=== PATIENT | female | born 1950 | race Caucasian/White ===

== ENCOUNTER 2018-10-26 20:30 | Outpatient (CLI) | payer MEDICARE, BC | END 2018-10-26 20:31 | LOC: SLEEPLAB 20:30 | PROVIDERS: ATTEND Family Medicine | DX: G47.33 Obstructive sleep apnea (adult) (pediatric) (principal); I50.9 Heart failure, unspecified; E11.9 Type 2 diabetes mellitus without complications; E66.9 Obesity, unspecified; I10 Essential (primary) hypertension | CPT/HCPCS: 95810 ==

== ENCOUNTER 2018-12-05 12:03 | Outpatient (CLI) | payer MEDICARE, BC ==
--- NOTE | 2018-12-05 12:49 | RAD ---
PA AND LATERAL CHEST: HISTORY: Dyspnea. COMPARISON: 08/28/2018 FINDINGS: Cardiomegaly with mild bilateral vascular congestion. No confluent pneumonia, overt edema, or pleura l effusion. Stable appearance from prior study. IMPRESSION: Stable cardiomegaly with mild bilateral vascular congestion. POS: TPC
== END 2018-12-05 12:04 | disposition home or self-care (01) ==
LOC: RAD 12:03
PROVIDERS: ATTEND Internal Medicine Pulmonary Disease
DX: R06.00 Dyspnea, unspecified (principal); I51.7 Cardiomegaly; R09.89 Other specified symptoms and signs involving the circulatory and respiratory systems
CPT/HCPCS: 71046

== ENCOUNTER 2019-01-20 08:05 | Inpatient (IN) | payer MEDICARE, BC ==
[2019-01-20 08:30] LABS: #Monocytes 0.9 thou/uL (0.11-0.59); #Neutrophils 5.4 thou/uL (1.40-6.50); %Basophils 0.4 % (0.0-1.0); %Eosinophils 0.4 % (0.0-10.0); %Lymphocytes 14.2 % (21.0-51.0); Hemoglobin 11.5 g/dL (12.0-16.0); Mean Corpuscular HGB CONC 32.1 g/dL (32.0-36.0); Mean Corpuscular Hemoglobin 29.6 pg (27.0-31.0); Mean Corpuscular Volume 92.2 fL (78.0-98.0); Mean Platelet Volume 8.3 fL (7.4-10.4); Platelet Count 164 thou/uL (130-400); RBC Distribution Width 14.2 % (11.5-14.5); White Blood Cell (WBC) Count 7.3 thou/uL (4.8-10.8)
--- NOTE | 2019-01-20 08:40 | RAD ---
EXAM: XR Chest 1 View Portable PROVIDED CLINICAL HISTORY: Pain COMPARISON: 12/05/2018 FINDINGS: Cardiac silhouette remains enlarged. Prominence of the pulmonary vasculature and pulmonary interstiti um. No focal consolidation, pleural fluid or pneumothorax apparent. IMPRESSION: Cardiomegaly and findings suggesting congestive failure.
[2019-01-20] MEDS ORDERED: Morphine 4 MG/ML VIAL ONE ×2 (08:42→09:07)
--- NOTE | 2019-01-20 08:42 | RAD ---
EXAM: XR Ankle Lt 3 View STANDARD PROVIDED CLINICAL HISTORY: Pain COMPARISON: None FINDINGS: There is no evidence for fracture or other acute osseous abnormality. Vascular calcifications are see n. Somewhat unusual ossification/calcification in a sheetlike manner involves the soft tissues anterior to the visualized mid tibial diaphyseal region. Posterior and plantar calcaneal enthesophyte formation is noted. IMPRESSION: 1. No evidence for an acute osseous abnormality. 2. Atherosclerosis. 3. Soft tissue findings at the anterior aspect of the tibia may reflect changes related to dermatomyo sitis. Chronic venous stasis could also be considered.
[2019-01-20 08:54] LABS: ALT (SGPT) 21 U/L (8-55); AST (SGOT) 21 U/L (5-34); Alkaline Phosphatase 91 U/L (40-150); Anion Gap 15 mmol/L (10-20); BUN (Urea Nitrogen) 51 mg/dL (9.8-20.1); Bilirubin, Total 1.1 mg/dL (0.2-1.2); CK (CPK) 146 U/L (29-168); Calc. Creatinine Clearance 0 mL/min (70-130); Calcium 9.3 mg/dL (7.8-10.44); Carbon Dioxide 20 mmol/L (23-31); Chloride 105 mmol/L (98-107); Estimated GFR-MDRD 30; Globulin 3.7 g/dL (2.4-3.5); Glucose 138 mg/dL (80-115); Potassium 4.4 mmol/L (3.5-5.1); Protein, Total 7.7 g/dL (6.0-8.3); Sodium 136 mmol/L (136-145)
[2019-01-20 08:55] LABS: Lipase 17 U/L (8-78)
--- NOTE | 2019-01-20 09:10 | ULT ---
EXAM: Bilateral lower extremity venous Doppler PROVIDED CLINICAL HISTORY: Lower extremity edema FINDINGS: Grayscale and color Doppler sonography with spectral analysis was performed of the common femoral, fe moral, popliteal, posterior tibial, greater saphenous and profunda femoral veins bilaterally. Evaluation is limited by patient body habitus. There is apparent noncompressibility involving the dis sindi femoral veins bilaterally. The evaluated venous structures demonstrate an otherwise normal sonographic appearance. Right-sided Hensley's cyst is noted. IMPRESSION: Findings suspicious for bilateral nonocclusive DVT. Evaluation is limited by body habitus.
[2019-01-20] MEDS ORDERED: Ondansetron PF 4 MG/2 ML Vial IVP PRN (09:55)
[2019-01-20] MEDS ORDERED: Acetaminophen 325 MG TAB PO PRN (09:55)
[2019-01-20] MEDS ORDERED: Ondansetron ODT 4 MG TAB SL PRN (09:55)
[2019-01-20] MEDS ORDERED: Sodium Chloride 0.9% 1,000 ML IV SCH (09:55)
[2019-01-20] MEDS ORDERED: Enoxaparin Sodium 30 MG/0.3 ML SYRINGE ONE (10:17)
[2019-01-20] MEDS ORDERED: Enoxaparin Sodium 80 MG/0.8 ML SYRINGE ONE (10:17)
[2019-01-20 11:54] VITALS: BMI 46.3
--- NOTE | 2019-01-20 13:09 | PDOC.FPRHP ---
- History of Present Illness Chief Complaint: bilateral ankle pain and swelling History of Present Illness: 68 yr old female with PMH of well controlled DM, chronic A-fib not on anticoagulation, HTN, and HLD who presents with 6 day history of bilateral ankle pain and swelling. States she stepped off into a small hole with left foot about 7 days ago and then next day her left ankle began to hurt. Thought it ay be a sprain 2/2 to stepping wrong the day prior. However then her right ankle (not involved in incident) began to have pain and swelling. Both ankles continued to throb at which point the pain became unbearable today and she came to ER. No chest pain or shortness of breath. Patient has been less active over the last 5 months but no recent long car rides or prolonged sitting/laying. She has minimal family hx of cancer, only reporting a maternal grandmother with "stomach cancer." She has not had a colonoscopy in several years but nothing found on last colonoscopy per patient. She denies hematochezia. No recent weight loss. She is supposed to go back for a sleep study titration for DRAKE however when questioned about this she reports that it was a very unproductive night and she didn't sleep at all and does not want to go through it again. She got oxygen at home following a one time drop in O2 sats during a nose bleed but has not needed to use it. Reports her O2 sat > 90%, usually 95-98%, which she checks daily. No smoking history. She has no recent surgery. ED Course: In the ER, she received 1 mg/kg dose of lovenox and 8 mg of morphine. - Allergies/Adverse Reactions Allergies Allergy/AdvReac Type Severity Reaction Status Date / Time No Known Allergies Allergy Verified 01/20/19 12:54 - Home Medications Medication Instructions Recorded Confirmed Type Carvedilol 25 mg PO BID 03/09/16 01/20/19 History Diltiazem HCl 60 mg PO TID 03/09/16 01/20/19 History Simvastatin [Zocor] 20 mg PO HS 03/09/16 01/20/19 History Furosemide [Lasix] 40 mg PO DAILY #0 tab 03/10/16 01/20/19 Rx Aspirin [Ecotrin] 81 mg PO DAILY 01/20/19 01/20/19 History Cholecalciferol (Vitamin D3) 2,000 unit PO DAILY 01/20/19 01/20/19 History [Vitamin D] Ferrous Gluconate 240 mg PO DAILY 01/20/19 01/20/19 History Glimepiride 1 mg PO DAILY 01/20/19 01/20/19 History Multivit-Min/FA/Lycopen/Lutein 1 each PO DAILY 01/20/19 01/20/19 History [Centrum Silver Tablet] - History PMHx: CKD stage 3 b, OA, pulmonary HTN, HLD, chronic a fib(not on anticoagulation), HTN, DM II, DRAKE (not treated) PSHx: tracheostomy in 2011(no longer in place) FHx: Mother: CHF, DM Father: DM, CVA MGM- stomach cancer Social: denies alcohol, drugs, or smoking - Review of Systems General: denies: fever/chills, weight/appetite/sleep changes, fatigue Eyes: denies: eye pain, vision changes ENT: denies: nasal congestion, rhinorrhea Respiratory: reports: cough, congestion. denies: shortness of breath Cardiovascular: reports: edema. denies: chest pain, palpitation Gastrointestinal: denies: nausea, vomiting, diarrhea, abdominal pain, GI bleeding Genitourinary: denies: dysuria, polyuria, discharge Skin: denies: rashes, lesions Musculoskeletal: reports: pain, tenderness, swelling, arthritis/arthralgias Neurological: denies: numbness, syncope, seizure, weakness Psychological: denies: anxiety, depression - Vital signs BP: [127/58] HR: [90] RR: [18] Tmax: [98.1] Pox: [93]% on [RA] Wt: [118 kg] - Physical Exam Constitutional: NAD, awake, alert and oriented, well developed, other (obese) HEENT: normocephalic and atraumatic, EOMI, conjunctiva clear, no scleral icterus , grossly normal hearing, normal nasal mucosa, MMM Neck: supple, FROM, trachea midline, no JVD Heart: RRR, normal S1/S2, no murmurs/rubs/gallops -Heart: bilateral foot/ankle 1+ edema Lungs: good air movement, no rales/rhonchi -Lungs: end expiratory wheezing worse in BLL, crackles in BLL, good air movement Abdomen: soft, non-tender, bowel sounds present Musculoskeletal: normal structure, normal tone -Musculoskeletal: right bottom steep tender to palpation Neurological: CN II-XII intact, normal sensation Skin: capillary refill <2 seconds FMR H&P: Results - Labs Result Diagrams: 01/20/19 08:24 01/20/19 08:24 Lab results: WBC 7.3 thou/uL (4.8-10.8) 01/20/19 08:24 Hgb 11.5 g/dL (12.0-16.0) L 01/20/19 08:24 Hct 35.9 % (36.0-47.0) L 01/20/19 08:24 MCV 92.2 fL (78.0-98.0) 01/20/19 08:24 Plt Count 164 thou/uL (130-400) 01/20/19 08:24 Neutrophils % 73.0 % (42.0-75.0) 01/20/19 08:24 Sodium 136 mmol/L (136-145) 01/20/19 08:24 Potassium 4.4 mmol/L (3.5-5.1) 01/20/19 08:24 Chloride 105 mmol/L (98-107) 01/20/19 08:24 Carbon Dioxide 20 mmol/L (23-31) L 01/20/19 08:24 BUN 51 mg/dL (9.8-20.1) H 01/20/19 08:24 Creatinine 1.70 mg/dL (0.6-1.1) H 01/20/19 08:24 Glucose 138 mg/dL (80-115) H 01/20/19 08:24 Calcium 9.3 mg/dL (7.8-10.44) 01/20/19 08:24 Total Bilirubin 1.1 mg/dL (0.2-1.2) 01/20/19 08:24 AST 21 U/L (5-34) 01/20/19 08:24 ALT 21 U/L (8-55) 01/20/19 08:24 Alkaline Phosphatase 91 U/L (40-150) 01/20/19 08:24 Creatine Kinase 146 U/L (29-168) 01/20/19 08:24 B-Natriuretic Peptide 845.8 pg/mL (0-100) H 01/20/19 08:24 Serum Total Protein 7.7 g/dL (6.0-8.3) 01/20/19 08:24 Albumin 4.0 g/dL (3.4-4.8) 01/20/19 08:24 Lipase 17 U/L (8-78) 01/20/19 08:24 - EKG Interpretation EKG: atrial fibrillation, rate 93, QRS 457, no ST elevation or changes. - Radiology Interpretation Chest x-ray Status: report reviewed by me (cardiomegaly and pulmonary vasculature prominence c/w CHF. no focal consolidation.) US - venous Status: report reviewed by me (bilateral nonocclusive distal femoral vein DVT, right bakers cyst.) Other Status: report reviewed by me (right ankle x-ray: no fracture. findings suggestive of dermatomyositis vs chornic venous stasis in pretibial area bilaterally.) FMR H&P: A/P - Problem List (1) Deep vein thrombosis (DVT) of femoral vein of both lower extremities Current Visit: Yes Status: Acute Code(s): I82.413 - ACUTE EMBOLISM AND THROMBOSIS OF FEMORAL VEIN, BILATERAL (2) Chronic atrial fibrillation Current Visit: Yes Status: Acute Code(s): I48.2 - CHRONIC ATRIAL FIBRILLATION (3) Chronic kidney disease Current Visit: No Status: Chronic Code(s): N18.9 - CHRONIC KIDNEY DISEASE, UNSPECIFIED (4) Congestive heart failure (CHF) Current Visit: No Status: Chronic Code(s): I50.9 - HEART FAILURE, UNSPECIFIED (5) Diabetes Current Visit: No Status: Chronic Code(s): E11.9 - TYPE 2 DIABETES MELLITUS WITHOUT COMPLICATIONS (6) Hyperlipemia Current Visit: No Status: Chronic Code(s): E78.5 - HYPERLIPIDEMIA, UNSPECIFIED (7) Hypertension Current Visit: No Status: Chronic Code(s): I10 - ESSENTIAL (PRIMARY) HYPERTENSION - Plan 68 yr old female with bilateral ankle pain and swelling unprovoked DVT -bilateral venous US with nonocclusive distal femoral DVT -patient not completely immobile, no known cancer and no recent surgery. -started on lovenox in ER, will continue tonight and consider eliquis vs coumadin vs xarelto tomorrow. -Discussed benefit and need for anticoagulation with patient -consider outpatient thrombosis panel Chronic atrial fibrillation -previously not on anticoagulation -rate controlled on diltiazem and coreg -documentation reviewed that patient did not want anticoagulation when diagnosis originally made -unclear if she has considered ablation or cardioversion in the past -particleboard factory worker: Dr. Taylor wheezing -likely 2/2 mild volume overload -cont home dose of lasix with a now dose -PRN duonebs available, unknown underlying pulmonary disease HFpEF -ECHO in 08/2018 with EF 60-65%, mod to severe pulm HTN -pulmonary vasculature prominence, BNP = 845 -not in exacerbation -cont lasix, coreg CKD stage 3 B -appears to be at her baseline BUN/Creatinine -daily BMP -Performance Solutions Specialist: Dr. Marin HTN -cont home medications DRAKE -patient refuses further treatment of this -has not followed up for titration of CPAP mod to severe pulm HTN -likely 2/2 untreated DRAKE -O2 sats wnl HLD -currently on simvastatin 20 mg however will be switching to atorvastatin 20 mg when her pills run out. PCP: Dr. Mena Code Status: Full on therapeutic anticoagulation GI ppx: none Dispo: likely 1-2 midnights pending long term care social worker choice of anticoagulation * of note, patient reports taking coreg 25 mg PO BID however in review of PCP and particleboard factory worker charts, she was to be on 12.5 mg BID due to bradycardia that improved on reduced dose. Will start the reduced dose and monitor this hospitalization. Addendum - Attending - Attending Attestation Date/Time: 01/20/19 3774 I personally evaluated the patient and discussed the management with Dr. Mccollum I agree with the History, Examination, Assessment and Plan documented above with any addition or exceptions noted below. Relatively unprovoked DVT patient recently less mobile not sure if DVT acute verse more chronic process. Would be prudent for occult malignancy w/u tumor markers routine CA screening colon and mammogram due no worrisome symptoms unexplained weight los, adenopathy, night sweats or undetermined pain. Ankle swollen with history last several days sensitive to bed sheet touching feet, right ankle slightly swollen and warm to touch tender with minimal movement suggestive of gout. Recommend uric acid level. Given CKD lovenox daily and consider conversion to DOAC i.e. eliquis given atrial fibrillation with CHADS VAS score greater than 2. Patient with significant disconnect between understanding of sleep study results and recommendation for titration study and DX of DRAKE
[2019-01-20] MEDS ORDERED: Calcium Carbonate 500 MG ChewTAB PO PRN (14:35)
[2019-01-20] MEDS ORDERED: Dextrose 50% Abboject 50 ML SYRINGE SLOW IVP PRN (14:35)
[2019-01-20] MEDS ORDERED: Senokot S 8.6-50 MG TAB PO PRN (14:35)
[2019-01-20] MEDS ORDERED: Dextrose 5% in Water 1,000 ML IV PRN (14:35)
[2019-01-20] MEDS ORDERED: predniSONE 20 MG TAB PO SCH (16:30)
[2019-01-20 17:40] LABS: CEA, Serum 2.79 ng/mL (< or = 5.0); Thyroid Stimulating Hormone 1.3835 uIU/mL (0.35-4.94)
[2019-01-20] MEDS: HumaLOG 300 UNITS/3 ML VIAL SC PRN (17:52)
--- NOTE | 2019-01-20 20:11 | ULT ---
US Pelvic History: Cancer screening for unprovoked deep venous thrombosis Comparison: None. Findings: Real-time grayscale and color evaluation of the pelvis performed transabdominal and transva ginal. Due to body habitus there is nonvisualization of the uterus nor ovaries. Impression: Nonvisualization of the pelvic organs.
[2019-01-20] MEDS: Atorvastatin Calcium 20 MG TAB PO SCH (20:49)
--- NOTE | 2019-01-21 06:25 | PDOC.FM ---
Addendum entered and electronically signed by Ele Rhoades MD 01/21/19 10:46 : GOUT: - possible cause of patient's leg pain - uric acid elevated - Patient being treated w/ prednisone, will complete a 10 day course Original Note: - Subjective Subjective: NAEO. Patient resting in bed. Patient states she feels better overall. Patient reports decreased pain in b/l LE. Patient states she walks with a walker or a cane at home. She states she takes precautions in order not to fall, such as no rugs or uses an electric scooter in stores. Discussed starting anticoagulation due to DVT and she states this is something she is willing to start despite the risks associated with it. She states she follows up with Dr. Mena, her PCP and Dr. Marin, her advertising sales consultant. - Objective MAR Reviewed: Yes Vital Signs & Weight: Vital Signs (12 hours) Temp Pulse Resp BP Pulse Ox 01/21/19 04:00 98.0 F 64 16 112/63 96 01/21/19 00:00 98.3 F 77 18 102/62 93 L 01/20/19 20:00 99.4 F 92 20 125/63 91 L Weight Weight 118.529 kg I&O: 01/19/19 01/20/19 01/21/19 06:59 06:59 06:59 Intake Total 330 Balance 330 Result Diagrams: 01/20/19 08:24 01/21/19 06:23 Phys Exam - Physical Examination Constitutional: NAD HEENT: PERRLA, moist MMs Neck: supple, full ROM Respiratory: clear to auscultation bilateral Cardiovascular: RRR Gastrointestinal: soft, non-tender, no distention Musculoskeletal: pulses present nonpitting edema to ankles b/l, non TTP, negative Homans sign Neurological: non-focal, moves all 4 limbs Psychiatric: normal affect, A&O x 3 Skin: no rash, normal turgor, cap refill <2 seconds Dx/Plan (1) Chronic atrial fibrillation Code(s): I48.2 - CHRONIC ATRIAL FIBRILLATION Status: Acute (2) Deep vein thrombosis (DVT) of femoral vein of both lower extremities Code(s): I82.413 - ACUTE EMBOLISM AND THROMBOSIS OF FEMORAL VEIN, BILATERAL Status: Acute (3) Chronic kidney disease Code(s): N18.9 - CHRONIC KIDNEY DISEASE, UNSPECIFIED Status: Chronic (4) Congestive heart failure (CHF) Code(s): I50.9 - HEART FAILURE, UNSPECIFIED Status: Chronic (5) Diabetes Code(s): E11.9 - TYPE 2 DIABETES MELLITUS WITHOUT COMPLICATIONS Status: Chronic (6) Hyperlipemia Code(s): E78.5 - HYPERLIPIDEMIA, UNSPECIFIED Status: Chronic (7) Hypertension Code(s): I10 - ESSENTIAL (PRIMARY) HYPERTENSION Status: Chronic - Plan Plan: 68 yr old female with bilateral ankle pain and swelling Unprovoked DVT Bilateral venous US with non-occlusive distal femoral DVT. Patient not completely immobile, no known cancer and no recent surgery. - Started on lovenox in ER. Discussed benefit and need for anticoagulation with patient who is willing to start. Will need to evaluate which anticoagulation medication is best in the setting of CKD stage 3b. Can consider eliquis vs xarleto vs coumadin. - US of pelvic for cancer screening neg - Consider outpatient thrombosis panel Chronic atrial fibrillation Previously not on anticoagulation. Documentation reviewed that patient did not want anticoagulation when diagnosis originally made - Rate controlled on diltiazem and coreg - Unclear if she has considered ablation or cardioversion in the past - Business Trainer: Dr. Taylor Wheezing likely 2/2 mild volume overload - Cont home dose of lasix with a now dose - PRN duonebs available, unknown underlying pulmonary disease HFpEF, not in exacerbation - ECHO in 08/2018 with EF 60-65%, mod to severe pulm HTN - Pulmonary vasculature prominence, BNP = 845 - Cont lasix, coreg CKD stage 3 B - Appears to be at her baseline BUN/Creatinine - Daily BMP - Search Advertising Strategist: Dr. Marin HTN - Cont home medications DRAKE - Patient refuses further treatment of this - Has not followed up for titration of CPAP Mod to severe pulm HTN likely 2/2 untreated DRAKE - O2 sats wnl HLD -currently on simvastatin 20 mg however will be switching to atorvastatin 20 mg when her pills run out. PCP: Dr. Mena Code Status: Full on therapeutic anticoagulation GI ppx: none Dispo: dc pending long term care administrator choice of anticoagulation * of note, patient reports taking coreg 25 mg PO BID however in review of PCP and plaster pattern caster charts, she was to be on 12.5 mg BID due to bradycardia that improved on reduced dose. Will start the reduced dose and monitor this hospitalization. Addendum - Attending - Attending Attestation Date/Time: 01/21/19 8849 I personally evaluated the patient and discussed the management with Dr. Rhoades. I agree with the History, Examination, Assessment and Plan documented above with any addition or exceptions noted below. PT worked with pt today but found ambulation difficult due to ankle pain. This is likely 2/2 gout. Will continue steroids. Will discuss anticoagulation with Dr. Marin to see what he is comfortable with in the setting of her CKD.
[2019-01-21 06:57] LABS: INR-International Normal Ratio 1.3; Prothrombin Time 16.3 SEC (12.0-14.7)
[2019-01-21 07:02] LABS: Anion Gap 15 mmol/L (10-20); BUN (Urea Nitrogen) 51 mg/dL (9.8-20.1); Calc. Creatinine Clearance 65 mL/min (70-130); Calcium 9.6 mg/dL (7.8-10.44); Carbon Dioxide 21 mmol/L (23-31); Chloride 106 mmol/L (98-107); Estimated GFR-MDRD 34; Glucose 167 mg/dL (80-115); Potassium 4.6 mmol/L (3.5-5.1); Sodium 137 mmol/L (136-145)
[2019-01-21] MEDS ORDERED: predniSONE 20 MG TAB PO SCH ×2 (08:00→09:45)
[2019-01-21] MEDS: Ferrous Sulfate 325 MG TAB PO SCH (08:55)
[2019-01-21] MEDS: Multivitamin W/ Minerals 1 TAB PO SCH (08:56)
[2019-01-21] MEDS: Glimepiride 1 MG TAB PO SCH (08:56)
[2019-01-21] MEDS: Aspirin 81 mg Enteric Coated Tablet PO SCH (08:56)
[2019-01-21] MEDS: Furosemide 40 MG TAB PO SCH (08:56)
[2019-01-21] MEDS ORDERED: Enoxaparin Sodium 120 MG/0.8 ML SYRINGE SC SCH (09:00)
[2019-01-21] MEDS: HumaLOG 300 UNITS/3 ML VIAL SC PRN ×2 (12:52→17:27)
[2019-01-21] MEDS: Apixaban 5 MG TAB PO SCH (19:57)
[2019-01-21] MEDS: Atorvastatin Calcium 20 MG TAB PO SCH (19:57)
[2019-01-22 06:11] LABS: Anion Gap 13 mmol/L (10-20); BUN (Urea Nitrogen) 62 mg/dL (9.8-20.1); Calc. Creatinine Clearance 67 mL/min (70-130); Calcium 9.6 mg/dL (7.8-10.44); Carbon Dioxide 23 mmol/L (23-31); Chloride 107 mmol/L (98-107); Estimated GFR-MDRD 35; Glucose 168 mg/dL (80-115); Potassium 4.6 mmol/L (3.5-5.1); Sodium 138 mmol/L (136-145)
--- NOTE | 2019-01-22 06:42 | PDOC.FM ---
Addendum entered and electronically signed by Ele Rhoades MD 01/22/19 11:10 : Patient being evaluated by PT today due to difficulty ambulating. Patient essentially unable to bear weight on presentation and difficulty ambulating. Patient was able to get to her bedside chair and bathroom yesterday afternoon/ this morning. She states she is ambulating at her baseline today. PT to evaluate. We can see what is recommended and if patient will need HH PT. Original Note: - Subjective Subjective: NAEO. Patient resting comfortably in bed. Patient states that the walking program came by her room yesterday, she was able to get up to the chair and the bathroom by herself. She state she feels much better. She thinks she will be fine when she goes home and feels safe/stable on her feet. - Objective MAR Reviewed: Yes Vital Signs & Weight: Vital Signs (12 hours) Temp Pulse Resp BP Pulse Ox 01/22/19 04:00 97.5 F L 67 18 151/75 H 94 L 01/22/19 00:00 98.0 F 58 L 16 147/69 H 92 L 01/21/19 20:00 92 L 01/21/19 19:37 97.6 F 56 L 16 127/54 L 93 L Weight Weight 118.529 kg I&O: 01/20/19 01/21/19 01/22/19 06:59 06:59 06:59 Intake Total 330 770 Balance 330 770 Result Diagrams: 01/20/19 08:24 01/22/19 04:45 Phys Exam - Physical Examination Constitutional: NAD HEENT: PERRLA, moist MMs Neck: full ROM Respiratory: clear to auscultation bilateral Cardiovascular: RRR Gastrointestinal: soft, non-tender, no distention Musculoskeletal: pulses present nonpitting edema b/l to level Neurological: non-focal, moves all 4 limbs Psychiatric: normal affect, A&O x 3 Skin: no rash, normal turgor, cap refill <2 seconds Dx/Plan (1) Chronic atrial fibrillation Code(s): I48.2 - CHRONIC ATRIAL FIBRILLATION Status: Acute (2) Deep vein thrombosis (DVT) of femoral vein of both lower extremities Code(s): I82.413 - ACUTE EMBOLISM AND THROMBOSIS OF FEMORAL VEIN, BILATERAL Status: Acute (3) Chronic kidney disease Code(s): N18.9 - CHRONIC KIDNEY DISEASE, UNSPECIFIED Status: Chronic (4) Congestive heart failure (CHF) Code(s): I50.9 - HEART FAILURE, UNSPECIFIED Status: Chronic (5) Diabetes Code(s): E11.9 - TYPE 2 DIABETES MELLITUS WITHOUT COMPLICATIONS Status: Chronic (6) Hyperlipemia Code(s): E78.5 - HYPERLIPIDEMIA, UNSPECIFIED Status: Chronic (7) Hypertension Code(s): I10 - ESSENTIAL (PRIMARY) HYPERTENSION Status: Chronic - Plan Plan: 68 yr old female with bilateral ankle pain and swelling Unprovoked DVT Bilateral venous US with non-occlusive distal femoral DVT. Patient not completely immobile, no known cancer and no recent surgery. - Started on lovenox in ER. Discussed benefit and need for anticoagulation with patient who is willing to start. Patient started on eliquis on 01/21/19. - US of pelvic for cancer screening neg, cancer markers negative - Consider outpatient thrombosis panel GOUT Possible cause of patient's leg pain. Pain has now resolved. - Uric acid elevated - Patient being treated w/ prednisone, will complete a 10 day course. Chronic atrial fibrillation Previously not on anticoagulation. Documentation reviewed that patient did not want anticoagulation when diagnosis originally made - Rate controlled on diltiazem and coreg - Cement Finisher: Dr. Taylor Wheezing likely 2/2 mild volume overload - Cont home dose of lasix with a now dose - PRN duonebs available, unknown underlying pulmonary disease HFpEF, not in exacerbation - ECHO in 08/2018 with EF 60-65%, mod to severe pulm HTN - Pulmonary vasculature prominence, BNP = 845 - Cont lasix, coreg CKD stage 3 B - Appears to be at her baseline BUN/Creatinine - Foam Tank Laminator: Dr. Marin. HTN - Cont home medications DRAKE Patient refuses further treatment of this - Has not followed up for titration of CPAP Mod to severe pulm HTN likely 2/2 untreated DRAKE - O2 sats wnl HLD -currently on simvastatin 20 mg however will be switching to atorvastatin 20 mg when her pills run out. PCP: Dr. Mena Code Status: Full on therapeutic anticoagulation GI ppx: none Dispo: dc pending PT to evaluate and treat, continued therapy for DVT Addendum - Attending - Attending Attestation Date/Time: 01/22/19 1219 I personally evaluated the patient and discussed the management with Dr. Rhoades. I agree with the History, Examination, Assessment and Plan documented above with any addition or exceptions noted below.
[2019-01-22 07:46] VITALS: BP 157/74; TEMP 97.8
[2019-01-22] MEDS ORDERED: predniSONE 20 MG TAB PO SCH (08:00)
[2019-01-22] MEDS: Apixaban 5 MG TAB PO SCH (08:01)
[2019-01-22] MEDS: Glimepiride 1 MG TAB PO SCH (08:01)
[2019-01-22] MEDS: Ferrous Sulfate 325 MG TAB PO SCH (08:01)
[2019-01-22] MEDS: Aspirin 81 mg Enteric Coated Tablet PO SCH (08:01)
[2019-01-22] MEDS: Furosemide 40 MG TAB PO SCH (08:02)
[2019-01-22] MEDS: Multivitamin W/ Minerals 1 TAB PO SCH (08:02)
[2019-01-22] MEDS: HumaLOG 300 UNITS/3 ML VIAL SC PRN (12:21)
--- NOTE | 2019-01-22 14:34 | PQF ---
CLINICAL DOCUMENTATION IMPROVEMENT CLARIFICATION FORM: ICD-10 Updated PLEASE DO AN ADDENDUM TO THE PROGRESS NOTE WITH ANY DOCUMENTATION UPDATES OR ADDITIONS AND CARRY THROUGH TO DC SUMMARY. THANK YOU. DATE: 01/22/19 ATTN: DR. KEN Please exercise your independent, professional judgment in responding to the clarification form. Clinical indicators are provided on the bottom of this form for your review Please check appropriate box(s): HEART FAILURE: A. TYPE: [ ] Systolic / HFrEF [x ] Diastolic / HFpEF [ ] Combined Systolic / Diastolic B. ACUITY [ ] Acute [ ] Acute on Chronic [ x] Chronic [ ] Other diagnosis [ ] Unable to determine In addition, please specify: Present on Admission (POA): [ x ] Yes [ ] No [ ] Unable to determine For continuity of documentation, please document condition throughout progress notes and discharge summary. Thank You. 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 All Rights Reserved [email or web address] Office: [phone] [facility]ENTERArthur
--- NOTE | 2019-01-23 05:11 | DIS ---
DATE OF ADMISSION: 01/20/2019 DATE OF DISCHARGE: 01/22/2019 RESIDENT: Ele Rhoades MD ADMITTING ATTENDING: DR PERCY ROSALES DISCHARGE ATTENDING: DR ELI CLEMENTE CONSULTS: Physical Therapy. PROCEDURES: 1. Chest x-ray showing cardiomegaly and findings suggesting congestive heart failure. 2. Ankle x-ray showing no acute osseous abnormality, soft tissue findings at the anterior aspect of the tibia that may reflect changes related to dermatomyositis or chronic venous stasis. 3. Venogram showing bilateral nonocclusive deep venous thrombosis. 4. A pelvic ultrasound showing no abnormalities. PRIMARY DIAGNOSIS: Unprovoked deep venous thrombosis, gout. SECONDARY DIAGNOSES: Chronic atrial fibrillation, wheezing, heart failure with preserved ejection fraction, chronic kidney disease stage IIIB, hypertension, obstructive sleep apnea, pulmonary hypertension, hyperlipidemia. DISCHARGE MEDICATIONS: 1. Eliquis 10 mg oral twice daily 2. Lipitor 20 mg oral bedtime 3. Coreg 12.5mg oral twice daily 4. Prednisone 40 mg oral every morning for 10 day course 5. Diltiazem 60mg oral three times daily 6. Lasix 40 mg oral daily 7. Centrum silver 1 each oral daily 8. Vit D3 2000 u oral daily 9. Glimepiride 1mg oral daily 10. Ferrous gluconate 240mg oral daily DISCONTINUED MEDICATIONS: 1. Zocor 20mg oral bedtime 2. Carvedilol 25mg oral twice daily 3. ASA 81 mg daily HISTORY OF PRESENT ILLNESS/HOSPITAL COURSE: This is a 68-year-old female with past medical history of well-controlled diabetes, chronic atrial fibrillation, not on any anticoagulation, hypertension, hyperlipidemia and heart failure with preserved ejection fraction, who presented to the ED with history of 6 days of bilateral ankle pain and swelling. The patient reported stumbling after stepping into a small hole with her left foot about 1 week ago and stated that her left ankle began to hurt after this. She states after a couple of days of favoring the left than her right, ankle began to have pain and swelling as well. The patient endorses being less active over the last 5 months or so. Denied any long car rides or prolonged sitting or lying. The patient reports minimal family history of cancer. She has not had a colonoscopy in several years, but said her last one was normal. In the ER, the patient was given therapeutic Lovenox and 8 mg of morphine. The patient was admitted to medical for further workup. The patient had an EKG, that showed atrial fibrillation with a rate of 93. The patient was started on Eliquis for her DVTs. Dr. Marin was called to verify that Eliquis could be started in the setting of her chronic kidney disease. The patient had a pelvic ultrasound to evaluate for cancer and this was normal. The patient also had cardiac markers such as CA-19-9, CEA and AFP that were all within normal limits. The patient's chronic medical condition remained stable throughout her stay. The patient did have difficulty ambulating on arrival and felt unsteady and pain on her feet. The patient did state that she was back to her baseline on the day of discharge and she was able to bear weight. She was able to transition from the bed to the bedside chair as well as go to the bathroom on her own using a walker. If needed, the patient can be set up with home health and physical therapy on that outpatient setting. The patient was counseled on starting anticoagulation such as going over the side effects not including GI bleeding, brain bleeds. DISPOSITION: Stable. DISCHARGE INSTRUCTIONS: 1. Location: Home. 2. Diet: Heart healthy. 3. Activity: Ad uday with fall precautions and using walker. 4. Followup: a. Follow up with PCP, Dr. Mena within one week. b. Follow up with Dr. Marin as scheduled. c. Follow up with Dr. Taylor as scheduled. Job ID: [id number] MTDD
== END 2019-01-22 15:23 | disposition home or self-care (01) | DRG 300 ==
LOC: ERS 08:05 → T4-B 09:55
PROVIDERS: ADMIT Family Medicine; ATTEND Family Medicine
DX: I82.413 Acute embolism and thrombosis of femoral vein, bilateral (principal); I13.0 Hypertensive heart and chronic kidney disease with heart failure and stage 1 through stage 4 chronic kidney disease, or unspecified chronic kidney disease; I50.32 Chronic diastolic (congestive) heart failure; Z68.42 Body mass index [BMI] 45.0-49.9, adult; E66.9 Obesity, unspecified; I27.20 Pulmonary hypertension, unspecified; I48.2 Chronic atrial fibrillation; E78.5 Hyperlipidemia, unspecified; E11.22 Type 2 diabetes mellitus with diabetic chronic kidney disease; N18.3 Chronic kidney disease, stage 3 (moderate); M19.90 Unspecified osteoarthritis, unspecified site; M10.9 Gout, unspecified; G47.33 Obstructive sleep apnea (adult) (pediatric); Z99.81 Dependence on supplemental oxygen; Z79.01 Long term (current) use of anticoagulants; Z79.84 Long term (current) use of oral hypoglycemic drugs; Z79.82 Long term (current) use of aspirin; Z79.899 Other long term (current) drug therapy
CPT/HCPCS: 36415; 36416; 71045; 76856; 80048; 80053; 82105; 82378; 82550; 83690; 83880; 84443; 84484; 84550; 85025; 85610; 86301; 93005; 93970; 94760; 96372; 96374; J1650; J2270; J7512

== ENCOUNTER 2019-03-29 20:30 | Outpatient (CLI) | payer MEDICARE, BC | END 2019-03-29 20:31 | disposition home or self-care (01) | LOC: SLEEPLAB 20:30 | PROVIDERS: ATTEND Family Medicine | DX: G47.33 Obstructive sleep apnea (adult) (pediatric) (principal); E66.9 Obesity, unspecified; E11.9 Type 2 diabetes mellitus without complications; I50.9 Heart failure, unspecified; I11.0 Hypertensive heart disease with heart failure; I48.91 Unspecified atrial fibrillation | CPT/HCPCS: 95811 ==

== ENCOUNTER 2020-09-10 11:48 | Inpatient (IN) | payer MEDICARE, BC ==
--- NOTE | 2020-09-10 12:26 | PDOC.FPRHP ---
- History of Present Illness Chief Complaint: weakness, lightheadedness History of Present Illness: 2 days ago, pt was feeling burning inside her chest and b/l UE while sitting watching tv. Used to work out on a bike ~1hr 5d/wk and never had CP. She was also feeling weak on her legs and would get lightheaded on standing. The pt had been checking her BP at home and it was "all over the place" and she "has not been able to get my pulse rate above 40 for 4 days". Normally, her BP is ~130s/mid-60s and HR usually 50s-60s. She is unsure if she is always in AFib, despite Diltiazem. Taking the Dilt and Coreg together made her feel dizzy so she takes Coreg at breakfast, Dilt "mid-morning", 8hrs later the next Dilt, Coreg at dinner ~6pm, then Dilt at about midnight. Has been cutting Dilt in half for ~1 wk because the full tabs were causing her to feel weak. Last saw Dr. Taylor in 2019. Pulse ox and BP always higher on L. SpO2 92 vs 97% PCP Dr. Mena Code: Full - Allergies/Adverse Reactions Allergies Allergy/AdvReac Type Severity Reaction Status Date / Time No Known Allergies Allergy Verified 10/18/19 12:13 - Home Medications Medication Instructions Recorded Confirmed Type Diltiazem HCl 60 mg PO TID 03/09/16 09/10/20 History Furosemide [Lasix] 40 mg PO DAILY #0 tab 03/10/16 09/10/20 Rx Cholecalciferol (Vitamin D3) 2,000 unit PO DAILY 01/20/19 09/10/20 History [Vitamin D] Ferrous Gluconate 240 mg PO DAILY 01/20/19 09/10/20 History Glimepiride 1 mg PO DAILY 01/20/19 09/10/20 History Atorvastatin Calcium [Lipitor] 20 mg PO HS #30 tab 01/22/19 09/10/20 Rx Carvedilol [Coreg] 12.5 mg PO BID #30 tablet 01/22/19 09/10/20 Rx Apixaban [Eliquis] 5 mg PO BID 09/10/20 09/10/20 History Aspirin [Ecotrin] 81 mg PO DAILY 02/11/21 02/11/21 History - History PMHx: AFib, CHF (EF 55-60% in 2019), CKD w renal insuff, T2DM, HTN, OA, DVT PSHx: trach in 2011 FHx: Dad - stroke, T2DM. Mom - CHF, T2DM. Social: lives at home by self. No t/a/d. - Review of Systems General: reports: fatigue. denies: fever/chills Eyes: denies: vision changes Respiratory: denies: cough, shortness of breath, exercise intolerance Cardiovascular: reports: chest pain. denies: palpitation, edema, orthopnea Gastrointestinal: denies: vomiting, diarrhea Genitourinary: denies: dysuria, polyuria Skin: denies: rashes, itching Musculoskeletal: reports: pain, arthritis/arthralgias. denies: swelling Neurological: reports: weakness. denies: syncope, seizure - Vital signs BP: 166/84 (Manual BP), Temp: 98.4 (Oral), HR ~30bpm on average - Physical Exam Constitutional: NAD, awake, alert and oriented, well developed HEENT: normocephalic and atraumatic, EOMI, grossly normal vision, grossly normal hearing -HEENT: Mucosa dry, no tenting of skin, cap refill good Neck: supple, FROM Heart: normal S1/S2, no murmurs/rubs/gallops, pulses present (2+ b/l radial and dp) Lungs: CTAB, no respiratory distress, good air movement Abdomen: soft Musculoskeletal: normal structure, normal tone, ROM grossly normal Neurological: no focal deficit, CN II-XII intact Skin: no rash/lesions, good turgor, capillary refill <2 seconds Heme/Lymphatic: no unusual bruising or bleeding Psychiatric: normal mood and affect, good judgment and insight, intact recent and remote memory FMR H&P: Results - Labs Result Diagrams: 09/11/20 06:10 Lab results: WBC 4.7 BUN 70 Cr 1.83 Trop 0.038 BNP 680 - Radiology Interpretation Chest x-ray Status: report reviewed by me (cardiomegaly and pulmonary vascular congestion) FMR H&P: A/P - Plan This is a 70F with a hx of AFib who presented to the ED for symptomatic bradycardia. Symptomatic bradycardia - Weakness, lightheadedness on standing. No sxs while sitting - Pt in AFib on EKG and on ED monitor, ranging from 15-40bpm - If pt symptomatic at rest, will admin atropine and/or externally pace. Currently, she has pads on. - Admit to CCU instead of IMCU d/t increased availability of crash cart - Cards, Dr. Simmons, consulted. Appreciate recs - Hold home Coreg and Dilt - Strict bedrest for now. AFib - Hx of AFib. Present in ED on admission - Hold home Coreg and Dilt - Dr. Taylor is her dental hygiene professor - Cardiology consulted, as above Indeterminate troponin - Trop 0.038. Will trend - Likely demand 2/2 bradycardia - Cardiology consulted, as above CKD - BUN 70, Cr 1.83 same as visit in 04/2020 - CrCl 50 - Renally dose medications - Dr. Marin is evaporative cooler installer T2DM - NPO for possible procedure, then CC diet - Restart home glimperide once off NPO - hypoglycemia protocol; diabetes education - am BMP for BG check - A1c pending HTN - BP 160s/80s in ED. Accuracy questionable given bradycardia - Hold home Coreg - Monitor vitals CHF - Echo 2019 report shows EF 55-60% with concentric hypertrophy but no mention of diastolic dysf - Currently dry on exam but will avoid IVF for now given precariousness of pt's status - Caution with fluid resuscitation throughout hospitalization - Hold home lasix for now Hx DVT - DVT in R femoral vein, per pt. Was on Eliquis but became cost-prohibitive - SCDs for now given likelihood of procedure. Can change to Lovenox 40 afterward OA - Can consult PT for eval and change activity after improvement of bradycardia Dispo: admit to CCU given increased availability of crash cart. Management of bradycardia per cardiology recs. Diet: NPO pending cards recs DVT Ppx: SCDs pending cards recs GI Ppx: not indicated PCP: Rajesh Code: Full FMR H&P: Upper Level - Plan Date/Time: 09/10/20 1225 I, [Evangelist Javier [email or web address]], have evaluated this patient and agree with findings/plan as outlined by international flight attendant resident. Pertinent changes/additions are listed here. 70-year-old female with past medical history of A. fib presents as a transfer from [facility] for bradycardia. She has had 4 days of heart rate in the 30s and 40s at home and has had associated weakness shortness of breath and burning chest pain. Symptoms have been exacerbated by exertion. Of note she takes carvedilol and diltiazem at home, her dental hygiene professor is Dr. Taylor. She is not on anticoagulation because of costs. On exam she is bradycardic to 29 bpm otherwise vital signs are normal. Her heart has irregular rhythm but no murmurs. Lungs clear to auscultation bilaterally mental status is alert and oriented x3 and patient is conversational in no distress. Assessment and plan Symptomatic bradycardia Patient is hemodynamically stable for the time being. Currently not requiring atropine or external pacing. Pads are in place with crash cart in the room. Will admit to CCU as IMCU overflow does not allow crash cart to stay in patient rooms. Will consult cardiology and await recommendations. We will plan for atropine or external pacing if patient should become unstable. Elevated troponin, likely NSTEMI type 2 Likely secondary to bradycardia, will trend A. fib, congestive heart failure, CKD, type 2 diabetes, hyperlipidemia, DRAKE, hypertension Continue home medications except as listed above CODE: FULL dispo: inpt, CCU. Expect at least 2 midnights. Addendum - Attending - Attending Attestation Date/Time: 09/11/20 0708 I personally evaluated the patient and discussed the management with Dr. Mohan Wilson yesterday in the ER at time of admission. I agree with the History, Examination, Assessment and Plan documented above with any addition or exceptions noted below.
[2020-09-10 13:08] LABS: Troponin I 0.067 ng/mL (< 0.028)
[2020-09-10] MEDS ORDERED: Dextrose 5% in Water 1,000 ML IV PRN (13:50)
[2020-09-10] MEDS ORDERED: Dextrose 50% Abboject 50 ML SYRINGE SLOW IVP PRN (13:50)
[2020-09-10 15:31] LABS: SARS-CoV-2 NAA Rapid Test DETECTED (NotDetected)
[2020-09-10 16:14] LABS: Troponin I 0.044 ng/mL (< 0.028)
[2020-09-10 16:15] LABS: Hemoglobin A1c 6.2 % (4.0-6.0)
[2020-09-10 17:36] VITALS: BMI 47.2
--- NOTE | 2020-09-10 18:35 | CON ---
DATE OF CONSULTATION: 09/10/2020 REASON FOR CONSULTATION: Bradycardia, symptomatic. PRIMARY ADMINISTRATIVE DIETITIAN: Dr. Tejas Taylor. HISTORY OF PRESENT ILLNESS: Ms. Pritchett is a very pleasant 70-year-old white female, who comes to the hospital for lightheadedness and tiredness. She was seen in the ER in [place], and was found to be bradycardic in the 20s to 30s, so she was transferred over for further evaluation and care. In the ER, she remained in the 30s, 20s, blood pressure in the 160s and she is just sitting on her bed, feeling just fine. She has been on diltiazem and carvedilol for her atrial fibrillation, which is chronic in her, and she has been pretty much rate controlled, however, she states for the last week she has been feeling very tired. She noted that she could not get her heart rate above 40, so she only took about half of the Coreg that she was supposed to and 1/4 of the diltiazem that she was supposed to, but she was still taking them. She had no shortness of breath on my evaluation, and denied any angina or lightheadedness, just feeling very tired. She was admitted later on. No swab was shown to be positive for COVID-19. PAST MEDICAL HISTORY: 1. Chronic atrial fibrillation. 2. Hypertension. 3. Hyperlipidemia. 4. Type 2 diabetes. 5. Chronic kidney disease, stage 3. She underwent dialysis for 2 months in 2011. 6. History of DVT. 7. Chronic diastolic heart failure. OUTPATIENT MEDICATIONS: 1. Prednisone. 2. Multivitamin. 3. Glimepiride. 4. Lasix. 5. Ferrous gluconate. 6. Diltiazem 60 mg t.i.d. 7. Vitamin D. 8. Carvedilol 12.5 b.i.d. 9. Atorvastatin. 10. Eliquis 10 mg b.i.d., however, she has been on 5 mg b.i.d. and when I talked to her, she tells me that she could not afford it and has not been taking that medication. ALLERGIES: NO KNOWN DRUG ALLERGIES. SOCIAL HISTORY: No alcohol, tobacco, or drugs. FAMILY HISTORY: Mother with history of heart failure. REVIEW OF SYSTEMS: A 12-point review of systems was done and was found to be negative other than stated in the history of present illness. PHYSICAL EXAMINATION: VITAL SIGNS: Temperature 96.4, pulse 39, respiratory rate 16, saturating 100% on 2 L nasal cannula, blood pressure 164/81. GENERAL: Awake, alert, oriented x3, no distress. HEENT: Normocephalic and atraumatic. NECK: Supple. LUNGS: Clear. CARDIOVASCULAR: S1 and S2. No S3 or S4. No murmurs. No rubs. ABDOMEN: Soft. Positive bowel sounds. EXTREMITIES: No edema. SKIN: Warm and dry. LABORATORY DATA: Laboratory work was reviewed. Troponin point 0.06, 0.04. Hemoglobin A1c is 6.2. White count of 4, hemoglobin of 12, hematocrit 40, and platelet count of 159. Chemistries; creatinine 1.83 which is close to her baseline. BNP was 680. COVID-19 PCR was detected positive. Chest x-ray showed moderate cardiomegaly, pulmonary vascular congestion. ASSESSMENT: 1. Symptomatic bradycardia. 2. Coronavirus disease 2019 infection. 3. History of chronic atrial fibrillation, currently in slow ventricular response. 4. History of diastolic heart failure. 5. History of deep venous thrombosis. PLAN: 1. Would cover with full dose anticoagulation with Lovenox subcu. 2. She will definitely need a pacemaker, however, with her positive COVID status at this time, this would be prohibitive unless emergent. 3. We will start her on dobutamine drip. She will probably need a central line as well for this. 4. If she becomes unstable, hypotensive, more short of breath, alter mentation, starts having chest pain, we will do an emergency temporary pacemaker for her. Otherwise, at this time, we will continue to monitor. 5. Obviously, she will be off her beta-nelsy and calcium-channel nelsy from now on. Thank you for letting us to participate in the care of your patient. 45 minutes of critical care time. Job ID: [id number]
[2020-09-10] MEDS: DOPamine 400 MG/D5W 250 ML 250 ML IVPB SCH (19:39)
--- NOTE | 2020-09-10 19:47 | RAD ---
PORTABLE CHEST: 09/10/20 PROVIDED CLINICAL HISTORY: Central line placement. FINDINGS: Comparison examination earlier same date. Interval placement of a right IJ central line, tip of which terminates in the expected location of SV C. There is no evidence for pneumothorax. Additional significant interval change with respect to the prior examination not apparent. IMPRESSION: As above. POS: SANTIAGO
--- NOTE | 2020-09-10 20:16 | PDOC.CNTRL ---
Central Line Procedure Note - Procedure Date: 09/10/20 Time: 19:00 - PreProcedure Diagnosis: bradycardia requiring dopamine - PostProcedure Diagnosis: same - Description Focused site: internal jugular: Right Ultrasound guidance: Yes Patient tolerated procedure: no complications Procedure in Details: time out performed. consent obtained. prepped and drapped in usual sterile fashion. Local injected. R. IJ canulated under US guidance. Seldinger technique used to place 7 yi triple lumen CVC. Flush and aspirate x3. sutured in placed with antimicrobal patch over insertion site. CVC placement confirmed with CXR with tip above right atrium. EBL 5mL. no immediate complications.
[2020-09-11 00:29] LABS: Actual Bicarbonate (HCO3a) 19.1 mEq/L (22-28); Base Excess (BEa) -6.1 mEq/L (-2.0 to +3.0); CO2 Tension 37.1 mmHg (35.0-45.0); Calcium, Ionized (arterial) 1.22 mmol/L (1.12-1.30); Hemoglobin (Hb) 13.3 g/dL (12.0-16.0); O2 Tension (PaO2), arterial 69.7 mmHg (> 70.0); pH, Arterial 7.33 (7.35-7.45)
[2020-09-11 00:31] LABS: ALV-art Gradient 197.645 mmHg (0-20); Puncture Site RRA
[2020-09-11] MEDS ORDERED: Melatonin 3 MG TAB PO PRN (00:40)
--- NOTE | 2020-09-11 00:49 | PDOC.BPN ---
- Brief Progress Note Encounter Date: 09/11/20 Encounter Time: 12:10 Was paged that patient had new oxygen requirement. Patient satting low-90s on 6L NC. Went to evaluate patient and she was resting comfortably without any signs of respiratory distress. Lungs demonstrated scant wheeze but otherwise no crackles or rhonchi identified, breath sounds heard in all lung castro. In combination with patient's bradycardia, suspect possible worsening of COVID pna. CXR done after central line demonstrated no focal changes and no pneumothorax, repeat CXR ordered. Blood gas demonstrated slightly low pH and pO2 but normal pCO2. BNP from outside ED slightly above baseline. Suspect anxiety may be playing a component, will offer melatonin to help patient try to get some sleep. Will start steroids for COVID and can consider adding convalescent plasma. Can also consider dose of lasix for diuresis. Discussed possible need of HFNC if oxygenation worsens, patient agreeable. Patient continues to state that she is a full code.
[2020-09-11] MEDS ORDERED: Dexamethasone 4 mg/ml Vial SLOW IVP SCH (01:00)
[2020-09-11] MEDS: DOPamine 400 MG/D5W 250 ML 250 ML IVPB SCH ×2 (04:28→15:25)
[2020-09-11] MEDS ORDERED: hydrOXYzine 25 MG TAB PO PRN (05:46)
--- NOTE | 2020-09-11 05:56 | PDOC.FM ---
- Subjective Subjective: Ms. Pritchett is doing well this morning. She was sitting up comfortably in bed, watching tv, and continues to deny SOB, CP, MUNOZ, nasal congestion, sore throat, N/V/D. Despite this, she is still requiring O2 supplementation. She denies any sick contacts. - Objective Vital Signs & Weight: Vital Signs (12 hours) Temp Pulse Ox 09/11/20 04:00 93 L 09/11/20 00:00 98.7 F 92 L 09/10/20 20:00 97.5 F L 93 L 09/10/20 17:51 95 Weight Weight 121 kg Most Recent Monitor Data Heart Rate from ECG 58 NIBP 132/60 NIBP BP-Mean 84 Respiration from ECG 29 SpO2 91 I&O: 09/09/20 09/10/20 09/11/20 06:59 06:59 06:59 Intake Total 870 Output Total 150 Balance 720 Result Diagrams: 09/11/20 06:10 Phys Exam - Physical Examination Constitutional: NAD Neck: supple, full ROM Respiratory: no rales, clear to auscultation bilateral Poor air movement despite deep breaths Cardiovascular: no significant murmur AFib in the mid-40s per monitor but 34 when taken manually Musculoskeletal: no edema, pulses present (2+ radial and dp b/l) Neurological: non-focal, moves all 4 limbs Psychiatric: normal affect, A&O x 3 Skin: no rash Dx/Plan - Plan Plan: This is a 70F with a hx of AFib who presented to the ED for symptomatic bradycardia. Symptomatic bradycardia - Weakness, lightheadedness on standing. No sxs while sitting - Admit to CCU instead of IMCU d/t increased availability of crash cart - Cards, Dr. Simmons, consulted. Appreciate recs * Th Lovenox * Dopamine drip * Pacemaker placement needed but covid + therefore will be postponed unless it becomes emergent. D/c NPO > clear fluid diet - Central line placed 09/10 for dopamine gtt - Hold home Coreg and Dilt - Ambulate with assist AFib - Hx of AFib. Present on admission with slow ventricular response - Hold home Coreg and Dilt - Cardiology consulted, as above - Dr. Taylor is her library associate. Echo ordered Covid PNA - Covid + in ED on 09/10 - New O2 requirement, on NC. Baseline is RA. * Suspect anxiety is contributing as she was satting well on RA in the ED prior to dx and precautions. Hydroxyzine prn. Can consider low-dose benzo if air hunger becomes an issue * IS-WA q2h for likely atelectasis component - ABG obtained on 09/10 with change in O2 requirement but pt was on 6L NC at the time. * Shows mild metabolic acidosis with appropriate resp compensation, per Winter's formula * A-a gradient shows V/Q mismatch likely 2/2 PNA - CXR shows mild increase in infiltrates + cardiomegaly + vascular congestion more c/w CHF than covid at this time - Started on Decadron (09/10), Remdesivir (09/11), and convalescent plasma (09/11) - Droplet precautions Indeterminate troponin - Trop 0.038 > 0.067 > 0.044 - Suspect demand 2/2 bradycardia - Cardiology consulted, as above CKD - BUN 70, Cr 1.83 same as visit in 04/2020 - CrCl 50 - Monitor with am BMPs - Renally dose medications - Dr. Marin is link trainer maintenance worker T2DM - Clear liquid, then CC diet - hypoglycemia protocol; diabetes education - ACHS checks - A1c 6.2 - Mild and bedtime SSI given admin of steroids - Consider restarting home glimepiride HTN - BP 160s/80s in ED > 132/60. Accuracy questionable given bradycardia - Consider placing art line for better measurements - Hold home Coreg - Monitor vitals CHF - Echo 2018 report shows EF 55-60% with concentric hypertrophy but no mention of diastolic dysf - CXR results, as above, with findings c/w CHF - BNP 680 on admission but >1100 this am but BUN 70 and dry on exam, therefore will start LR at mIVF - Caution with fluid resuscitation throughout hospitalization - Hold home lasix for now Hx DVT - DVT in R femoral vein, per pt. Was on Eliquis but became cost-prohibitive - Th Lovenox per [place] recs OA - Can consult PT for eval and change activity after improvement of bradycardia Dispo: admit to CCU given increased availability of crash cart. Management of bradycardia per cardiology recs. Pacemaker pending d/c of covid precautions, unless need becomes emergent. IVF: LR 140mL/h Diet: Clear liquid DVT Ppx: Lovenox GI Ppx: not indicated PCP: Rajesh Code: Full Addendum - Attending - Attending Attestation Date/Time: 09/11/20 0874 I personally evaluated the patient and discussed the management with Dr. Yves Wilson. I agree with the History, Examination, Assessment and Plan documented above with any addition or exceptions noted below.
[2020-09-11 06:48] LABS: Anion Gap 16 mmol/L (10-20); BUN (Urea Nitrogen) 62 mg/dL (9.8-20.1); Calc. Creatinine Clearance 58 mL/min (70-130); Calcium 9.3 mg/dL (7.8-10.44); Carbon Dioxide 20 mmol/L (23-31); Chloride 108 mmol/L (98-107); Glucose 235 mg/dL (83-110); Potassium 4.7 mmol/L (3.5-5.1); Sodium 139 mmol/L (136-145)
[2020-09-11] MEDS: HumaLOG 300 UNITS/3 ML VIAL SC PRN ×3 (06:52→18:07)
--- NOTE | 2020-09-11 08:07 | RAD ---
AP CHEST: Date: 09/11/2020 INDICATION: Shortness of breath. COMPARISON: 09/10/2020. FINDINGS: Cardiomegaly. Mild vascular congestion. Coarse interstitial markings are increased bilaterally, more prominent than on the prior study. No confluent consolidation and no significant effusion. There are scattered patchy hazy alveolar opacities in both lungs, which are also more prominent. IMPRESSION: Mild worsening of the chest when compared to prior exam. POS: AGW
[2020-09-11] MEDS: Ferrous Gluconate 324 MG TAB PO SCH (09:00)
[2020-09-11] MEDS ORDERED: Glimepiride 1 MG TAB PO SCH (09:00)
[2020-09-11] MEDS: Aspirin 81 mg Enteric Coated Tablet PO SCH (09:00)
[2020-09-11] MEDS ORDERED: Ferrous Gluconate 324 MG TAB PO SCH (09:00)
[2020-09-11] MEDS: Enoxaparin Sodium 120 MG/0.8 ML SYRINGE SC SCH ×2 (09:01→21:31)
[2020-09-11] MEDS ORDERED: REMDESIVIR IVPB PRN (09:21)
[2020-09-11 09:56] LABS: ALT (SGPT) 18 U/L (8-55); AST (SGOT) 20 U/L (5-34); Albumin 4.1 g/dL (3.4-4.8); Alkaline Phosphatase 122 U/L (40-110); Bilirubin, Direct 0.6 mg/dL (0.1-0.3); Bilirubin, Total 1.4 mg/dL (0.2-1.2); Protein, Total 8.1 g/dL (5.8-8.1)
[2020-09-11] MEDS: Lactated Ringer's 1,000 ML IV SCH ×2 (10:47→18:06)
[2020-09-11] MEDS ORDERED: REMDESIVIR (EUA) 200 MG in Sodium Chloride 0.9% 250 ML 210 ML IV SCH (11:00)
[2020-09-11] MEDS ORDERED: Amlodipine 5 MG TAB PO SCH (13:30)
--- NOTE | 2020-09-11 13:37 | PQF ---
CLINICAL DOCUMENTATION CLARIFICATION FORM: Dear Dr. Mcdermott Date: 09/11/20 Please exercise your independent, professional judgment in responding to the clarification form. Clinical indicators are provided on the bottom of this form for your review. Please check appropriate box(es): HEART FAILURE: A. ACUITY [ ] Acute [ ] Acute on Chronic [ X ] Chronic B. TYPE: [ ] Systolic / HFrEF [ ] Diastolic / HFpEF [ ] Combined Systolic / Diastolic [ ] Hypertensive Heart and Kidney disease [ ] Hypertensive Heart Disease [ ] Hypertensive Kidney Disease [ ] Other diagnosis [ X ] Unable to determine In addition, please specify: Present on Admission (POA): [ X ] Yes [ ] No [ ] Unable to determine For continuity of documentation, please document condition throughout progress notes and discharge summary. Thank You. To be completed by CDI/Coding staff for physician review: CLINICAL INDICATORS - SIGNS / SYMPTOMS / LABS / RESULTS AND LOCATION IN EMR PN 09/11 ([facility]): CHF- ECHO REPORT SHOWS EF 55-60% WITH CONCENTRIC HYPERTROPHY BUT NO MENTION OF DIASTOLIC DYSFUNCTION." "CXR RESULTS WITH FINDINGS C/W CHF." BNP 09/11: 1192.1 RISKS FACTORS / RESULTS AND LOCATION IN EMR H/O CHRONIC DIASTOLIC HEART FAILURE (CONSULT REPORT-[facility]) H/O HTN (CONSULT REPORT-[facility]) CKD 3 (CONSULT REPORT- [facility]) TREATMENTS / RESULTS AND LOCATION IN EMR [facility] (START 09/11) HOME CARVEDILOL HOLD BETA KENY AND CALCIUM CHANNEL KENY (CONSULT NOTE-[facility]) CARDIAC MONITORING CDS Signature: Ratna Obregon RN Phone #: [phone] Date: 09/11/20 This is a permanent part of the Medical Record [facility]
[2020-09-11] MEDS: Atorvastatin Calcium 20 MG TAB PO SCH (21:31)
[2020-09-12] MEDS: Lactated Ringer's 1,000 ML IV SCH ×2 (00:42→10:00)
[2020-09-12 05:51] LABS: Anion Gap 13 mmol/L (10-20); BUN (Urea Nitrogen) 55 mg/dL (9.8-20.1); Calc. Creatinine Clearance 65 mL/min (70-130); Calcium 8.7 mg/dL (7.8-10.44); Carbon Dioxide 23 mmol/L (23-31); Chloride 108 mmol/L (98-107); Glucose 122 mg/dL (83-110); Potassium 4.7 mmol/L (3.5-5.1); Sodium 139 mmol/L (136-145)
--- NOTE | 2020-09-12 06:23 | PDOC.FM ---
- Subjective Subjective: Ms. Pritchett says she is feeling well this morning. She denies CP, SOB. She reports her nurse turned her oxygen up a bit but she never felt any more short of breath. - Objective Vital Signs & Weight: Vital Signs (12 hours) Temp Pulse Ox 09/12/20 04:00 97.8 F 09/12/20 00:00 97.8 F 09/11/20 20:00 97 09/11/20 19:00 98.0 F 09/11/20 18:24 100 Weight Weight 121 kg Most Recent Monitor Data Heart Rate from ECG 32 NIBP 145/66 NIBP BP-Mean 92 Respiration from ECG 17 SpO2 98 I&O: 09/10/20 09/11/20 09/12/20 06:59 06:59 06:59 Intake Total 1189 4437 Output Total 750 1050 Balance 439 9507 Result Diagrams: 09/12/20 04:40 Phys Exam - Physical Examination Constitutional: NAD HEENT: moist MMs, sclera anicteric Neck: full ROM Respiratory: no wheezing, no rales, no rhonchi, clear to auscultation bilateral Cardiovascular: no significant murmur irregular rhythm, bradycardic Gastrointestinal: soft, non-tender Musculoskeletal: no edema Neurological: non-focal Psychiatric: normal affect, A&O x 3 Skin: no rash Dx/Plan - Plan Plan: This is a 70F with a hx of AFib who presented to the ED for symptomatic bradycardia. Symptomatic bradycardia - Weakness, lightheadedness on standing. No sxs while sitting - Cards, Dr. Simmons and Brandon, consulted. Appreciate recs * Th Lovenox * Dopamine drip * Started amlodipine 5mg daily * Pacemaker placement needed but covid + therefore will be postponed unless it becomes emergent. - Central line placed 09/10 for dopamine gtt - Hold home Coreg and Dilt - Ambulate with assist AFib - Hx of AFib. Present on admission with slow ventricular response - Hold home Coreg and Dilt - Cardiology consulted, as above - Dr. Taylor is her corrosion control fitter. Echo pending Covid PNA - Covid + in ED on 09/10 - New O2 requirement, on NC. Baseline is RA. * Suspect anxiety is contributing as she was satting well on RA in the ED prior to dx and precautions. Hydroxyzine prn. Can consider low-dose benzo if air hunger becomes an issue * IS-WA q2h for likely atelectasis component - ABG obtained on 09/10 with change in O2 requirement but pt was on 6L NC at the time. * Shows mild metabolic acidosis with appropriate resp compensation, per Winter's formula * A-a gradient shows V/Q mismatch likely 2/2 PNA - CXR shows mild increase in infiltrates + cardiomegaly + vascular congestion more c/w CHF than covid at this time - Started on Decadron (09/10), Remdesivir (09/11), and convalescent plasma (09/11) - Droplet precautions Indeterminate troponin - Trop 0.038 > 0.067 > 0.044 - Suspect demand 2/2 bradycardia - Cardiology consulted, as above CKD - BUN 55, Cr 1.5 - CrCl 50 - Monitor with am BMPs - Renally dose medications - Dr. aMrin is landfill gas collection operator - Started on LR 140mL/hr yesterday. Will D/C today as patient's kidney function is at baseline. T2DM - HH-LS/CC diet - hypoglycemia protocol; diabetes education - ACHS checks - A1c 6.2 - Mild and bedtime SSI given admin of steroids - Holding home glimepiride HTN - BP 160s/80s in ED > 132/60. Accuracy questionable given bradycardia - Consider placing art line for better measurements - Hold home Coreg - Monitor vitals CHF - Echo 2019 report shows EF 55-60% with concentric hypertrophy but no mention of diastolic dysf - CXR results, as above, with findings c/w CHF - BNP 680 on admission but >1100 this am but BUN 70 and dry on exam, therefore started LR at mIVF yesterday. D/C today as BUN is 55 which is patient's baseline. - Caution with fluid resuscitation throughout hospitalization - Hold home lasix for now Hx DVT - DVT in R femoral vein, per pt. Was on Eliquis but became cost-prohibitive - Lovenox per [place] recs OA - Can consult PT for eval and change activity after improvement of bradycardia Dispo: Management of bradycardia per cardiology recs. Pacemaker pending d/c of covid precautions, unless need becomes emergent. IVF: SL Diet: Clear liquid DVT Ppx: Lovenox 120mg BID GI Ppx: not indicated PCP: Rajesh Code: Full
[2020-09-12] MEDS: DOPamine 400 MG/D5W 250 ML 250 ML IVPB SCH ×2 (08:40→19:28)
[2020-09-12] MEDS: Dexamethasone 4 mg/ml Vial SLOW IVP SCH (08:40)
[2020-09-12] MEDS: Enoxaparin Sodium 120 MG/0.8 ML SYRINGE SC SCH ×2 (08:40→21:03)
[2020-09-12] MEDS: Ferrous Gluconate 324 MG TAB PO SCH (08:41)
[2020-09-12] MEDS: Amlodipine 5 MG TAB PO SCH (08:43)
[2020-09-12] MEDS: Aspirin 81 mg Enteric Coated Tablet PO SCH (08:43)
[2020-09-12] MEDS: REMDESIVIR (EUA) 100 MG in Sodium Chloride 0.9% 250 ML 230 ML IV SCH (11:26)
--- NOTE | 2020-09-12 11:41 | PRG ---
DATE OF SERVICE: 09/12/2020 Please see the note from Dr. Palomo, for which I agree. The patient was seen, evaluated, discussed and examined with the residents by bedside. Here for bradycardia and her pulse rate with the dopamine has been in the 40s and relatively asymptomatic. Has longstanding atrial fibrillation. Was incidentally found to have COVID, although she has absolutely no symptoms basically and I guess the question with Cardiology is could the COVID actually be causing the bradycardia somehow with the heart muscle, etc. So, we are monitoring her plasma infusion and is on Decadron and remdesivir and eventually may need a pacemaker placed if her pulse rate will not increase on her own. Exam is completely benign other than the bradycardia. Job ID: [id number]
--- NOTE | 2020-09-12 12:57 | CON ---
DATE OF CONSULTATION: 09/12/2020 REQUESTING PHYSICIAN: Dr. Torres. HISTORY OF PRESENT ILLNESS: This is a 70-year-old woman with previous history of chronic atrial fibrillation, essential hypertension, type 2 diabetes mellitus, and previous lower extremity DVT. The patient was seen in emergency department on 09/10/2020, complaining of lightheadedness and generalized fatigue. She was found with profound bradycardia with heart rate in the upper 20s to low 30s. By the patient's account, she has remained with bradycardia approximately 4 to 5 days prior to this admission. She denies any chest pain or dyspnea. She is currently on dopamine at 5 mcg/kg/minute to achieve a heart rate in the mid 40s. Blood pressure is acceptable at 155/64. She occasionally had been treated with amlodipine 5 mg for hypertension when her blood pressure was elevated. She is currently awake and alert. She is on FiO2 of 5 L by nasal cannula oxygen and reports no dyspnea. She tolerates oral intake. Urinary output has remained adequate for her age and weight. PAST MEDICAL HISTORY: Pertinent for type 2 diabetes mellitus, essential hypertension, chronic atrial fibrillation, hyperlipidemia, previous DVT, chronic diastolic heart failure. Her ejection fraction on echocardiography was 55% to 60% in 2019. PAST SURGICAL HISTORY: Pertinent for tracheostomy in 2011. SOCIAL HISTORY: She lives independently. She denies any cigarette smoking, ethanol, or illicit drug abuse. FAMILY HISTORY: Noncontributory for this patient's age. ALLERGIES: SHE HAS NO KNOWN DRUG ALLERGIES. REVIEW OF SYSTEMS: Essentially unremarkable except as stated in past medical history and chief complaint. PHYSICAL EXAMINATION: GENERAL: This reveals a 70-year-old, pleasant, normally developed woman, who is otherwise coherent and interactive and appears stated age. The patient is alert and oriented x3. She appears to be in no acute distress at time of my evaluation. VITAL SIGNS: This morning include blood pressure 175/61, pulse is 44, respiratory rate is 20, maximum temperature in last 24 hours is 98.3 degrees Fahrenheit, oxygen saturation currently is 97% on 5 L by nasal cannula oxygen. HEENT: Pupils are equal, round, reactive to light and accommodation. She has no jugular venous distention noted. HEART: Reveals irregular rate and rhythm with a rate of 44 to 50 beats per minute. LUNGS: Reveals bibasilar rhonchi with a few expiratory wheezes. Breathing is otherwise regular and nonlabored. ABDOMEN: Soft, nontender, nondistended. NEUROLOGIC: Reveals no focal deficits present. LABORATORY FINDINGS: Today include metabolic profile; sodium 139; potassium 4.7; chloride is 108; bicarb is 23; BUN 55; creatinine is 1.50, it was 1.67 yesterday; glucose is 122. Note that, COVID-19 test which was obtained on admission was positive. MEDICATIONS: I have reviewed home medications, which include; 1. Eliquis 5 mg p.o. b.i.d., which is currently on hold. 2. Carvedilol 12.5 mg p.o. b.i.d. 3. Diltiazem 60 mg p.o. t.i.d., both are on hold. Additionally, she takes; 1. Furosemide 40 mg p.o. daily. 2. Aspirin 81 mg p.o. daily. 3. Atorvastatin 20 mg p.o. at bedtime. 4. Ferrous sulfate 240 mg p.o. daily. 5. Glimepiride 1 mg p.o. daily. Currently, she is on; 1. Remdesivir. 2. Dexamethasone 6 mg IV daily. 3. Ferrous sulfate 324 mg p.o. daily. 4. Enoxaparin 120 mg subcutaneously twice daily. 5. Dopamine tapering dose of 5 mcg/kg/minute. IMPRESSION: 1. Acute pulmonary insufficiency secondary to COVID-19 pneumonitis. 2. Acute bradycardia with a history of chronic atrial fibrillation. 3. Current cardiac arrhythmias likely related to the COVID-19. 4. History of venous thromboembolism. RECOMMENDATIONS AND PLAN: 1. Continue with chronotropic and inotropic support with dopamine while the patient is being treated for the COVID-19. 2. She ultimately will need a pacemaker insertion per Cardiology. 3. Continue with full anticoagulation with enoxaparin due to this patient's history of venous thromboembolism, which is now complicated by additional risk of COVID- 19. 4. Increase activity per Physical and Occupational Therapy. 5. Above findings and plan discussed with the patient, who indicates understanding information provided and I have answered her questions. Thank you again, Dr. Torres, for allowing me the opportunity to participate in the care of this patient. Job ID: [id number] MTDD
[2020-09-12] MEDS: HumaLOG 300 UNITS/3 ML VIAL SC PRN ×2 (16:29→21:09)
[2020-09-12] MEDS: Atorvastatin Calcium 20 MG TAB PO SCH (21:03)
[2020-09-13 03:33] LABS: Anion Gap 14 mmol/L (10-20); BUN (Urea Nitrogen) 72 mg/dL (9.8-20.1); Calc. Creatinine Clearance 61 mL/min (70-130); Calcium 9.1 mg/dL (7.8-10.44); Carbon Dioxide 21 mmol/L (23-31); Chloride 106 mmol/L (98-107); Glucose 182 mg/dL (83-110); Sodium 136 mmol/L (136-145)
[2020-09-13] MEDS: DOPamine 400 MG/D5W 250 ML 250 ML IVPB SCH (05:21)
[2020-09-13] MEDS: HumaLOG 300 UNITS/3 ML VIAL SC PRN ×4 (06:11→23:50)
--- NOTE | 2020-09-13 06:39 | PDOC.FM ---
- Subjective Subjective: Ms. Pritchett is doing well this morning. She denies lightheadedness, CP, SOB or palpitations. She wishes she was allowed to get up and walk around. - Objective Vital Signs & Weight: Vital Signs (12 hours) Temp Pulse Ox 09/13/20 04:00 97.8 F 09/13/20 00:00 98.0 F 09/12/20 20:00 98.3 F 98 Weight Weight 121 kg Most Recent Monitor Data Heart Rate from ECG 34 NIBP 168/71 NIBP BP-Mean 103 Respiration from ECG 20 SpO2 99 I&O: 09/11/20 09/12/20 09/13/20 06:59 06:59 06:59 Intake Total 1189 4437 1966 Output Total 750 1050 1300 Balance 439 3387 666 Result Diagrams: 09/13/20 03:00 Phys Exam - Physical Examination Constitutional: NAD HEENT: moist MMs, sclera anicteric Neck: full ROM Respiratory: no wheezing, no rales, no rhonchi, clear to auscultation bilateral Cardiovascular: no significant murmur irregular rhythm Gastrointestinal: soft, non-tender Musculoskeletal: no edema, pulses present Neurological: moves all 4 limbs Psychiatric: normal affect, A&O x 3 Skin: no rash Dx/Plan - Plan Plan: This is a 70F with a hx of AFib who presented to the ED for symptomatic bradycardia. Symptomatic bradycardia - Weakness, lightheadedness on standing. No sxs while sitting - Cards, Dr. Simmons and Brandon, consulted. Appreciate recs * Th Lovenox * Dopamine drip * Started amlodipine 5mg daily, consider adding nitrates if BP continues to be elevated while on dopamine drip * Pacemaker placement needed but covid + therefore will be postponed unless it becomes emergent. - Central line placed 09/10 for dopamine gtt - Hold home Coreg and Dilt - Ambulate with assist AFib - Hx of AFib. Present on admission with slow ventricular response - Hold home Coreg and Dilt - Cardiology consulted, as above - Dr. Taylor is her shift superintendent. Echo pending Covid PNA - Covid + in ED on 09/10 - O2 requirement: 99% @ 3L. Baseline is RA. * Suspect anxiety is contributing as she was satting well on RA in the ED prior to dx and precautions. Hydroxyzine prn. Can consider low-dose benzo if air hunger becomes an issue * IS-WA q2h for likely atelectasis component - ABG obtained on 09/10 with change in O2 requirement but pt was on 6L NC at the time. * Shows mild metabolic acidosis with appropriate resp compensation, per Winter's formula * A-a gradient shows V/Q mismatch likely 2/2 PNA - CXR shows mild increase in infiltrates + cardiomegaly + vascular congestion more c/w CHF than covid at this time - Started on Decadron (09/10), Remdesivir (09/11), and convalescent plasma (09/11) - Droplet precautions Indeterminate troponin - Trop 0.038 > 0.067 > 0.044 - Suspect demand 2/2 bradycardia - Cardiology consulted, as above CKD - BUN 55, Cr 1.5 - CrCl 50 - Monitor with am BMPs - Renally dose medications - Dr. Marin is heating and cooling systems engineer T2DM - HH-LS/CC diet - hypoglycemia protocol; diabetes education - ACHS checks - A1c 6.2 - Mild and bedtime SSI given admin of steroids - Holding home glimepiride HTN - BPs 160s/70s, started on amlodipine 5mg yesterday. Consider nitrates if BP continues to be elevated. - Hold home Coreg - Monitor vitals CHF - Echo 2019 report shows EF 55-60% with concentric hypertrophy but no mention of diastolic dysf - CXR results, as above, with findings c/w CHF - BNP 680 on admission but >1100 this am but BUN 70 and dry on exam, therefore started LR at mIVF yesterday. D/C today as BUN is 55 which is patient's baseline. - Caution with fluid resuscitation throughout hospitalization - Hold home lasix for now Hx DVT - DVT in R femoral vein, per pt. Was on Eliquis but became cost-prohibitive - Th Lovenox per [place] recs OA - Can consult PT for eval and change activity after improvement of bradycardia Dispo: Management of bradycardia per cardiology recs. Pacemaker pending d/c of covid precautions, unless need becomes emergent. IVF: SL Diet: Clear liquid DVT Ppx: Lovenox 120mg BID GI Ppx: not indicated PCP: Rajesh Code: Full
[2020-09-13] MEDS: Amlodipine 5 MG TAB PO SCH (08:12)
[2020-09-13] MEDS: Enoxaparin Sodium 120 MG/0.8 ML SYRINGE SC SCH ×2 (08:13→20:54)
[2020-09-13] MEDS: Dexamethasone 4 mg/ml Vial SLOW IVP SCH (08:13)
[2020-09-13] MEDS: Aspirin 81 mg Enteric Coated Tablet PO SCH (08:13)
[2020-09-13] MEDS: Ferrous Gluconate 324 MG TAB PO SCH (08:30)
[2020-09-13] MEDS: REMDESIVIR (EUA) 100 MG in Sodium Chloride 0.9% 250 ML 230 ML IV SCH (10:58)
--- NOTE | 2020-09-13 12:10 | PRG ---
DATE OF SERVICE: 09/13/2020 Please see the note from Dr. Pino Palomo, for which I agree. The patient was seen, evaluated, discussed, and examined with the residents by bedside. Still bradycardic. So, atrial fibrillation slow with adenike. Relatively asymptomatic from her COVID standpoint, doing fine on 3 L, 99%. Blood pressure has been a little bit up and sounds like Cardiology was debating adding nitrates, but was better this morning. Otherwise, everything else seems to be pretty stable. Her lungs sound good. Breathing comfortably. So, waiting on Cardiology to determine if and when a pacemaker will be placed. Job ID: [id number]
--- NOTE | 2020-09-13 12:27 | PRG ---
DATE OF SERVICE: 09/13/2020 SUBJECTIVE: Ms. Pritchett is a 70-year-old woman with previous history of chronic atrial fibrillation, type 2 diabetes mellitus, essential hypertension, and lower extremity DVT. She was admitted on 09/10/2020 and found with a low heart rate in upper 20s to low 30s. Apparently, the patient had a sustained bradycardia up to 5 days prior to her admission. Additional workup here revealed the patient with COVID-19 pneumonia. Appropriate therapeutic intervention has been directed to COVID-19 pneumonia with associated hypoxemia. Currently, the patient is on dopamine at 5 mcg/kg/minute. The patient is tolerating diet and is having adequate urinary output for her age and weight. OBJECTIVE: VITAL SIGNS: This morning include blood pressure 150/66, pulse is 42, respiratory rate is 17, maximum temperature in the last 24 hours is 98.3 degrees Fahrenheit, oxygen saturation remained stable at 97% on 3 Khloe by nasal cannula oxygen. The patient denies any chest pain or syncope. HEENT: Pupils are equal, round, reactive to light and accommodation. She has no jugular venous distention noted. HEART: Reveals irregular rate and irregular rhythm with a heart rate, which hovers between 34 and 47 beats per minute. LUNGS: Reveal scattered rhonchi with few expiratory wheezes present. Breathing is otherwise regular and nonlabored. ABDOMEN: Soft, nontender, and nondistended. NEUROLOGIC: Reveals no focal deficits present. EXTREMITIES: Reveal 2+ radial and pedal pulses bilaterally. Without any ankle edema present. LABORATORY FINDINGS: Today include metabolic profile; sodium 136, potassium 5.0, chloride is 106, bicarb 21, BUN is 72, creatinine is 1.58, which is her baseline. Glucose is 182. IMPRESSION: 1. Acute COVID-19 pneumonia. 2. Acute hypoxemic respiratory failure secondary to #1. 3. Chronic atrial fibrillation, now with bradycardia, likely a complication of her COVID-19. 4. Stage 3 kidney disease at baseline. PLAN: 1. Continue with noninvasive ventilator support. Currently, the patient requires only the 3 Khloe nasal cannula oxygen. We will give consideration to additional support if indicated. 2. Discussed with Cardiology. We will start the patient on isoproterenol and titrate this to heart rate of 50 or better as the dopamine appears to make the patient hypertensive. 3. Once the patient's heart rate stabilizes at 50, we will initiate activity per Physical and Occupational Therapy. 4. Above findings and plan has been discussed with the patient, who indicates understanding information provided. 5. Ultimately, the patient will need a pacemaker when the Cardiology deems is appropriate. Job ID: [id number] MTDD
[2020-09-13] MEDS: Isoproterenol 2 MG in Dextrose 5% in Water 500 ML IVPB SCH ×3 (12:33→23:59)
[2020-09-13] MEDS: Atorvastatin Calcium 20 MG TAB PO SCH (20:54)
[2020-09-14] MEDS ORDERED: REMDESIVIR 100 MG ONE (10:47)
[2020-09-14] MEDS ORDERED: Amlodipine 10 MG TAB ONE (10:47)
[2020-09-14] MEDS ORDERED: Aspirin 81 mg Enteric Coated Tablet ONE (10:47)
[2020-09-14] MEDS ORDERED: Dexamethasone 4 mg/ml Vial ONE (10:47)
[2020-09-14] MEDS ORDERED: Enoxaparin Sodium 120 MG/0.8 ML SYRINGE SC ONE (10:47)
[2020-09-14] MEDS ORDERED: Ferrous Gluconate 324 MG TAB ONE (10:47)
[2020-09-14] MEDS: Amlodipine 5 MG TAB PO SCH (15:34)
[2020-09-14] MEDS: Enoxaparin Sodium 120 MG/0.8 ML SYRINGE SC SCH ×2 (15:35→20:00)
[2020-09-14] MEDS: Ferrous Gluconate 324 MG TAB PO SCH (15:35)
[2020-09-14] MEDS: Aspirin 81 mg Enteric Coated Tablet PO SCH (15:35)
[2020-09-14] MEDS: Dexamethasone 4 mg/ml Vial SLOW IVP SCH (15:35)
[2020-09-14] MEDS: REMDESIVIR (EUA) 100 MG in Sodium Chloride 0.9% 250 ML 230 ML IV SCH (15:35)
[2020-09-14 15:40] LABS: Anion Gap 14 mmol/L (10-20); BUN (Urea Nitrogen) 82 mg/dL (9.8-20.1); Calc. Creatinine Clearance 54 mL/min (70-130); Calcium 8.2 mg/dL (7.8-10.44); Carbon Dioxide 19 mmol/L (23-31); Chloride 103 mmol/L (98-107); Potassium 4.4 mmol/L (3.5-5.1); Sodium 132 mmol/L (136-145)
[2020-09-14 15:41] LABS: Glucose 225 mg/dL (83-110)
[2020-09-14] MEDS: HumaLOG 300 UNITS/3 ML VIAL SC PRN ×2 (17:57→23:20)
--- NOTE | 2020-09-14 18:03 | PDOC.BPN ---
- Brief Progress Note Encounter Date: 09/14/20 Encounter Time: 18:00 This is a brief progress note for 09/14/20. Ms. Pritchett is stable on 2L NC, with SpO2 in the mid-90s. Dopamine gtt d/c overnight. Only on Isoproterenol 5mcg/min, currently. Will continue to follow with cards, Dr. Taylor's, recs. An order was placed for PT to evaluate her strength. Goal is to get her out of bed more. Plan is to schedule OOB orders. BUN now 28, down from 70 on admission. Still on IVF and tolerating PO diet. Mucosa dry on exam. Continue with fluids. See paper note in chart for more details.
[2020-09-14] MEDS: Atorvastatin Calcium 20 MG TAB PO SCH (20:00)
[2020-09-14] MEDS: Isoproterenol 2 MG in Dextrose 5% in Water 500 ML IVPB SCH (23:21)
--- NOTE | 2020-09-15 05:53 | PDOC.FM ---
- Subjective Subjective: Ms. Pritchett is doing well this am and has no complaints. She continues to deny SOB, CP. PT was not able to work with her yesterday, so she has not gotten OOB yet. She continues to be on the Isoproterenol drip at 2mcg/min, 30mL/h. She continues to be in AFib with a HR in the 60s. - Objective Vital Signs & Weight: Vital Signs (12 hours) Temp 09/15/20 05:00 97.5 F L 09/15/20 04:00 97.6 F 09/15/20 03:00 97.8 F 09/15/20 02:00 97.8 F 09/15/20 01:00 97.5 F L 09/14/20 23:00 97.5 F L 09/14/20 19:00 97.8 F Weight Weight 121 kg Most Recent Monitor Data Heart Rate from ECG 59 NIBP 145/64 NIBP BP-Mean 91 Respiration from ECG 17 SpO2 98 I&O: 09/13/20 09/14/20 09/15/20 06:59 06:59 06:59 Intake Total 1966 1182 1396 Output Total 4515 417 3614 Balance 666 632 196 Result Diagrams: 09/14/20 03:00 Phys Exam - Physical Examination Constitutional: NAD Neck: supple, full ROM Respiratory: no wheezing, no rales, clear to auscultation bilateral Cardiovascular: no significant murmur Irregular rhythm. 61bpm Musculoskeletal: no edema, pulses present (2+ radial) Neurological: non-focal, moves all 4 limbs Psychiatric: normal affect, A&O x 3 Dx/Plan - Plan Plan: This is a 70F with a hx of AFib who presented to the ED for symptomatic bradycardia. Symptomatic bradycardia - Cards, Dr. Simmons and Brandon, consulted. Appreciate recs * Th Lovenox * Dopamine drip d/c on 09/14. * Isoproterenol gtt on at 2mcg/min. Attempting to wean per Dr. Taylor's recs. There is also an issue of the hospital being out of Isoproterenol so there's a possibility she will need to be switched back to a DA gtt. * Amlodipine increased from 5mg to 10mg. Expect better BP control now that she is off the DA gtt * Pacemaker placement needed but covid + therefore will be postponed unless it becomes emergent. - Central line placed 2/11 for dopamine gtt - Hold home Coreg and Dilt - PT eval placed. Will place order for ambulation once cleared to do so. AFib - Hx of AFib. Present on admission with slow ventricular response - Hold home Coreg and Dilt - Cardiology consulted, as above. Dr. Taylor is her laborer hide house. - Echo pending Covid PNA - Covid + in ED on 09/10 - O2 requirement: 90-97% @ 0.5L NC. SpO2 dependent on time between beats. Baseline is RA. * Hydroxyzine prn for anxiety * IS-WA q2h for likely atelectasis component - CXR shows mild increase in infiltrates + cardiomegaly + vascular congestion more c/w CHF than covid at this time - Started on Decadron (09/10), Remdesivir (09/11. Today will be dose /), and convalescent plasma (09/11) - Droplet precautions Indeterminate troponin - Trop 0.038 > 0.067 > 0.044 - Suspect demand 09/01 bradycardia - Cardiology consulted, as above CKD - BUN 55, Cr 1.5 - CrCl 50 - Monitor with am BMPs - Renally dose medications - Dr. Marin is manager of production T2DM - HH-LS/CC diet - hypoglycemia protocol; diabetes education - [facility] checks - A1c 6.2 - Mild and bedtime SSI given admin of steroids - Holding home glimepiride HTN - BPs 160s/70s, started on amlodipine 5mg yesterday. Consider nitrates if BP continues to be elevated. - Hold home Coreg - Monitor vitals CHF - Echo 2018 report shows EF 55-60% with concentric hypertrophy but no mention of diastolic dysf - CXR results, as above, with findings c/w CHF - BUN improving, mucosa less dry on exam, and pt eating/drinking well - Caution with fluid resuscitation throughout hospitalization - Hold home lasix for now Hx DVT - DVT in R femoral vein, per pt. Was on Eliquis but became cost-prohibitive - Lovenox per [place] recs OA - Can consult PT for eval and change activity after improvement of bradycardia Dispo: Management of bradycardia per cardiology recs. Pacemaker pending response of HR s/p d/c of Isoproterenol gtt. Drips: Isoproterenol 2mcg/min, 30mL/h. Being titrated down. IVF: SL Diet: HH-LS DVT Ppx: Lovenox 120mg BID GI Ppx: not indicated PCP: Rajesh Code: Full Addendum - Attending - Attending Attestation Date/Time: 09/15/20 7020 I personally evaluated the patient and discussed the management with the team. I agree with the History, Examination, Assessment and Plan documented above with any addition or exceptions noted below. Transition to dobutamine vs DA in light of limited supply of isoprot. Her O2 requirements continue to improve.
[2020-09-15] MEDS: HumaLOG 300 UNITS/3 ML VIAL SC PRN ×3 (06:37→23:08)
--- NOTE | 2020-09-15 09:09 | PRG ---
DATE OF SERVICE: 09/15/2020 SUBJECTIVE: The patient remains in the CCU for symptomatic bradycardia related to COVID-19 infection. She is currently on isoproterenol drip at 1 mg/minute. She has no complaints today. PHYSICAL EXAMINATION: VITAL SIGNS: Heart rates running from 60s to 72, blood pressure 169/76, O2 saturation 99%, respiratory rate 22. HEENT: Unremarkable. NECK: No adenopathy or JVD. LUNGS: Clear. CARDIAC: S1 and S2. Regular. ABDOMEN: Soft. Extremities: No edema. LABORATORY DATA: No new labs were done today, but yesterday, her sodium was 132, potassium 4.4, chloride 103, CO2 19, BUN 82, creatinine 1.7, glucose 225. ASSESSMENT: 1. Symptomatic bradycardia from COVID-19 infection. 2. Renal insufficiency. PLAN: 1. Wean off isoproterenol drip as tolerated. 2. Check labs tomorrow. Job ID: [id number]
[2020-09-15] MEDS: Dexamethasone 4 mg/ml Vial SLOW IVP SCH (09:40)
[2020-09-15] MEDS: Amlodipine 5 MG TAB PO SCH (09:40)
[2020-09-15] MEDS: Enoxaparin Sodium 120 MG/0.8 ML SYRINGE SC SCH ×2 (09:41→20:38)
[2020-09-15] MEDS: Aspirin 81 mg Enteric Coated Tablet PO SCH (09:41)
[2020-09-15] MEDS: Ferrous Gluconate 324 MG TAB PO SCH (09:41)
[2020-09-15] MEDS: REMDESIVIR (EUA) 100 MG in Sodium Chloride 0.9% 250 ML 230 ML IV SCH (11:22)
[2020-09-15] MEDS: DOBUTamine 500 mg/250 ml 500 MG in Premix Bag 1 BAG IVPB SCH ×2 (12:10→21:31)
[2020-09-15] MEDS: Atorvastatin Calcium 20 MG TAB PO SCH (20:39)
[2020-09-16 03:57] LABS: #Lymphocytes 0.8 thou/uL (1.20-3.40); #Monocytes 0.7 thou/uL (0.11-0.59); #Neutrophils 4.7 thou/uL (1.40-6.50); %Basophils 0.5 % (0.0-1.0); %Eosinophils 0.4 % (0.0-10.0); %Lymphocytes 12.8 % (21.0-51.0); %Monocytes 11.1 % (0.0-10.0); %Neutrophils 75.1 % (42.0-75.0); Hemoglobin 10.4 g/dL (12.0-16.0); Mean Corpuscular HGB CONC 34.4 g/dL (32.0-36.0); Mean Corpuscular Hemoglobin 32.2 pg (27.0-31.0); Mean Corpuscular Volume 93.5 fL (78.0-98.0); Mean Platelet Volume 8.7 fL (7.4-10.4); Platelet Count 146 thou/uL (130-400); Red Blood Cell (RBC) Count 3.25 mill/uL (4.20-5.40); White Blood Cell (WBC) Count 6.2 thou/uL (4.8-10.8)
[2020-09-16 04:19] LABS: Anion Gap 12 mmol/L (10-20); BUN (Urea Nitrogen) 77 mg/dL (9.8-20.1); Calc. Creatinine Clearance 68 mL/min (70-130); Calcium 8.5 mg/dL (7.8-10.44); Carbon Dioxide 23 mmol/L (23-31); Chloride 108 mmol/L (98-107); Glucose 150 mg/dL (83-110); Potassium 5.3 mmol/L (3.5-5.1); Sodium 138 mmol/L (136-145)
--- NOTE | 2020-09-16 06:00 | PDOC.FM ---
- Subjective Subjective: Ms. Pritchett is doing well this morning and has no complaints other than that she wants to get out of bed. She is currently on a dobutamine gtt at 1.5mcg/kg/min with a HR in 50s-60s. She continues to deny covid sxs. She is eager to get out of bed so she can use the restroom because the Naartjie has not worked for her and her bladder control isn't great so she keeps wetting herself before the nurse is able to come in and help her. She has recently had some blood pooling at the entrance of the central line and her nurse says she has been bleeding really easily with the lovenox she has been receiving. - Objective Vital Signs & Weight: Weight Weight 121 kg Most Recent Monitor Data Heart Rate from ECG 67 NIBP 144/57 NIBP BP-Mean 62 Respiration from ECG 17 SpO2 96 I&O: 09/14/20 09/15/20 09/16/20 06:59 06:59 06:59 Intake Total 1182 1396 435 Output Total 550 1200 850 Balance 632 196 -415 Result Diagrams: 09/16/20 03:40 09/16/20 13:15 Phys Exam - Physical Examination Constitutional: NAD Neck: supple, full ROM Respiratory: no rales, clear to auscultation bilateral Cardiovascular: no significant murmur Irregular rhythm. HR 54 on palpation. Musculoskeletal: no edema Neurological: non-focal, moves all 4 limbs Psychiatric: normal affect, A&O x 3 -: Has blood pooling around the entrance of the central line Dx/Plan - Plan Plan: This is a 70F with a hx of AFib who presented to the ED for symptomatic bradycardia. Symptomatic bradycardia - Cards, Dr. Simmons and Brandon, consulted. Appreciate recs * Th Lovenox * Dopamine drip d/c on 09/14. Isoproterenol gtt d/c on 09/15. * Dobutamine gtt started at 2.5mcg/kg/min on 09/15, down to 1.5mcg/kg/min on 09/16 * Pacemaker placement needed but covid + therefore will be postponed unless it becomes emergent. - Central line placed 09/10 - Hold home Coreg and Dilt - PT eval and OOB-WA orders placed to encourage safe ambulation AFib - Hx of AFib. Present on admission with slow ventricular response - Hold home Coreg and Dilt - Cardiology consulted, as above. Dr. Taylor is her zipper ironer. Covid PNA - Covid + in ED on 09/10 - SpO2 in the low 90s on RA, without resp distress. Baseline is RA. - Hydroxyzine prn for anxiety - IS-WA q2h for likely atelectasis component - CXR shows mild increase in infiltrates + cardiomegaly + vascular congestion more c/w CHF than covid at this time - Started on Decadron 6mg (09/10), Remdesivir (09/11-09/15), and convalescent plasma (09/11) - Droplet precautions Hyperkalemia - K today is 5.3. Suspect this may be inaccurate as there is no reason for her to be hyperkalemic - Repeat BMP at noon today - If elevated, can consider restarting home lasix and/or increasing insulin admin since her BGs have room for more correction as she is receiving decadron Indeterminate troponin - Trop 0.038 > 0.067 > 0.044 - Suspect demand 09/01 bradycardia - Cardiology consulted, as above CKD - BUN 55, Cr 1.5 > BUN 77, Cr 1.42 - CrCl 50 > CrCl 68. Adjusted body weight CrCl 52 - Monitor with am BMPs - Renally dose medications - Dr. Marin is otr flatbed driver T2DM - HH-LS/CC diet - hypoglycemia protocol; diabetes education - [facility] checks - A1c 6.2 - Mild and bedtime SSI given admin of steroids - Holding home glimepiride HTN - SBP as high as 190s in past 24hrs but the nurse states when she went to check on the pt at that time her cuff was not on properly - Cards consulted, as above. Will manage BP per cards recs * Amlodipine 10mg - Consider nitrates if BP continues to be elevated. - Hold home Coreg - Monitor vitals CHF - Echo 2019 report shows EF 55-60% with concentric hypertrophy but no mention of diastolic dysf - CXR results, as above, with findings c/w CHF - pt eating/drinking well, BUN increasing - Caution with fluid resuscitation throughout hospitalization Hx DVT - DVT in R femoral vein, per pt. Was on Eliquis but became cost-prohibitive - Lovenox per [place] recs OA - Can consult PT for eval and change activity after improvement of bradycardia Dispo: Management of bradycardia per cardiology recs - attempting to wean off dobutamine and see if her HR maintains. Otherwise, will need pacemaker. Drips: Dobutamine 1.5mcg/kg/min IVF: SL Diet: HH-LS DVT Ppx: Lovenox 120mg BID GI Ppx: not indicated PCP: Rajesh Code: Full Addendum - Attending - Attending Attestation Date/Time: 09/16/20 8567 I personally evaluated the patient and discussed the management with the team. I agree with the History, Examination, Assessment and Plan documented above with any addition or exceptions noted below.
--- NOTE | 2020-09-16 09:16 | PRG ---
DATE OF SERVICE: 09/16/2020 SUBJECTIVE: The patient is doing fairly well. She is now on a dobutamine drip for heart rate at 1.5 mcg/kg/minute. OBJECTIVE: VITAL SIGNS: Her heart rates in the 60s, blood pressure 176/81, O2 saturation 94% on room air. HEENT: Unremarkable. NECK: No JVD. CHEST: Clear. CARDIAC: S1 and S2. Regular. ABDOMEN: Soft. EXTREMITIES: No edema. LABORATORY DATA: Sodium 138, potassium 5.3, chloride 108, CO2 of 23, BUN 77, creatinine 1.4, and glucose 115. White blood cell count 6.2, hematocrit 30, and platelet count 146. ASSESSMENT: 1. COVID-19 infection. 2. Symptomatic bradycardia. 3. Renal insufficiency with mild hyperkalemia. PLAN: The patient may need to be switched from enoxaparin to Arixtra if her potassium continues to be an issue. Need to check her chemistry daily. We will follow. Job ID: [id number]
[2020-09-16] MEDS: Enoxaparin Sodium 100 MG/ML SYRINGE SC SCH ×2 (10:16→19:54)
[2020-09-16] MEDS: Ferrous Gluconate 324 MG TAB PO SCH (10:16)
[2020-09-16] MEDS: Furosemide 40 MG TAB PO SCH (10:17)
[2020-09-16] MEDS: hydrALAZINE 25 MG TAB PO SCH ×3 (10:17→19:55)
[2020-09-16] MEDS: Amlodipine 5 MG TAB PO SCH (10:17)
[2020-09-16] MEDS: Dexamethasone 4 mg/ml Vial SLOW IVP SCH (10:17)
[2020-09-16] MEDS: Aspirin 81 mg Enteric Coated Tablet PO SCH (10:17)
[2020-09-16] MEDS: HumaLOG 300 UNITS/3 ML VIAL SC PRN ×3 (13:16→23:46)
[2020-09-16 13:55] LABS: Anion Gap 13 mmol/L (10-20); BUN (Urea Nitrogen) 70 mg/dL (9.8-20.1); Calc. Creatinine Clearance 67 mL/min (70-130); Calcium 8.7 mg/dL (7.8-10.44); Carbon Dioxide 23 mmol/L (23-31); Chloride 105 mmol/L (98-107); Glucose 170 mg/dL (83-110); Potassium 5.1 mmol/L (3.5-5.1); Sodium 136 mmol/L (136-145)
[2020-09-16] MEDS: Atorvastatin Calcium 20 MG TAB PO SCH (19:55)
[2020-09-17 04:28] LABS: Anion Gap 13 mmol/L (10-20); BUN (Urea Nitrogen) 78 mg/dL (9.8-20.1); Calc. Creatinine Clearance 67 mL/min (70-130); Calcium 8.7 mg/dL (7.8-10.44); Carbon Dioxide 24 mmol/L (23-31); Chloride 107 mmol/L (98-107); Glucose 217 mg/dL (83-110); Potassium 5.6 mmol/L (3.5-5.1); Sodium 138 mmol/L (136-145)
--- NOTE | 2020-09-17 05:45 | PDOC.FM ---
- Objective Vital Signs & Weight: Vital Signs (12 hours) Pulse BP 09/16/20 19:55 62 164/71 H Weight Weight 121 kg Most Recent Monitor Data Heart Rate from ECG 55 NIBP 122/74 NIBP BP-Mean 93 Respiration from ECG 17 SpO2 94 I&O: 09/15/20 09/16/20 09/17/20 06:59 06:59 06:59 Intake Total 1396 485 Output Total 1200 2050 900 Balance 196 -4245 -900 Result Diagrams: 09/16/20 03:40 09/17/20 04:00 Dx/Plan - Plan Plan: This is a 70F with a hx of AFib who presented to the ED for symptomatic bradycardia. Symptomatic bradycardia - Cards, Dr. Simmons and Brandon, consulted. Appreciate recs * Th Lovenox down to 100mg BID d/t easy bleeding. Pulm, Dr. Garcia, recommends considering switch from Lovenox to Fundaparinux, d/t hyperkalemia * Dobutamine gtt d/c on 09/16. HR maintaining in the 60s-70s * If HR holds, may not need pacemaker at this time - Central line placed 09/10 for drips. Removal will be per cards recs. - Hold home Coreg and Dilt - PT eval and OOB-WA orders placed to encourage safe ambulation. Pt requires use of walker at home and has required assistance in the hospital. - D/t d/c of drips and stability of pt, will be transferred to tele today AFib - Hx of AFib - Hold home Coreg and Dilt - Cardiology consulted, as above. Dr. Taylor is her chip frier. Covid PNA - Covid + in ED on 09/10 - SpO2 in the low 90s on RA, without resp distress. Baseline is RA. - Hydroxyzine prn for anxiety - IS-WA q2h for likely atelectasis component - Started on Decadron 6mg (09/10) - s/p Remdesivir and C. plasma - Droplet precautions Hyperkalemia - K 5.3 > 5.6 this am - Restarted home Lasix - Dr. Garcia suggested possible switch from Lovenox to Fondaparinux if this issue continues - am BMPs to monitor Indeterminate troponin - Trop 0.038 > 0.067 > 0.044 - Suspect demand 2/2 bradycardia - Cardiology consulted, as above CKD - BUN 55, Cr 1.5 > BUN 78, Cr 1.44 - CrCl 68. Adjusted body weight CrCl 52 - Monitor with am BMPs - Renally dose medications - Dr. Marin is rn delivery T2DM - A1c 6.2 but BGs remain elevated, likely 2/2 decadron - HH-LS/CC diet - hypoglycemia protocol; diabetes education - ACHS checks; mild and bedtime SSI - Holding home glimepiride HTN - SBP as high as upper 140s in past 24hrs - Cards consulted, as above. Will manage BP per cards recs * Amlodipine 10mg * Hydralazine 20mg TID started 09/16 - Hold home Coreg - Monitor vitals CHF - Echo 2019 report shows EF 55-60% with concentric hypertrophy but no mention of diastolic dysf - CXR results, as above, with findings c/w CHF - euvolemic on exam - Caution with fluid resuscitation throughout hospitalization Hx DVT - DVT in R femoral vein, per pt. Was on Eliquis but became cost-prohibitive - Th Lovenox per [place] recs OA - Can consult PT for eval and change activity after improvement of bradycardia Dispo: Transfer out of [facility] to tele today. Off all drips and HR currently maintaining in the upper 60s and 70s; management per cards recs. Pulm recs regarding anticoag and K. Drips: None IVF: SL Diet: HH-LS DVT Ppx: Lovenox 100mg BID GI Ppx: not indicated PCP: Rajesh Code: Full Addendum - Attending - Attending Attestation Date/Time: 09/17/20 6529 I personally evaluated the patient and discussed the management with Dr. Yves Wilson. I agree with the History, Examination, Assessment and Plan documented above with any addition or exceptions noted below.
[2020-09-17] MEDS: hydrALAZINE 25 MG TAB PO SCH ×3 (08:56→20:39)
[2020-09-17] MEDS: Aspirin 81 mg Enteric Coated Tablet PO SCH (08:56)
[2020-09-17] MEDS: Ferrous Gluconate 324 MG TAB PO SCH (08:57)
[2020-09-17] MEDS: Furosemide 40 MG TAB PO SCH (08:57)
[2020-09-17] MEDS: Amlodipine 5 MG TAB PO SCH (08:57)
[2020-09-17] MEDS: Dexamethasone 4 mg/ml Vial SLOW IVP SCH (08:57)
--- NOTE | 2020-09-17 09:09 | PRG ---
DATE OF SERVICE: 09/17/2020 SUBJECTIVE: Ms. Pritchett is doing better. She has been weaned off the dobutamine. She is scheduled to go to the floor later when a bed is found. OBJECTIVE: VITAL SIGNS: On exam, her pulse is 65, blood pressure 125/74, O2 saturation 93%. HEENT: Unremarkable. NECK: No JVD. CARDIAC: Rhythm is regular without murmur. LUNGS: Clear. ABDOMEN: Soft. EXTREMITIES: No edema. LABORATORY DATA: Notable for potassium level of 5.6, BUN 78, creatinine 1.4, and glucose 217. ASSESSMENT: 1. COVID-19 infection. 2. Status post symptomatic bradycardia. 3. History of complete kidney failure in the past, requiring dialysis. She says she has had issues with hyperkalemia in the past. PLAN: I will give her a dose of Kayexalate. Her potassium needs to be monitored very closely as she has had issues with this in the past. I would highly suggest Nephrology consultation given her history and the current findings that we see. Job ID: [id number]
[2020-09-17] MEDS: Fondaparinux Sodium 2.5 MG/0.5 ML SYRINGE SC SCH (10:17)
[2020-09-17 16:50] LABS: Anion Gap 15 mmol/L (10-20); BUN (Urea Nitrogen) 83 mg/dL (9.8-20.1); Calc. Creatinine Clearance 54 mL/min (70-130); Calcium 8.5 mg/dL (7.8-10.44); Carbon Dioxide 21 mmol/L (23-31); Chloride 106 mmol/L (98-107); Glucose 378 mg/dL (83-110); Potassium 5.3 mmol/L (3.5-5.1); Sodium 137 mmol/L (136-145)
[2020-09-17] MEDS: HumaLOG 300 UNITS/3 ML VIAL SC PRN ×2 (17:54→21:46)
[2020-09-17] MEDS: Atorvastatin Calcium 20 MG TAB PO SCH (20:39)
[2020-09-18 05:18] LABS: Anion Gap 12 mmol/L (10-20); BUN (Urea Nitrogen) 83 mg/dL (9.8-20.1); Calc. Creatinine Clearance 56 mL/min (70-130); Calcium 8.4 mg/dL (7.8-10.44); Carbon Dioxide 24 mmol/L (23-31); Chloride 106 mmol/L (98-107); Glucose 228 mg/dL (83-110); Potassium 4.8 mmol/L (3.5-5.1); Sodium 137 mmol/L (136-145)
[2020-09-18] MEDS ORDERED: HumaLOG 300 UNITS/3 ML VIAL SC PRN (06:01)
[2020-09-18] MEDS: Fondaparinux Sodium 2.5 MG/0.5 ML SYRINGE SC SCH (06:07)
--- NOTE | 2020-09-18 06:13 | PDOC.FM ---
- Subjective Subjective: Ms. Pritchett is doing well this morning. She continues to deny covid sxs. She is having pain from the hematoma on her posterior ULE that she has d/t anticoag injections. She is also endorsing polyuria and some dysuria. She has also only had 1 BM throughout her stay when she typically has one qod. PT came yesterday with a walker so she is able to be more independently mobile today. She has not read the pamphlets I provided about anticoag education for when she is out of the hospital. - Objective Vital Signs & Weight: Vital Signs (12 hours) Temp Pulse Resp BP BP Pulse Ox 09/18/20 05:25 98.5 F 75 18 145/67 H 93 L 09/17/20 20:39 62 164/71 H 09/17/20 20:34 98.7 F 88 20 154/73 H 96 Weight Weight 121 kg Most Recent Monitor Data Heart Rate from ECG 90 NIBP 141/89 NIBP BP-Mean 106 Respiration from ECG 24 SpO2 92 I&O: 09/16/20 09/17/20 09/18/20 06:59 06:59 06:59 Intake Total 485 800 932 Output Total 2050 2400 0 Balance -1565 -1600 932 Result Diagrams: 09/16/20 03:40 09/18/20 04:37 Phys Exam - Physical Examination Constitutional: NAD Neck: supple, full ROM Respiratory: no wheezing, clear to auscultation bilateral Cardiovascular: no significant murmur Irregular HR palpated at 70bpm Gastrointestinal: soft, no distention Tender and bruised at insulin/anticoag injection sites Mild non-pitting edema of BLE Neurological: non-focal, moves all 4 limbs Psychiatric: normal affect, A&O x 3 Skin: no rash Dx/Plan - Plan Plan: This is a 70F with a hx of AFib who presented to the ED for symptomatic bradycardia. Symptomatic bradycardia - Aretha, Dr. Simmons and Brandon, consulted. Appreciate recs * Switched from Lovenox to Fondaparinux, d/t hyperkalemia, see below - All drips d/c 09/16. If HR holds, may not require pacemaker, per cards - Central line placed 09/10 for drips. Removal will be per cards recs. - Hold home Coreg and Dilt - PT eval and OOB-WA orders placed to encourage safe ambulation. Pt requires use of walker at home and has required assistance in the hospital. She was a provided a walker so she feels comfortable ambulating now. AFib - Hx of AFib. Admitted to tele - Hold home Coreg and Dilt - Cardiology consulted, as above. Dr. Taylor is her bale breaker operator. - Per PCP, has been resistant to anticoag in the past. - Pt provided with education packets regarding different forms of anticoagulation and encouraged to speak with her insurance since Eliquis was previously cost-prohibitive. Will place CM order to help her enroll in Medicare Covid PNA - Covid + in ED on 09/10 - No O2 requirement or covid sxs - Hydroxyzine prn for anxiety - IS-WA q2h for likely atelectasis component - Started on Decadron 6mg (09/12-09/22) - Droplet precautions Hyperkalemia - K 5.3 > 5.6 > 4.8 this am s/p 2 doses of Kayexalate on 09/17 - Home Lasix - Switched from Lovenox to Fondaparinux but hospital stock low, therefore will switch to Eliquis today pending pt's decision regarding outpt anticoag - am BMPs to monitor Indeterminate troponin - Cardiology consulted, as above CKD - BUN 55, Cr 1.5 > BUN 83, Cr 1.75 - CrCl 68 > 56. Adjusted body weight CrCl 52 > 37 - Monitor with am BMPs - Renally dose medications - Renal function appears to be declining. Dr. Marin is physiology teacher. Will recommend OP f/u. Hx of T2DM A1c on arrival was 6.2 therefore technically pre-diabetic now - BGs remain elevated, likely 2/2 decadron - HH-LS/CC diet, although d/t food shortage in the hospital she will not be receiving tailored diets. Will cover with insulin as needed - hypoglycemia protocol; diabetes education - ACHS checks; mild SSI and bedtime SSI. Can escalate SSI to moderate if BGs continue to be elevated 2/2 steroids and diet - Restart home glimepiride for increased BG control while in the hospital. HTN - SBP in 140s-150s in past 24hrs - Cards consulted, as above. Will manage BP per cards recs * Amlodipine 10mg * Hydralazine 20mg TID started 09/16 - Hold home Coreg - Monitor vitals CHF - mild BLE edema on exam. Pt denies SOB/dyspnea. - Caution with fluid resuscitation throughout hospitalization - continue to monitor fluid status Hx DVT - DVT in R femoral vein, per pt. Completed Eliquis tx for this, per PCP - Lovenox > Fondaprinux > Eliquis, see above OA - Can consult PT for eval and change activity after improvement of bradycardia Dispo: In tele today. Off all drips and HR currently maintaining in the upper 60s and 70s; management per cards recs. Shared decision-making for anticoag for after d/c. Drips: None IVF: SL Diet: HH-LS DVT Ppx: Fondaparinux GI Ppx: not indicated PCP: Rajesh Code: Full
[2020-09-18] MEDS: HumaLOG 300 UNITS/3 ML VIAL SC PRN ×4 (06:20→20:34)
[2020-09-18] MEDS: Amlodipine 5 MG TAB PO SCH (08:20)
[2020-09-18] MEDS: hydrALAZINE 25 MG TAB PO SCH ×3 (08:20→20:31)
[2020-09-18] MEDS: Aspirin 81 mg Enteric Coated Tablet PO SCH (08:20)
[2020-09-18] MEDS: Dexamethasone 4 mg/ml Vial SLOW IVP SCH (08:21)
[2020-09-18] MEDS: Glimepiride 1 MG TAB PO SCH (08:21)
[2020-09-18] MEDS: Furosemide 40 MG TAB PO SCH (08:21)
[2020-09-18] MEDS: Ferrous Gluconate 324 MG TAB PO SCH (08:21)
[2020-09-18] MEDS ORDERED: Carvedilol 3.125 MG TAB PO SCH ×2 (10:00→17:00)
[2020-09-18] MEDS ORDERED: Carvedilol 6.25 MG TAB PO SCH (10:00)
[2020-09-18] MEDS: Polyethylene Glycol 3350 17 GM Packet PO SCH (11:35)
--- NOTE | 2020-09-18 12:32 | PRG ---
DATE OF SERVICE: 09/18/2020 Ms. Pritchett was admitted with asymptomatic bradycardia, which has since resolved. She was also treated for COVID illness and is making a good recovery. She is also having intermittent problems with hyperkalemia requiring doses of Kayexalate. We will continue to follow with Cardiology and intensive care team. Job ID: [id number]
[2020-09-18 13:53] LABS: Bacteria/HPF 3+ HPF (None Seen); Bilirubin Negative (Negative); Blood, Urine Negative (Negative); Clarity Clear (Clear); Glucose, Urine (Dipstick) 70 mg/dL (Negative); Ketone, Urine Negative (Negative); Leukocyte 75 Leu/uL (Negative); Nitrite Negative (Negative); Protein, Urine (Dipstick) 20 mg/dL (Neg-Trace); RBC/HPF 0-3 HPF (0-3); Specific Gravity, Urine 1.013 (1.002-1.036); Squamous Epithelial 0-3 HPF (0-3); Urobilinogen Normal mg/dL (Less than 2); WBC/HPF 21-50 HPF (0-3)
[2020-09-18 13:59] LABS: Urine Culture Reflex Yes Yes
[2020-09-18] MEDS: Carvedilol 3.125 MG TAB PO SCH (17:55)
[2020-09-18] MEDS: Atorvastatin Calcium 20 MG TAB PO SCH (20:31)
[2020-09-18] MEDS: Apixaban 2.5 MG TAB PO SCH (20:31)
--- NOTE | 2020-09-19 05:16 | PDOC.FM ---
- Objective Vital Signs & Weight: Vital Signs (12 hours) Temp Pulse Resp BP BP Pulse Ox 09/19/20 04:51 95 09/19/20 04:22 98.0 F 67 18 132/62 94 L 09/19/20 00:00 84 20 09/18/20 20:31 91 09/18/20 19:55 97.9 F 95 16 146/69 H 98 09/18/20 17:55 91 Weight Weight 121 kg Most Recent Monitor Data Heart Rate from ECG 90 NIBP 141/89 NIBP BP-Mean 106 Respiration from ECG 24 SpO2 92 I&O: 09/17/20 09/18/20 09/19/20 06:59 06:59 06:59 Intake Total 800 932 Output Total 2400 0 Balance -1600 932 Result Diagrams: 09/16/20 03:40 09/18/20 04:37 Dx/Plan - Plan Plan: This is a 70F with a hx of AFib who presented to the ED for symptomatic bradycardia. Symptomatic bradycardia - Cards, Dr. Simmons and Brandon, consulted. Appreciate recs * Switched from Lovenox to Fondaparinux, d/t hyperkalemia, see below - All drips d/c 09/16. If HR holds, may not require pacemaker, per cards - Central line placed 09/10 for drips. Removal will be per cards recs. - Hold home Coreg and Dilt - PT eval and OOB-WA orders placed to encourage safe ambulation. Pt requires use of walker at home and has required assistance in the hospital. She was a provided a walker so she feels comfortable ambulating now. AFib - Hx of AFib. Admitted to tele - Hold home Coreg and Dilt - Cardiology consulted, as above. Dr. Taylor is her quenching machine operator. - Per PCP, has been resistant to anticoag in the past. - Pt provided with education packets regarding different forms of anticoagulation and encouraged to speak with her insurance since Eliquis was previously cost-prohibitive. Will place CM order to help her enroll in Medicare Covid PNA - Covid + in ED on 09/10 - No O2 requirement or covid sxs - Hydroxyzine prn for anxiety - IS-WA q2h for likely atelectasis component - Started on Decadron 6mg (09/12-09/22) - Droplet precautions Hyperkalemia - K 5.3 > 5.6 > 4.8 this am s/p 2 doses of Kayexalate on 09/17 - Home Lasix - Switched from Lovenox to Fondaparinux but hospital stock low, therefore will switch to Eliquis today pending pt's decision regarding outpt anticoag - am BMPs to monitor Indeterminate troponin - Cardiology consulted, as above CKD - BUN 55, Cr 1.5 > BUN 83, Cr 1.75 - CrCl 68 > 56. Adjusted body weight CrCl 52 > 37 - Monitor with am BMPs - Renally dose medications - Renal function appears to be declining. Dr. Marin is wildlife conservation professor. Will recommend OP f/u. Hx of T2DM A1c on arrival was 6.2 therefore technically pre-diabetic now - BGs remain elevated, likely 2/2 decadron - HH-LS/CC diet, although d/t food shortage in the hospital she will not be receiving tailored diets. Will cover with insulin as needed - hypoglycemia protocol; diabetes education - ACHS checks; mild SSI and bedtime SSI. Can escalate SSI to moderate if BGs continue to be elevated 2/2 steroids and diet - Restart home glimepiride for increased BG control while in the hospital. HTN - SBP in 140s-150s in past 24hrs - Cards consulted, as above. Will manage BP per cards recs * Amlodipine 10mg * Hydralazine 20mg TID started 09/16 - Hold home Coreg - Monitor vitals CHF - mild BLE edema on exam. Pt denies SOB/dyspnea. - Caution with fluid resuscitation throughout hospitalization - continue to monitor fluid status Hx DVT - DVT in R femoral vein, per pt. Completed Eliquis tx for this, per PCP - Th Lovenox > Fondaprinux > Eliquis, see above OA - Can consult PT for eval and change activity after improvement of bradycardia Dispo: In tele today. Off all drips and HR currently maintaining in the upper 60s and 70s; management per cards recs. Shared decision-making for anticoag for after d/c. Drips: None IVF: SL Diet: HH-LS DVT Ppx: Fondaparinux GI Ppx: not indicated PCP: Rajesh Code: Full
--- NOTE | 2020-09-19 05:21 | PDOC.FM ---
- Subjective Subjective: Patient is resting comfortably in bed. She reports dysuria and urinary frequency. Denies chest pain, shortness of breath, cough, fever/chills. - Objective MAR Reviewed: Yes Vital Signs & Weight: Vital Signs (12 hours) Temp Pulse Resp BP BP Pulse Ox 09/19/20 04:51 95 09/19/20 04:22 98.0 F 67 18 132/62 94 L 09/19/20 00:00 84 20 09/18/20 20:31 91 09/18/20 19:55 97.9 F 95 16 146/69 H 98 09/18/20 17:55 91 Weight Weight 121 kg Most Recent Monitor Data Heart Rate from ECG 90 NIBP 141/89 NIBP BP-Mean 106 Respiration from ECG 24 SpO2 92 I&O: 09/17/20 09/18/20 09/19/20 06:59 06:59 06:59 Intake Total 800 932 Output Total 2400 0 Balance -1600 932 Result Diagrams: 09/19/20 12:00 09/19/20 04:56 Phys Exam - Physical Examination Constitutional: NAD HEENT: PERRLA, moist MMs Respiratory: no wheezing, clear to auscultation bilateral Cardiovascular: RRR, no significant murmur Gastrointestinal: soft, non-tender mild b/l nonpitting edema Neurological: non-focal, moves all 4 limbs Psychiatric: A&O x 3 Deviation from normal: tender and bruised at insulin/anticoagulation sites Dx/Plan - Plan Plan: This is a 70F with a hx of AFib who presented to the ED for symptomatic bradycardia. Symptomatic bradycardia - Cards, Dr. Simmons and Brandon, consulted. Appreciate recs * Switched to Eliquis 2.5mg BID,, will check platelets and consider increase to 5mg BID - All drips d/c 09/16. If HR holds, may not require pacemaker, per cards - Central line placed 09/10 for drips. Removal will be per cards recs. - Home Coreg resumed at lower dose (3.125 BID) on 09/18 - PT eval and OOB-WA orders placed to encourage safe ambulation. Pt requires use of walker at home and has required assistance in the hospital. She was a provided a walker so she feels comfortable ambulating now. AFib - Hx of AFib. Admitted to tele - Cardiology consulted, as above. Dr. Taylor is her catalyst operator chief. - taking coreg 3.125mg - home dilt held - Per PCP, has been resistant to anticoag in the past, considering warfarin - Pt provided with education packets regarding different forms of anticoagulation and encouraged to speak with her insurance since Eliquis was previously cost-prohibitive. Will place CM order to help her enroll in Medicare UTI Dysuria and frequency UA +, UCX >100 ecoli - started keflex (09/19) Covid PNA - Covid + in ED on 09/10 - No O2 requirement or covid sxs - Hydroxyzine prn for anxiety - IS-WA q2h for likely atelectasis component - Started on Decadron 6mg (09/12-09/22) - Droplet precautions Hyperkalemia - K 5.3 > 5.6 > 4.8, 4.8 this am s/p 2 doses of Kayexalate on 09/17 - Home Lasix - On Eliquis 2.5mg BID - am BMPs to monitor Indeterminate troponin - Cardiology consulted, as above CKD - BUN 55, Cr 1.5 > BUN 83, Cr 1.75 - CrCl 68 > 56. Adjusted body weight CrCl 52 > 37 - Monitor with am BMPs - Renally dose medications - Renal function appears to be declining. Dr. Marin is record press supervisor. Will recommend OP f/u. Hx of T2DM A1c on arrival was 6.2 therefore technically pre-diabetic now - BGs remain elevated, likely 2/2 decadron - HH-LS/CC diet, although d/t food shortage in the hospital she will not be receiving tailored diets. Will cover with insulin as needed - hypoglycemia protocol; diabetes education - ACHS checks; mild SSI and bedtime SSI. Can escalate SSI to moderate if BGs continue to be elevated 2/2 steroids and diet - Restarted home glimepiride for increased BG control while in the hospital. HTN - Cards consulted, as above. Will manage BP per cards recs * Amlodipine 10mg * Hydralazine 20mg TID started 09/16 * coreg 3.125 BID - Monitor vitals CHF - mild BLE edema on exam. Pt denies SOB/dyspnea. - Caution with fluid resuscitation throughout hospitalization - continue to monitor fluid status Hx DVT - DVT in R femoral vein, per pt. Completed Eliquis tx for this, per PCP - Th Lovenox > Fondaprinux > Eliquis, see above OA -PT/OT Dispo: In tele today. Off all drips and HR currently maintaining in the upper 60s and 70s; management per cards recs. Shared decision-making for anticoag for after d/c. Drips: None IVF: SL Diet: HH-LS DVT Ppx: Eliquis GI Ppx: not indicated PCP: Rajesh Code: Full Addendum - Attending - Attending Attestation Date/Time: 09/19/20 2271 I personally evaluated the patient and discussed the management with Dr. Atkinson. I agree with the History, Examination, Assessment and Plan documented above with any addition or exceptions noted below. Patient is feeling well. On no oxygen. Heart rate is stable. She is considering coumadin as she is unable to afford eliquis long-term. continue to follow cardiology recs. tolerating low dose carvedilol.
[2020-09-19 06:08] LABS: Anion Gap 12 mmol/L (10-20); BUN (Urea Nitrogen) 88 mg/dL (9.8-20.1); Calc. Creatinine Clearance 55 mL/min (70-130); Calcium 8.1 mg/dL (7.8-10.44); Carbon Dioxide 25 mmol/L (23-31); Chloride 107 mmol/L (98-107); Glucose 181 mg/dL (83-110); Potassium 4.8 mmol/L (3.5-5.1); Sodium 139 mmol/L (136-145)
[2020-09-19] MEDS: HumaLOG 300 UNITS/3 ML VIAL SC PRN ×4 (06:08→20:29)
[2020-09-19] MEDS: Polyethylene Glycol 3350 17 GM Packet PO SCH (07:44)
[2020-09-19] MEDS: Ferrous Gluconate 324 MG TAB PO SCH (07:45)
[2020-09-19] MEDS: Dexamethasone 4 mg/ml Vial SLOW IVP SCH (07:45)
[2020-09-19] MEDS: Aspirin 81 mg Enteric Coated Tablet PO SCH (07:45)
[2020-09-19] MEDS: Carvedilol 3.125 MG TAB PO SCH ×2 (07:45→15:44)
[2020-09-19] MEDS: Apixaban 2.5 MG TAB PO SCH ×2 (07:45→20:26)
[2020-09-19] MEDS: Furosemide 40 MG TAB PO SCH (07:45)
[2020-09-19] MEDS: hydrALAZINE 25 MG TAB PO SCH ×3 (07:45→20:26)
[2020-09-19] MEDS: Glimepiride 1 MG TAB PO SCH (07:46)
[2020-09-19] MEDS: Amlodipine 5 MG TAB PO SCH (07:46)
[2020-09-19] MEDS ORDERED: Cephalexin 250 MG CAP PO SCH (10:30)
[2020-09-19 12:11] LABS: #Lymphocytes 0.9 thou/uL (1.20-3.40); #Monocytes 0.4 thou/uL (0.11-0.59); #Neutrophils 8.1 thou/uL (1.40-6.50); %Eosinophils 0.3 % (0.0-10.0); %Lymphocytes 9.6 % (21.0-51.0); %Monocytes 3.8 % (0.0-10.0); %Neutrophils 86.2 % (42.0-75.0); Hemoglobin 8.6 g/dL (12.0-16.0); Mean Corpuscular HGB CONC 32.9 g/dL (32.0-36.0); Mean Corpuscular Hemoglobin 30.2 pg (27.0-31.0); Mean Corpuscular Volume 91.8 fL (78.0-98.0); Mean Platelet Volume 8.7 fL (7.4-10.4); Platelet Count 169 thou/uL (130-400); RBC Distribution Width 14.9 % (11.5-14.5); Red Blood Cell (RBC) Count 2.84 mill/uL (4.20-5.40); White Blood Cell (WBC) Count 9.4 thou/uL (4.8-10.8)
--- NOTE | 2020-09-19 12:24 | PDOC.BPN ---
- Brief Progress Note Encounter Date: 09/19/20 Encounter Time: 09:00 This is a transition of care note: Ms. Pritchett is a 70F with a notable hx of AFib and HTN. She checks her BP daily and found she could not get her HR above 40 in 4 days. The last two days she also started feeling lightheaded and weak on standing, so she went to the ED. On presentation, she was found to be in bradycardic AFib with an average pulse in the upper 20s and low 30s; she was asx at rest. Her home Coreg and Dilt were held and cardiology, Dr. Simmons then Dr. Taylor, were consulted. They opined she would likely benefit from a pacemaker but on her admission screening she was found to be Covid +. As a result of this, pacemaker placement would be delayed until outside of the contagion window, unless emergent placement were to become necessary. She was started on a dobutamine gtt but it caused elevation in her BPs so she was switched to an Isoproterenol gtt but there was not enough stocked in the hospital to continue her on it, so she was switched to a dobutamine gtt. Dr. Taylor wanted a gradual down-titration of the gtt to see if her HR would maintain in the normal range, at which point pacemaker placement could be avoided/delayed. She has been off all drips since 09/16 and her HR has maintained in the upper 60s and low 70s. On 09/17 she reportedly had an episode of RVR, so Dr. Taylor started her on a low Coreg dose, in addition to her home hydralazine and amlodipine which she has been receiving to control her BPs. She has been in AFib constantly and has a hx of R femoral DVT from 12/2018, but is not on anticoagulation. In speaking to her PCP, Dr. Mena, she said the pt has been resistant to anticoagulation in the past and that it took a lot of encouragement for the pt to agree to therapeutic anticoag s/p her DVT. She was on Eliquis for the appropriate duration of time to cover her for her DVT, but it became cost-prohibitive and the pt has been resistant to other anticoagulation since then. In discussing this with the pt, she is concerned about the cost of the anticoagulation stating that in a previous hospitalization she did not yet qualify for Medicare so she had to pay a lot out of pocket and the Eliquis was too expensive. Additionally, she seems overwhelmed by the topic stating "I don't really understand these things. I will leave this to my hall manager, Dr. Taylor, to decide. You guys are the doctors". I printed her pt-oriented information packets and consulted CM to see if we can help her set up Medicare as I think this would resolve the issue of the cost of Eliquis, which would be the more convenient option for her. Throughout her stay, the only covid sx she has had was a small O2 requirement the first 3 days of hospitalization. She lives home alone and ambulates independently with the occasional aid of a walker. She was initially placed on strict bedrest given her symptomatic bradycardia, but this has been advanced to free ambulation with a walker. Having been bedbound for several days, the pt felt she was weaker and PT was consulted to evaluate her. PT recommended rehab unless she were to show good improvement, at which point she could likely due with HH with PT. On 09/18, the pt was endorsing dysuria and polyuria, so a UA was ordered.
--- NOTE | 2020-09-19 12:54 | PDOC.CPN ---
- Subjective Date: 09/19/20 Time: 12:53 Interval history: Reviewed notes and tele. No overnight events. Rate remains stable. - Review of Systems General: reports: fatigue Cardiovascular: denies: chest pain, palpitation, edema, paroxysmal nocturnal dyspnea, orthopnea Gastrointestinal: denies: nausea, vomiting, diarrhea, constipation, abd pain, GI bleeding Musculoskeletal: denies: pain, tenderness, stiffness, swelling, arthritis/arthralgias Neurological: reports: weakness - Objective Allergies/Adverse Reactions: Allergies Allergy/AdvReac Type Severity Reaction Status Date / Time No Known Allergies Allergy Verified 10/18/19 12:13 Visit Medications: Current Medications Amlodipine Besylate (Amlodipine 5 Mg Tab) 10 mg PO DAILY [facility] Last Admin: 09/19/20 07:46 Dose: 10 mg Documented by: Apixaban (Apixaban 2.5 Mg Tab) 2.5 mg PO BID [facility] Last Admin: 09/19/20 07:45 Dose: 2.5 mg Documented by: Aspirin (Aspirin 81 Mg Enteric Coated Tablet) 81 mg PO DAILY [facility] Last Admin: 09/19/20 07:45 Dose: 81 mg Documented by: Atorvastatin Calcium (Atorvastatin Calcium 20 Mg Tab) 20 mg PO [facility] Last Admin: 09/18/20 20:31 Dose: 20 mg Documented by: Carvedilol (Carvedilol 3.125 Mg Tab) 3.125 mg PO BID[facility] Last Admin: 09/19/20 07:45 Dose: 3.125 mg Documented by: Cephalexin (Cephalexin 250 Mg Cap) 500 mg PO BID [facility] Dexamethasone (Dexamethasone 4 Mg/Ml Vial) 6 mg SLOW IVP DAILY [facility] Stop: 09/22/20 09:01 Last Admin: 09/19/20 07:45 Dose: 6 mg Documented by: Dextrose/Water (Dextrose 50% Abboject 50 Ml Syringe) 25 gm SLOW IVP PRN PRN PRN Reason: Hypoglycemia Ferrous Gluconate (Ferrous Gluconate 324 Mg Tab) 324 mg PO DAILY [facility] Last Admin: 09/19/20 07:45 Dose: 324 mg Documented by: Furosemide (Furosemide 40 Mg Tab) 40 mg PO DAILY [facility] Last Admin: 09/19/20 07:45 Dose: 40 mg Documented by: Glimepiride (Glimepiride 1 Mg Tab) 1 mg PO QAM-[facility] Last Admin: 09/19/20 07:46 Dose: 1 mg Documented by: Glucagon (Glucagon 1 Mg/Ml Vial) 1 mg IM PRN PRN PRN Reason: Hypoglycemia Hydralazine HCl (Hydralazine 25 Mg Tab) 25 mg PO TID [facility] Last Admin: 09/19/20 07:45 Dose: 25 mg Documented by: Hydroxyzine HCl (Hydroxyzine 25 Mg Tab) 25 mg PO Q4H PRN PRN Reason: Anxiety Dextrose/Water (D5w) 1,000 mls @ 0 mls/hr IV .Q0M PRN PRN Reason: Hypoglycemia Insulin Human Lispro (Humalog 300 Units/3 Ml Vial) 0 units SC .BEDTIME SLIDING SC PRN PRN Reason: Bedtime Correctional Scale Last Admin: 09/18/20 20:34 Dose: 3 unit Documented by: Insulin Human Lispro (Humalog 300 Units/3 Ml Vial) 0 units SC .MILD SLIDING SCALE PRN PRN Reason: Mild Correctional Scale Last Admin: 09/19/20 11:43 Dose: 2 unit Documented by: Melatonin (Melatonin 3 Mg Tab) 3 mg PO HS PRN PRN Reason: Insomnia Polyethylene Glycol (Polyethylene Glycol 3350 17 Gm Packet) 17 gm PO DAILY [facility] Last Admin: 09/19/20 07:44 Dose: 17 gm Documented by: Sodium Chloride (Flush - Normal Saline 10 Ml Syringe) 10 ml IVF PRN PRN PRN Reason: Saline Flush Vital Signs & Weight: Vital Signs Temp Pulse Resp BP Pulse Ox 09/19/20 11:36 98.0 F 84 20 155/65 H 96 09/19/20 08:00 98.1 F 81 19 129/91 H 98 09/19/20 07:46 67 09/19/20 07:45 67 09/19/20 04:51 95 09/19/20 04:22 98.0 F 67 18 132/62 94 L Weight 266 lb 12.149 oz - Physical Exam General: appears well, no apparent distress HEENT: mucus membranes moist Neck: supple neck Cardiac: other (IRR IRR) Neuro: grossly intact Abdomen: soft - Labs Result Diagrams: 09/19/20 12:00 09/19/20 04:56 Troponin/CKMB Troponin I 0.044 ng/mL (< 0.028) H 09/10/20 15:39 - Assessment/Plan Assessment/Plan: 1. COVID 2. Bradycardia 3. Chronic AF 4. HTN 5. Hx DVT 6. Anemia Rhythm stable at this time. Continue hold bblocker and CCB. Eliquis at non- therapeutic dose, but will recheck H/H in AM before increasing to therpeutic dosing.
--- NOTE | 2020-09-19 16:51 | EKG ---
Test Reason : Blood Pressure : / mmHG Vent. Rate : 030 BPM Atrial Rate : 024 BPM P-R Int : 000 ms QRS Dur : 090 ms QT Int : 590 ms P-R-T Axes : 000 -16 038 degrees QTc Int : 416 ms Atrial fibrillation with slow ventricular response Abnormal ECG Confirmed by OCTAVIA WINSLOW, NEERU ([id number]), editor farm journal SABINA GOLDBERG ([id number]) on 09/19/2020 4:51:27 PM Referred By: Confirmed By:NEERU DUDLEY MD
[2020-09-19] MEDS: Cephalexin 250 MG CAP PO SCH (20:25)
[2020-09-19] MEDS: Atorvastatin Calcium 20 MG TAB PO SCH (20:27)
[2020-09-20 05:09] LABS: Hemoglobin 7.9 g/dL (12.0-16.0)
[2020-09-20 05:35] LABS: Anion Gap 16 mmol/L (10-20); BUN (Urea Nitrogen) 90 mg/dL (9.8-20.1); Calc. Creatinine Clearance 59 mL/min (70-130); Calcium 8.3 mg/dL (7.8-10.44); Carbon Dioxide 21 mmol/L (23-31); Chloride 105 mmol/L (98-107); Glucose 140 mg/dL (83-110); Potassium 4.6 mmol/L (3.5-5.1); Sodium 137 mmol/L (136-145)
--- NOTE | 2020-09-20 05:39 | PDOC.FM ---
- Subjective Subjective: Patient is sitting up in the chair, resting comfortably. She states that her strength is improving. Her morning Hgb was 7.9. She denies weakness, light- headed, short of breath, CP, blood in her stools, dark stool. On tele she had a few 1-2 second runs of Afib with RVR overnight 3x. She was asx during these. - Objective MAR Reviewed: Yes Vital Signs & Weight: Vital Signs (12 hours) Temp Pulse Resp BP Pulse Ox 09/20/20 04:28 98 09/20/20 04:00 97.5 F L 73 20 140/71 96 09/19/20 20:30 97.9 F 109 H 22 H 166/76 H 98 09/19/20 20:26 62 Weight Weight 121 kg Most Recent Monitor Data Heart Rate from ECG 90 NIBP 141/89 NIBP BP-Mean 106 Respiration from ECG 24 SpO2 92 I&O: 09/18/20 09/19/20 09/20/20 06:59 06:59 06:59 Intake Total 932 Output Total 0 Balance 932 Result Diagrams: 09/20/20 04:38 09/20/20 04:38 Phys Exam - Physical Examination Constitutional: NAD HEENT: PERRLA, moist MMs Respiratory: no wheezing, clear to auscultation bilateral Cardiovascular: RRR, no significant murmur Gastrointestinal: soft, non-tender trace nonpitting edema b/l Neurological: non-focal, moves all 4 limbs Psychiatric: A&O x 3 Dx/Plan - Plan Plan: This is a 70F with a hx of AFib who presented to the ED for symptomatic court ycardia. Symptomatic bradycardia - Aretha, Dr. Simmons and Brandon, consulted. Appreciate recs * Switched to Eliquis 2.5mg BID,, will check platelets and consider increase to 5mg BID - All drips d/c 09/16. If HR holds, may not require pacemaker, per cards - Central line placed 09/10 for drips. Removal will be per cards recs. - Home Coreg resumed at lower dose (3.125 BID) on 09/18 - PT eval and OOB-WA orders placed to encourage safe ambulation. Pt requires use of walker at home and has required assistance in the hospital. She was a provided a walker so she feels comfortable ambulating now. AFib - Hx of AFib. Admitted to tele - Cardiology consulted, as above. 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 - taking coreg 3.125mg - home dilt held - Per PCP, has been resistant to anticoag in the past, considering warfarin outpatient - will hold Michael muñoz 2/2 acute anemia - Pt provided with education packets regarding different forms of anticoagula tion and encouraged to speak with her insurance since Eliquis was previously cost-prohibitive. Will place CM order to help her enroll in Medicare Acute on Chronic Anemia Hgb 10.4 > 7.9 Asx - ordered FOBT - ordered ferritin, TIBC, B12, folate - repeat H/H this afternoon - consider GI consult UTI Dysuria and frequency UA +, UCX >100 ecoli, sensitive to 2nd gen cephalosporins - started keflex (09/19) Covid PNA - Covid + in ED on 09/10 - No O2 requirement or covid sxs - Hydroxyzine prn for anxiety - IS-WA q2h for likely atelectasis component - Started on Decadron 6mg (09/12-09/22) - Droplet precautions Hyperkalemia, resolved - K 5.3 > 5.6 > 4.8, 4.8, 4.6 - Home Lasix - am BMPs to monitor Indeterminate troponin 0.067> 0.044 - Cardiology consulted, as above CKD Cr 1.6, GFR 31 - Monitor with am BMPs - Renally dose medications - Renal function appears to be declining. Dr. Marin is batter mixer. Will recommend OP f/u. Hx of T2DM A1c on arrival was 6.2 therefore technically pre-diabetic now - BGs remain elevated, likely 2/2 decadron - HH-LS/CC diet, although d/t food shortage in the hospital she will not be receiving tailored diets. Will cover with insulin as needed - hypoglycemia protocol; diabetes education - ACHS checks; mild SSI and bedtime SSI. Can escalate SSI to moderate if BGs continue to be elevated 2/2 steroids and diet - Restarted home glimepiride for increased BG control while in the hospital. HTN - Cards consulted, as above. Will manage BP per cards recs * Amlodipine 10mg * Hydralazine 20mg TID started 09/16 * coreg 3.125 BID - Monitor vitals CHF - mild BLE edema on exam. Pt denies SOB/dyspnea. - Caution with fluid resuscitation throughout hospitalization - continue to monitor fluid status Hx DVT - DVT in R femoral vein, per pt. Completed Eliquis tx for this, per PCP - Th Lovenox > Fondaprinux > Eliquis, see above holding eliquis now OA -PT/OT Dispo: In tele. Assessing new acute on chronic anemia. Cards consulting on afib. Drips: None IVF: SL Diet: HH-LS DVT Ppx: Eliquis GI Ppx: not indicated PCP: Rajesh Code: Full Addendum - Attending - Attending Attestation Date/Time: 09/20/20 1472 I personally evaluated the patient and discussed the management with Dr. Atkinson. I agree with the History, Examination, Assessment and Plan documented above with any addition or exceptions noted below. Pt being appropriately treated for UTI. Stable from a covid standpoint. Pt's hemoglobin continues to fall. She has no gross blood in stool. She is not on IV fluids, so dilution is not a likely culprit. Will get hemoccult. Check iron studies. Consider GI consult. She did receive a dose of eliquis this smorning but will hold the evening dose. Heart rate would jump into 100's overnight for brief periods.
[2020-09-20] MEDS: Aspirin 81 mg Enteric Coated Tablet PO SCH (07:54)
[2020-09-20] MEDS: Amlodipine 5 MG TAB PO SCH (07:54)
[2020-09-20] MEDS: Dexamethasone 4 mg/ml Vial SLOW IVP SCH (07:54)
[2020-09-20] MEDS: Polyethylene Glycol 3350 17 GM Packet PO SCH (07:54)
[2020-09-20] MEDS: Apixaban 2.5 MG TAB PO SCH (07:55)
[2020-09-20] MEDS: Carvedilol 3.125 MG TAB PO SCH ×2 (07:55→17:24)
[2020-09-20] MEDS: Cephalexin 250 MG CAP PO SCH ×2 (07:55→20:42)
[2020-09-20] MEDS: Glimepiride 1 MG TAB PO SCH (07:56)
[2020-09-20] MEDS: Furosemide 40 MG TAB PO SCH (07:56)
[2020-09-20] MEDS: hydrALAZINE 25 MG TAB PO SCH ×3 (07:56→23:04)
[2020-09-20] MEDS: Ferrous Gluconate 324 MG TAB PO SCH (07:56)
[2020-09-20 08:59] LABS: Iron 138 ug/dL (50-170); Iron Binding Capacity, Total 230 mcg/dL (265-497)
[2020-09-20 09:25] LABS: Ferritin 532.03 ng/mL (10-291)
[2020-09-20 12:55] LABS: Hemoglobin 8.7 g/dL (12.0-16.0)
[2020-09-20] MEDS: HumaLOG 300 UNITS/3 ML VIAL SC PRN ×2 (13:15→17:25)
--- NOTE | 2020-09-20 15:13 | PDOC.CPN ---
- Subjective Date: 09/20/20 Time: 14:40 Interval history: Chart and tele reviewed - Objective Allergies/Adverse Reactions: Allergies Allergy/AdvReac Type Severity Reaction Status Date / Time No Known Allergies Allergy Verified 10/18/19 12:13 Visit Medications: Current Medications Amlodipine Besylate (Amlodipine 5 Mg Tab) 10 mg PO DAILY [facility] Last Admin: 09/20/20 07:54 Dose: 10 mg Documented by: Aspirin (Aspirin 81 Mg Enteric Coated Tablet) 81 mg PO DAILY [facility] Last Admin: 09/20/20 07:54 Dose: 81 mg Documented by: Atorvastatin Calcium (Atorvastatin Calcium 20 Mg Tab) 20 mg PO [facility] Last Admin: 09/19/20 20:27 Dose: 20 mg Documented by: Carvedilol (Carvedilol 3.125 Mg Tab) 3.125 mg PO BID-[facility] Last Admin: 09/20/20 07:55 Dose: 3.125 mg Documented by: Cephalexin (Cephalexin 250 Mg Cap) 500 mg PO BID [facility] Last Admin: 09/20/20 07:55 Dose: 500 mg Documented by: Dexamethasone (Dexamethasone 4 Mg/Ml Vial) 6 mg SLOW IVP DAILY [facility] Stop: 09/22/20 09:01 Last Admin: 09/20/20 07:54 Dose: 6 mg Documented by: Dextrose/Water (Dextrose 50% Abboject 50 Ml Syringe) 25 gm SLOW IVP PRN PRN PRN Reason: Hypoglycemia Ferrous Gluconate (Ferrous Gluconate 324 Mg Tab) 324 mg PO DAILY [facility] Last Admin: 09/20/20 07:56 Dose: 324 mg Documented by: Furosemide (Furosemide 40 Mg Tab) 40 mg PO DAILY [facility] Last Admin: 09/20/20 07:56 Dose: 40 mg Documented by: Glimepiride (Glimepiride 1 Mg Tab) 1 mg PO QAM-[facility] Last Admin: 09/20/20 07:56 Dose: 1 mg Documented by: Glucagon (Glucagon 1 Mg/Ml Vial) 1 mg IM PRN PRN PRN Reason: Hypoglycemia Hydralazine HCl (Hydralazine 25 Mg Tab) 25 mg PO TID [facility] Last Admin: 09/20/20 07:56 Dose: 25 mg Documented by: Hydroxyzine HCl (Hydroxyzine 25 Mg Tab) 25 mg PO Q4H PRN PRN Reason: Anxiety Dextrose/Water (D5w) 1,000 mls @ 0 mls/hr IV .Q0M PRN PRN Reason: Hypoglycemia Insulin Human Lispro (Humalog 300 Units/3 Ml Vial) 0 units SC .BEDTIME SLIDING SC PRN PRN Reason: Bedtime Correctional Scale Last Admin: 09/19/20 20:29 Dose: 3 unit Documented by: Insulin Human Lispro (Humalog 300 Units/3 Ml Vial) 0 units SC .MILD SLIDING SCALE PRN PRN Reason: Mild Correctional Scale Last Admin: 09/20/20 13:15 Dose: 4 unit Documented by: Melatonin (Melatonin 3 Mg Tab) 3 mg PO HS PRN PRN Reason: Insomnia Polyethylene Glycol (Polyethylene Glycol 3350 17 Gm Packet) 17 gm PO DAILY [facility] Last Admin: 09/20/20 07:54 Dose: 17 gm Documented by: Sodium Chloride (Flush - Normal Saline 10 Ml Syringe) 10 ml IVF PRN PRN PRN Reason: Saline Flush Vital Signs & Weight: Vital Signs Temp Pulse Resp BP BP Pulse Ox 09/20/20 10:57 98.3 F 83 16 128/62 94 L 09/20/20 08:00 98.5 F 72 19 127/56 L 96 09/20/20 04:28 98 09/20/20 04:00 97.5 F L 73 20 140/71 96 Weight 266 lb 12.149 oz - Labs Result Diagrams: 09/20/20 12:39 09/20/20 04:38 Troponin/CKMB Troponin I 0.044 ng/mL (< 0.028) H 09/10/20 15:39 - Assessment/Plan Assessment/Plan: 1. COVID 2. Bradycardia 3. Chronic AF 4. HTN 5. Hx DVT 6. Anemia Rhythm stable. no further adenike. Continue hold bblocker and CCB. Eliquis stopped due to decrease in H/H. Repeat labs pending in AM. No changes from my part today.
[2020-09-20] MEDS: Atorvastatin Calcium 20 MG TAB PO SCH (20:43)
[2020-09-21 05:44] LABS: Anion Gap 12 mmol/L (10-20); BUN (Urea Nitrogen) 88 mg/dL (9.8-20.1); Calc. Creatinine Clearance 52 mL/min (70-130); Calcium 8.3 mg/dL (7.8-10.44); Carbon Dioxide 25 mmol/L (23-31); Chloride 107 mmol/L (98-107); Glucose 94 mg/dL (83-110); Sodium 139 mmol/L (136-145)
--- NOTE | 2020-09-21 06:04 | PDOC.FM ---
- Subjective Subjective: No acute overnight events. States she is feeling well this AM, no new complaints. She continues to have some generalized weakness due to deconditioning from hospitalization. She denies any chest pain, sob, fever/chills, dizziness, palpitations. - Objective Vital Signs & Weight: Vital Signs (12 hours) Temp Pulse Resp BP BP Pulse Ox 09/21/20 03:35 97.8 F 79 22 H 132/67 96 09/21/20 03:08 96 09/20/20 23:40 98.1 F 74 22 H 154/66 H 96 09/20/20 23:04 66 107/53 L 09/20/20 19:30 97.6 F 66 20 107/53 L 94 L Weight Weight 121 kg Most Recent Monitor Data Heart Rate from ECG 90 NIBP 141/89 NIBP BP-Mean 106 Respiration from ECG 24 SpO2 92 Result Diagrams: 09/21/20 10:40 09/21/20 04:51 Phys Exam - Physical Examination Constitutional: NAD HEENT: moist MMs, sclera anicteric Neck: supple Respiratory: no wheezing, clear to auscultation bilateral Cardiovascular: no significant murmur irregular rhythm, rate 50s Gastrointestinal: soft, non-tender, positive bowel sounds Musculoskeletal: pulses present, edema present (2+ pitting edema bilaterally to mid [place]) Neurological: non-focal, moves all 4 limbs Psychiatric: normal affect, A&O x 3 Skin: cap refill <2 seconds Deviation from normal: significant ecchymoses worst in LUE and abdomen Dx/Plan - Plan Plan: This is a 70F with a hx of AFib who presented to the ED for symptomatic bradycardia. Symptomatic bradycardia - Cards, Dr. Simmons and Brandon, consulted. Appreciate recs * Switched to Eliquis 2.5mg BID,, will check platelets and consider increase to 5mg BID - All drips d/c 09/16. If HR holds, may not require pacemaker, per cards - Central line placed 09/10 for drips, now removed - Home Coreg resumed at lower dose (3.125 BID) on 09/18 - PT eval and OOB-WA orders placed to encourage safe ambulation. Pt requires use of walker at home and has required assistance in the hospital. She was a pro vided a walker so she feels comfortable ambulating now. AFib - Hx of AFib. Admitted to tele - Cardiology consulted, as above. 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 - taking coreg 3.125mg - home dilt held - Per PCP, has been resistant to anticoag in the past, considering warfarin outpatient - will hold Michael muñoz 2/2 acute anemia - Pt provided with education packets regarding different forms of anticoagulation and encouraged to speak with her insurance since Eliquis was previously cost-prohibitive. Will place CM order to help her enroll in Medicare Acute on Chronic Anemia Hgb 10.4 > 7.9. Positive FOBT although w/o sx of GIB. Hgb pending this AM. Significant ecchymoses on exam since starting blood thinners, consider as possible source of anemia. - holding DVT ppx for now - f/u Hgb - consider inpatient vs outpatient GI consult UTI Dysuria and frequency UA +, UCX >100 ecoli, sensitive to 2nd gen cephalosporins - started keflex (09/19) Covid PNA - Covid + in ED on 09/10 - No O2 requirement or covid sxs - Hydroxyzine prn for anxiety - IS-WA q2h for likely atelectasis component - Droplet precautions - Started on Decadron 6mg (09/12-09/22) Hyperkalemia, resolved - K 5.3 > 5.6 > 4.8, 4.8, 4.6 - Home Lasix - am BMPs to monitor Indeterminate troponin 0.067> 0.044 - Cardiology consulted, as above CKD Cr 1.6, GFR 31 - Monitor with am BMPs - Renally dose medications - Renal function appears to be declining. Dr. Marin is track walker. Will recommend OP f/u. Hx of T2DM A1c on arrival was 6.2 - BGs remain elevated, likely 2/2 decadron - HH-LS/CC diet - hypoglycemia protocol; diabetes education - ACHS checks; mild SSI and bedtime SSI. Can escalate SSI to moderate if BGs continue to be elevated 2/2 steroids and diet - Restarted home glimepiride for increased BG control while in the hospital. HTN - Cards consulted, as above. Will manage BP per cards recs * Amlodipine 10mg * Hydralazine 20mg TID started 09/16 * coreg 3.125 BID - Monitor vitals CHF - mild BLE edema on exam. Pt denies SOB/dyspnea. - Caution with fluid resuscitation throughout hospitalization - continue to monitor fluid status Hx DVT - DVT in R femoral vein, per pt. Completed Eliquis tx for this, per PCP - Th Lovenox > Fondaprinux > Eliquis, see above holding eliquis now OA -PT/OT Dispo: In tele. Assessing new acute on chronic anemia. Cards consulting on afib. Drips: None IVF: SL Diet: HH-LS DVT Ppx: held / anemia GI Ppx: not indicated PCPMoreno Mena Code: Full Addendum - Attending - Attending Attestation Date/Time: 09/21/20 4024 I personally evaluated the patient and discussed the management with Dr. Dunaway. I agree with the History, Examination, Assessment and Plan documented above with any addition or exceptions noted below. H&H stable. will consult GI since FOBT positive. Once cleared by GI and cards will work on arranging placement. No anticoagulation at this time. She could be a good candidate for a watchman in a few months.
[2020-09-21] MEDS: hydrALAZINE 25 MG TAB PO SCH ×3 (07:55→21:14)
[2020-09-21] MEDS: Furosemide 40 MG TAB PO SCH (07:55)
[2020-09-21] MEDS: Cephalexin 250 MG CAP PO SCH ×2 (07:55→21:13)
[2020-09-21] MEDS: Dexamethasone 4 mg/ml Vial SLOW IVP SCH (07:55)
[2020-09-21] MEDS: Carvedilol 3.125 MG TAB PO SCH ×2 (07:55→17:27)
[2020-09-21] MEDS: Amlodipine 5 MG TAB PO SCH (07:55)
[2020-09-21] MEDS: Aspirin 81 mg Enteric Coated Tablet PO SCH (07:55)
[2020-09-21] MEDS: Polyethylene Glycol 3350 17 GM Packet PO SCH (07:56)
[2020-09-21] MEDS: Ferrous Gluconate 324 MG TAB PO SCH (07:56)
[2020-09-21] MEDS: Glimepiride 1 MG TAB PO SCH (07:59)
[2020-09-21 11:19] LABS: Hemoglobin 8.2 g/dL (12.0-16.0); Platelet Count 162 thou/uL (130-400)
[2020-09-21] MEDS: HumaLOG 300 UNITS/3 ML VIAL SC PRN (17:24)
[2020-09-21] MEDS: Atorvastatin Calcium 20 MG TAB PO SCH (21:14)
--- NOTE | 2020-09-22 00:02 | CON ---
DATE OF CONSULTATION: 09/21/2020 CHIEF COMPLAINT: Anemia. HISTORY OF PRESENT ILLNESS: Ms. Pritchett is a 70-year-old woman, who was admitted on 09/10/2020 with symptomatic bradycardia and COVID-19 infection, generalized weakness. She received steroids and convalescent plasma. She has been on anticoagulation. She was noted to have a drop in her hemoglobin, and therefore, GI was consulted to evaluate anemia. Her hemoglobin was 10.4 when she was first admitted, and this has dropped down to 8.6 on 09/19/2020 and remained stable between 8.2-8.6 today. She has had no nausea or vomiting. No abdominal pain. No diarrhea or constipation. Her stool has been brown. PAST MEDICAL HISTORY: Atrial fibrillation, diastolic congestive heart failure, chronic kidney disease, diabetes mellitus type 2, hypertension, DVT, arthritis. PAST SURGICAL HISTORY: Includes tracheostomy. FAMILY HISTORY: Negative for GI malignancy. SOCIAL HISTORY: No alcohol, tobacco, or drugs. She maybe had a colonoscopy 15 years ago. ALLERGIES: NO KNOWN DRUG ALLERGIES. CURRENT MEDICATIONS: In the hospital include, 1. Amlodipine. 2. Aspirin. 3. Atorvastatin. 4. Carvedilol. 5. Cephalexin. 6. Dexamethasone. 7. Ferrous gluconate. 8. Furosemide. 9. Glimepiride. 10. Hydralazine. 11. Polyethylene glycol. REVIEW OF SYSTEMS: Negative x10 systems reviewed, except as stated in history of present illness. PHYSICAL EXAMINATION: VITAL SIGNS: Temperature 97.6, pulse 79, blood pressure 147/70. GENERAL: She is in no acute distress. Alert and oriented x3. HEENT: Eyes have no scleral icterus. Oropharynx is clear without lesions. No cervical or supraclavicular lymphadenopathy. LUNGS: Clear to auscultation bilaterally. HEART: Regular rate and rhythm without murmur. ABDOMEN: Soft, nontender, and nondistended. Bowel sounds are present. RECTAL: Reveals light brown stool in the rectal vault. EXTREMITIES: 2+ lower extremity edema. LABORATORY DATA: White blood cell count 9.4, hemoglobin 8.2, platelets 162, creatinine 1.88. IMPRESSION: 1. Anemia. Her hemoglobin was 12.5 back on September 10, and this was 10.4 on September 16 and 8.6 on September 19, and she has remained stable over the last couple days. She has had no overt bleeding. She has been on Eliquis, which is currently held. 2. COVID pneumonia. 3. Atrial fibrillation and history of DVT. She has been on anticoagulation previously. She has no overt bleeding, but her hemoglobin has dropped down. RECOMMENDATIONS: 1. Start proton pump inhibitor. 2. Recheck the trend of her hemoglobin over the next couple days. 3. If her hemoglobin remained stable after that, she can likely restart a trial of anticoagulation. She has had no overt bleeding through this. 4. She should follow up in the future to consider upper and lower endoscopy. These will be held for now as she has no overt bleeding and is COVID positive. 5. I will sign off. Please call if GI can be of assistance. Job ID: [id number]
[2020-09-22 05:49] LABS: Anion Gap 13 mmol/L (10-20); BUN (Urea Nitrogen) 83 mg/dL (9.8-20.1); Calc. Creatinine Clearance 60 mL/min (70-130); Calcium 8.3 mg/dL (7.8-10.44); Carbon Dioxide 22 mmol/L (23-31); Chloride 105 mmol/L (98-107); Glucose 153 mg/dL (83-110); Potassium 4.5 mmol/L (3.5-5.1); Sodium 135 mmol/L (136-145)
--- NOTE | 2020-09-22 06:56 | PDOC.FM ---
- Subjective Subjective: No acute overnight events. Reports she is feeling well, ambulating throughout the room this AM. She has no acute complaints. No black or bloody stools. No lightheadedness or dizziness. Reports her knee occasionally gives out but this is chronic for her. - Objective Vital Signs & Weight: Vital Signs (12 hours) Temp Pulse Resp BP BP Pulse Ox 09/22/20 04:00 97.8 F 85 20 175/72 H 97 09/22/20 03:52 97.6 F 56 L 18 140/67 97 09/21/20 23:07 97.8 F 85 20 175/72 H 97 09/21/20 21:14 79 09/21/20 20:00 93 L 09/21/20 19:30 97.6 F 79 20 147/70 H 95 Weight Admit Weight 121 kg Weight 121 kg Most Recent Monitor Data Heart Rate from ECG 90 NIBP 141/89 NIBP BP-Mean 106 Respiration from ECG 24 SpO2 92 Result Diagrams: 09/22/20 11:59 09/22/20 05:16 Phys Exam - Physical Examination Constitutional: NAD HEENT: moist MMs Neck: supple Respiratory: no wheezing, no rales Cardiovascular: no significant murmur irregular rhythm, rate 50s Gastrointestinal: soft, non-tender Neurological: non-focal, moves all 4 limbs ambulating with walker Psychiatric: normal affect, A&O x 3 Skin: normal turgor Deviation from normal: ecchymoses L upper extremity, abdomen Dx/Plan - Plan Plan: This is a 70F with a hx of AFib who presented to the ED for symptomatic bradycardia. Symptomatic bradycardia, improved Followed by cardiology throughout this admission. Now has been stable with HR in the 50s-60s x 2 days. Occasional pause/drop to 30 bpm lasting very short periods. Now asymptomatic. - Cardiology following: DC carvedilol today due to drops into 30s overnight, stable for DC AFib Remains in afib. - Discontinued home diltiazem on admission due to bradycardia - Carvedilol gradually decreased and stopped this AM per cardiology - Initiated trial of anticoagulation with fondaparinux transitioned to eliquis; stopped due to acute anemia - Would consider AC with warfarin in future if no contraindication due to bleeding Acute on Chronic Anemia Hgb dropped from 10.4, has been 7-8 for the past 3 days. Positive FOBT, clinically no symptoms of bleeding. - holding anticoagulation - GI consulted, recommend upper & lower scope when off COVID precautions - PPI added to regimen UTI Dysuria and frequency UA +, UCX >100 ecoli, sensitive to 2nd gen cephalosporins - started keflex (09/19) to be completed on 09/24 Covid PNA, asymptomatic - Covid + in ED on 09/10 - No O2 requirement or covid sxs - Hydroxyzine prn for anxiety - IS-WA q2h for likely atelectasis component - Droplet precautions - Started on Decadron 6mg (09/12-09/22) Hyperkalemia, resolved - K 5.3 > 5.6 > 4.8, 4.8, 4.6 - Home Lasix - am BMPs to monitor Indeterminate troponin 0.067> 0.044 - Cardiology consulted, as above CKD Cr 1.6, GFR 31 - Monitor with am BMPs - Renally dose medications - Renal function appears to be declining. Dr. Marin is visual merchandising director. Will recommend OP f/u. Hx of T2DM A1c on arrival was 6.2 - BGs remain elevated, likely 2/2 decadron - HH-LS/CC diet - hypoglycemia protocol; diabetes education - ACHS checks; mild SSI and bedtime SSI. Can escalate SSI to moderate if BGs continue to be elevated 2/2 steroids and diet - Restarted home glimepiride for increased BG control while in the hospital. HTN - Cards consulted, as above. Will manage BP per cards recs * Amlodipine 10mg * Hydralazine 20mg TID started 09/16 - Monitor vitals CHF - Caution with fluid resuscitation throughout hospitalization - continue to monitor fluid status Hx DVT - DVT in R femoral vein, per pt. Completed Eliquis tx for this, per PCP - Th Lovenox > Fondaprinux > Eliquis, see above holding eliquis now OA -PT/OT Dispo: Discharge to [facility] bed Drips: None IVF: SL Diet: HH-LS DVT Ppx: held 2/2 anemia GI Ppx: PPI PCP: Rajesh Code: Full Addendum - Attending - Attending Attestation Date/Time: 09/22/20 2625 I personally evaluated the patient and discussed the management with Dr. Dunaway. I agree with the History, Examination, Assessment and Plan documented above with any addition or exceptions noted below.
[2020-09-22 07:11] LABS: Hemoglobin 7.6 g/dL (12.0-16.0)
[2020-09-22] MEDS: Aspirin 81 mg Enteric Coated Tablet PO SCH (09:16)
[2020-09-22] MEDS: Polyethylene Glycol 3350 17 GM Packet PO SCH (09:16)
[2020-09-22] MEDS: Cephalexin 250 MG CAP PO SCH (09:16)
[2020-09-22] MEDS: Dexamethasone 4 mg/ml Vial SLOW IVP SCH (09:16)
[2020-09-22] MEDS: Furosemide 40 MG TAB PO SCH (09:17)
[2020-09-22] MEDS: Carvedilol 3.125 MG TAB PO SCH ×2 (09:17→16:05)
[2020-09-22] MEDS: Ferrous Gluconate 324 MG TAB PO SCH (09:17)
[2020-09-22] MEDS: hydrALAZINE 25 MG TAB PO SCH ×2 (09:17→15:24)
[2020-09-22] MEDS: Amlodipine 5 MG TAB PO SCH (09:17)
[2020-09-22] MEDS: Glimepiride 1 MG TAB PO SCH (09:18)
[2020-09-22] MEDS ORDERED: Docusate 100 MG CAP PO PRN (09:30)
[2020-09-22 11:56] VITALS: TEMP 98.6
[2020-09-22 16:26] VITALS: BP 171/67
--- NOTE | 2020-09-23 03:53 | DIS ---
DATE OF ADMISSION: 09/10/2020 DATE OF DISCHARGE: 09/22/2020 RESIDENT: Isela Dunaway DO. DISCHARGING ATTENDING: Celso Verdugo MD CONSULTS: Cardiology: Dr. Simmons and Dr. Taylor. GI: Dr. Bush. PROCEDURES: None. PRIMARY DIAGNOSIS: Symptomatic bradycardia. SECONDARY DIAGNOSES: COVID with pneumonia, atrial fibrillation, acute on chronic anemia, urinary tract infection, hyperkalemia, chronic kidney disease, type 2 diabetes, hypertension, congestive heart failure, history of deep vein thrombosis, osteoarthritis. DISCHARGE MEDICATIONS: 1. Lasix 40 mg p.o. daily. 2. Vitamin D 2000 units p.o. daily. 3. Glimepiride 1 mg p.o. daily. 4. Ferrous gluconate 240 mg p.o. daily. 5. Atorvastatin 20 mg p.o. daily. 6. Hydralazine 25 mg p.o. t.i.d. 7. Amlodipine 10 mg p.o. daily. 8. Docusate 100 mg p.o. b.i.d. p.r.n. 9. Keflex 500 mg p.o. b.i.d. to be discontinued on 09/24. 10. MiraLAX 17 g p.o. daily. 11. Pantoprazole 40 mg p.o. daily. Discontinued Medications: 1. Diltiazem 60 mg p.o. t.i.d. 2. Coreg 12.5 mg p.o. b.i.d. 3. Aspirin 81 mg p.o. daily. 4. Eliquis 5 mg p.o. b.i.d. HISTORY OF PRESENT ILLNESS/HOSPITAL COURSE: Ms. Pritchett is a 70-year-old female with a past medical history remarkable for atrial fibrillation and hypertension, who initially presented to the hospital due to a low heart rate with associated symptoms of lightheadedness and feeling weak upon standing. On presentation, she was found to be in atrial fibrillation, although bradycardic with rates in the 20s and 30s. She was admitted for further evaluation and treatment. Her home Coreg and diltiazem were held and Cardiology was consulted. It was suspected that she would benefit from a pacemaker; however, she was found to be COVID positive on her admission screening, as a result, the decision was made to delay pacemaker placement until outside of the contagion window and less emergent placement were to become necessary. She was instead started on a dobutamine drip, which was briefly switched to an isoproterenol drip and then back to a dobutamine drip and then gradually titrated down to try to maintain her heart rate within normal range to delay pacemaker placement. On 09/16, all drips were discontinued and she was able to maintain her heart rate in the 60s and 70s. On 09/17, she had an episode of RVR and she was started on a low dose of Coreg by Cardiology. She continued to receive her other antihypertensives throughout her admission including hydralazine and amlodipine. She remained in atrial fibrillation, although rate controlled on tele. Prior to this admission, patient was not on any anticoagulation except for in 2018 when she had a DVT for which she took Eliquis. After shared decision-making with the patient, it was decided to start anticoagulation for her atrial fibrillation. She was briefly started on fondaparinux, which was switched to Eliquis with plans to switch to warfarin for cost containment; however, on 09/19, the patient was noted to have a hemoglobin of 8.6, which was a significant drop from her previous hemoglobin of 10.4 just 3 days prior. She is not experiencing any symptoms of GI bleeding; however, she had a positive fecal occult blood test and GI was consulted. They recommended to start a PPI and to have an upper and lower endoscopy performed once she is outside of her contagion window for COVID. They also recommended to trend her hemoglobin for a few days and consider restarting anticoagulation after this if her hemoglobin remains stable. On continued telemetry monitoring, the patient had a few episodes of her heart rate dropping into the 30s. Because of this, her Coreg was again stopped by Cardiology. With respect to COVID, patient had an oxygen requirement early in her admission, but was easily weaned back to room air after only 3 days. She was treated with steroids as well for supportive care. She did develop dysuria during this admission as well. Pending UA with urine culture revealed a UTI due to E coli, which was sensitive to most antibiotics. She was treated with oral Keflex for this. Per recommendations from PT and OT, she has been discharged to a [facility] swing bed for strength and reconditioning before returning to home, which is her ultimate goal. She is discharged in stable condition, but will need close cardiac and likely GI followup. She is not currently on any anticoagulation and after-endoscopy can be performed in the outpatient setting, resuming anticoagulation would be a consideration for this patient. She will likely need to use warfarin for cost containment. DISPOSITION: Stable. DISCHARGE INSTRUCTIONS: 1. Location: [facility]. 2. Diet: Heart healthy diet. 3. Activity: As tolerated. 4. Followup: With your PCP, Dr. Mena, as well as your coastal/harbor defense officer, Dr. Taylor, and GI Dr. Bush after you have completed COVID quarantine. Job ID: [id number]
== END 2020-09-22 16:30 | disposition swing bed (61) | DRG 177 ==
LOC: ERS 11:48 → IMCU/EMU 16:05 → 2SW 09-17 11:39
PROVIDERS: ADMIT Family Medicine; ATTEND Family Medicine
PROC: 02HV33Z Insertion of Infusion Device into Superior Vena Cava, Percutaneous Approach (ICD-10-PCS; principal; 2020-09-10)
PROC: B548ZZA Ultrasonography of Superior Vena Cava, Guidance (ICD-10-PCS; 2020-09-10)
PROC: XW033E5 Introduction of Remdesivir Anti-infective into Peripheral Vein, Percutaneous Approach, New Technology Group 5 (ICD-10-PCS; 2020-09-11)
PROC: XW13325 Transfusion of Convalescent Plasma (Nonautologous) into Peripheral Vein, Percutaneous Approach, New Technology Group 5 (ICD-10-PCS; 2020-09-11)
DX: U07.1 COVID-19 (principal); J12.82 Pneumonia due to coronavirus disease 2019; J96.01 Acute respiratory failure with hypoxia; I48.20 Chronic atrial fibrillation, unspecified; I13.0 Hypertensive heart and chronic kidney disease with heart failure and stage 1 through stage 4 chronic kidney disease, or unspecified chronic kidney disease; I50.32 Chronic diastolic (congestive) heart failure; E87.2 Acidosis; I24.8 Other forms of acute ischemic heart disease; N39.0 Urinary tract infection, site not specified; I25.10 Atherosclerotic heart disease of native coronary artery without angina pectoris; R00.1 Bradycardia, unspecified; G47.33 Obstructive sleep apnea (adult) (pediatric); N18.30 Chronic kidney disease, stage 3 unspecified; E78.5 Hyperlipidemia, unspecified; M19.90 Unspecified osteoarthritis, unspecified site; E11.22 Type 2 diabetes mellitus with diabetic chronic kidney disease; Z79.01 Long term (current) use of anticoagulants; Z79.82 Long term (current) use of aspirin; Z79.899 Other long term (current) drug therapy; Z86.718 Personal history of other venous thrombosis and embolism; Z83.3 Family history of diabetes mellitus; Z82.3 Family history of stroke; Z82.49 Family history of ischemic heart disease and other diseases of the circulatory system; Z93.0 Tracheostomy status; E87.5 Hyperkalemia; D64.9 Anemia, unspecified; B96.20 Unspecified Escherichia coli [E. coli] as the cause of diseases classified elsewhere
CPT/HCPCS: 36415; 36416; 36430; 36600; 71045; 80048; 80076; 81001; 82274; 82607; 82728; 82746; 82805; 83036; 83540; 83550; 83880; 84145; 85014; 85018; 85025; 85049; 85520; 86850; 86900; 86901; 87077; 87086; 87186; 93005; J1100; J1250; J1265; J1650; J1652; J1815; J7050; J7070; P9017; U0002

== ENCOUNTER 2020-11-09 17:59 | Inpatient (IN) | payer MEDICARE, BC ==
[2020-11-09] MEDS ORDERED: Furosemide 40 MG/4 ML VIAL SLOW IVP SCH ×2 (18:15→18:20)
[2020-11-09 18:23] VITALS: BMI 47.5
[2020-11-09] MEDS ORDERED: Metolazone 5 MG TAB PO SCH (18:45)
[2020-11-09 19:18] LABS: Actual Bicarbonate (HCO3a) 27.6 mEq/L (22-28); Base Excess (BEa) -0.2 mEq/L (-2.0 to +3.0); Calcium, Ionized (arterial) 1.16 mmol/L (1.12-1.30); Carboxyhemoglobin (COHb) 0.6 gm% (0.0-3.0); Hemoglobin (Hb) 10.6 g/dL (12.0-16.0); O2 Tension (PaO2), arterial 76.1 mmHg (> 70.0); Potassium - ABG Lab 4.33 mmol/L (3.70-5.30); pH, Arterial 7.27 (7.35-7.45)
[2020-11-09 19:24] LABS: CO2 Tension 62.1 mmHg (35.0-45.0); Puncture Site RBA
[2020-11-09 19:25] LABS: ALV-art Gradient 345.375 mmHg (0-20)
[2020-11-09] MEDS ORDERED: methylPREDNISolone Sod Succ 40 MG VIAL IVP SCH (20:00)
[2020-11-09] MEDS ORDERED: Famotidine/PF 20 mg/2ml Vial SLOW IVP SCH (21:00)
[2020-11-09] MEDS ORDERED: Heparin 5,000 UNITS/ML VIAL SC SCH (21:00)
[2020-11-09] MEDS ORDERED: Dextrose 50% Abboject 50 ML SYRINGE SLOW IVP PRN (21:29)
[2020-11-09] MEDS ORDERED: Dextrose 5% in Water 1,000 ML IV PRN (21:29)
[2020-11-09] MEDS ORDERED: HumaLOG 300 UNITS/3 ML VIAL SC PRN (21:29)
[2020-11-09 22:57] LABS: Base Excess (BEa) 0.3 mEq/L (-2.0 to +3.0); Calcium, Ionized (arterial) 1.16 mmol/L (1.12-1.30); Carboxyhemoglobin (COHb) 0.4 gm% (0.0-3.0); Hemoglobin (Hb) 10.4 g/dL (12.0-16.0); O2 Tension (PaO2), arterial 64.6 mmHg (> 70.0); Potassium - ABG Lab 4.24 mmol/L (3.70-5.30); pH, Arterial 7.27 (7.35-7.45)
[2020-11-09 22:58] LABS: ALV-art Gradient 357.125 mmHg (0-20); CO2 Tension 61.9 mmHg (35.0-45.0); Puncture Site RBA
[2020-11-09 23:05] LABS: Magnesium 2.1 mg/dL (1.6-2.6); Phosphorus 5.1 mg/dL (2.3-4.7)
[2020-11-10 03:14] LABS: Actual Bicarbonate (HCO3a) 30.2 mEq/L (22-28); Base Excess (BEa) 2.4 mEq/L (-2.0 to +3.0); O2 Tension (PaO2), arterial 53.1 mmHg (> 70.0); pH, Arterial 7.29 (7.35-7.45)
[2020-11-10 03:15] LABS: Carboxyhemoglobin (COHb) 0.5 gm% (0.0-3.0); Hemoglobin (Hb) 10.4 g/dL (12.0-16.0)
[2020-11-10 03:16] LABS: Calcium, Ionized (arterial) 1.16 mmol/L (1.12-1.30); Potassium - ABG Lab 4.24 mmol/L (3.70-5.30); Puncture Site RRA
[2020-11-10 04:20] LABS: ALT (SGPT) 15 U/L (8-55); AST (SGOT) 19 U/L (5-34); Albumin 3.9 g/dL (3.4-4.8); Alkaline Phosphatase 92 U/L (40-110); Anion Gap 19 mmol/L (10-20); BUN (Urea Nitrogen) 76 mg/dL (9.8-20.1); Bilirubin, Total 0.9 mg/dL (0.2-1.2); Calc. Creatinine Clearance 41 mL/min (70-130); Calcium 9.1 mg/dL (7.8-10.44); Carbon Dioxide 24 mmol/L (23-31); Chloride 99 mmol/L (98-107); Globulin 3.4 g/dL (2.4-3.5); Glucose 211 mg/dL (83-110); Potassium 4.1 mmol/L (3.5-5.1); Protein, Total 7.3 g/dL (5.8-8.1); Sodium 138 mmol/L (136-145)
[2020-11-10 04:46] LABS: Band 10 % (5-11); Hemoglobin 9.3 g/dL (12.0-16.0); Lymphocytes 10 % (21-51); MDiff Complete? YES; Mean Corpuscular HGB CONC 30.9 g/dL (32.0-36.0); Mean Corpuscular Hemoglobin 29.2 pg (27.0-31.0); Mean Corpuscular Volume 94.3 fL (78.0-98.0); Mean Platelet Volume 7.8 fL (7.4-10.4); Neutrophil 80 % (42-75); Platelet Count 228 thou/uL (130-400); RBC Distribution Width 16.2 % (11.5-14.5); Red Blood Cell (RBC) Count 3.19 mill/uL (4.20-5.40); White Blood Cell (WBC) Count 2.5 thou/uL (4.8-10.8)
[2020-11-10] MEDS ORDERED: Metolazone 5 MG TAB PO SCH (08:30)
[2020-11-10] MEDS: Pantoprazole 40 MG VIAL IVP SCH (09:18)
[2020-11-10] MEDS: Furosemide 40 MG/4 ML VIAL SLOW IVP SCH (17:05)
[2020-11-10] MEDS: methylPREDNISolone Sod Succ 40 MG VIAL IVP SCH (20:14)
[2020-11-11] MEDS ORDERED: hydrOXYzine 10 MG TAB PO PRN (02:24)
[2020-11-11] MEDS ORDERED: Lorazepam 0.5 MG TAB PO PRN (02:32)
[2020-11-11 03:38] LABS: Hemoglobin 8.9 g/dL (12.0-16.0); Mean Corpuscular HGB CONC 31.7 g/dL (32.0-36.0); Mean Corpuscular Hemoglobin 29.3 pg (27.0-31.0); Mean Corpuscular Volume 92.5 fL (78.0-98.0); Platelet Count 238 thou/uL (130-400); RBC Distribution Width 16.5 % (11.5-14.5); Red Blood Cell (RBC) Count 3.02 mill/uL (4.20-5.40); White Blood Cell (WBC) Count 3.6 thou/uL (4.8-10.8)
[2020-11-11 03:52] LABS: ALT (SGPT) 14 U/L (8-55); AST (SGOT) 16 U/L (5-34); Albumin 3.8 g/dL (3.4-4.8); Alkaline Phosphatase 81 U/L (40-110); Anion Gap 20 mmol/L (10-20); BUN (Urea Nitrogen) 105 mg/dL (9.8-20.1); Bilirubin, Total 0.7 mg/dL (0.2-1.2); Calc. Creatinine Clearance 36 mL/min (70-130); Calcium 9.5 mg/dL (7.8-10.44); Carbon Dioxide 23 mmol/L (23-31); Chloride 98 mmol/L (98-107); Globulin 3.3 g/dL (2.4-3.5); Glucose 263 mg/dL (83-110); Potassium 4.2 mmol/L (3.5-5.1); Protein, Total 7.1 g/dL (5.8-8.1); Sodium 137 mmol/L (136-145)
[2020-11-11 04:32] LABS: Lymphocytes 7 % (21-51); MDiff Complete? YES; Monocytes 5 % (0-10); Neutrophil 88 % (42-75)
[2020-11-11] MEDS: HumaLOG 300 UNITS/3 ML VIAL SC PRN ×3 (05:38→17:47)
[2020-11-11] MEDS: Furosemide 40 MG/4 ML VIAL SLOW IVP SCH ×2 (05:39→15:06)
[2020-11-11] MEDS: methylPREDNISolone Sod Succ 40 MG VIAL IVP SCH ×2 (08:50→20:27)
[2020-11-11] MEDS: Pantoprazole 40 MG VIAL IVP SCH (08:50)
[2020-11-11] MEDS: Lantus 1000 UNITS/10 ML VIAL SC SCH (09:32)
[2020-11-12 03:59] LABS: ALT (SGPT) 14 U/L (8-55); AST (SGOT) 13 U/L (5-34); Alkaline Phosphatase 81 U/L (40-110); Anion Gap 17 mmol/L (10-20); BUN (Urea Nitrogen) 114 mg/dL (9.8-20.1); Bilirubin, Total 0.7 mg/dL (0.2-1.2); Calc. Creatinine Clearance 35 mL/min (70-130); Calcium 9.7 mg/dL (7.8-10.44); Carbon Dioxide 27 mmol/L (23-31); Chloride 98 mmol/L (98-107); Globulin 3.3 g/dL (2.4-3.5); Glucose 281 mg/dL (83-110); Potassium 4.5 mmol/L (3.5-5.1); Protein, Total 7.3 g/dL (5.8-8.1); Sodium 137 mmol/L (136-145)
[2020-11-12 04:47] LABS: Band 14 % (5-11); Hemoglobin 9.1 g/dL (12.0-16.0); Lymphocytes 11 % (21-51); MDiff Complete? YES; Mean Corpuscular HGB CONC 31.5 g/dL (32.0-36.0); Mean Corpuscular Volume 92.4 fL (78.0-98.0); Monocytes 4 % (0-10); Neutrophil 71 % (42-75); Platelet Count 226 thou/uL (130-400); RBC Distribution Width 16.7 % (11.5-14.5); Red Blood Cell (RBC) Count 3.12 mill/uL (4.20-5.40); White Blood Cell (WBC) Count 2.9 thou/uL (4.8-10.8)
[2020-11-12] MEDS: Furosemide 40 MG/4 ML VIAL SLOW IVP SCH ×2 (06:37→14:31)
[2020-11-12] MEDS: HumaLOG 300 UNITS/3 ML VIAL SC PRN ×4 (06:47→21:14)
[2020-11-12] MEDS: Pantoprazole 40 MG VIAL IVP SCH (08:26)
[2020-11-12] MEDS: Lantus 1000 UNITS/10 ML VIAL SC SCH (08:26)
[2020-11-12] MEDS: methylPREDNISolone Sod Succ 40 MG VIAL IVP SCH ×2 (08:26→20:43)
[2020-11-12] MEDS ORDERED: Lantus 1000 UNITS/10 ML VIAL SC SCH (09:00)
[2020-11-12] MEDS: Piperacillin/Tazobactam 2.25 GM in Sodium Chloride 0.9% 100 ML IVPB SCH ×3 (10:11→21:13)
[2020-11-13 04:12] LABS: Band 2 % (5-11); Hemoglobin 9.3 g/dL (12.0-16.0); Hypochromia SLIGHT = 6-15 cells (100X) (0-5/hpf); Lymphocytes 10 % (21-51); MDiff Complete? YES; Mean Corpuscular HGB CONC 31.6 g/dL (32.0-36.0); Mean Corpuscular Hemoglobin 29.4 pg (27.0-31.0); Mean Corpuscular Volume 92.9 fL (78.0-98.0); Mean Platelet Volume 7.9 fL (7.4-10.4); Neutrophil 88 % (42-75); Nucleated RBC 1 % (0); Platelet Count 206 thou/uL (130-400); Platelet Morphology Comment Appears Adequate; RBC Distribution Width 16.4 % (11.5-14.5); Red Blood Cell (RBC) Count 3.18 mill/uL (4.20-5.40); White Blood Cell (WBC) Count 3.1 thou/uL (4.8-10.8)
[2020-11-13 04:16] LABS: ALT (SGPT) 13 U/L (8-55); AST (SGOT) 12 U/L (5-34); Albumin 3.8 g/dL (3.4-4.8); Alkaline Phosphatase 75 U/L (40-110); Anion Gap 20 mmol/L (10-20); BUN (Urea Nitrogen) 119 mg/dL (9.8-20.1); Bilirubin, Total 0.8 mg/dL (0.2-1.2); Calc. Creatinine Clearance 35 mL/min (70-130); Calcium 9.5 mg/dL (7.8-10.44); Carbon Dioxide 24 mmol/L (23-31); Chloride 99 mmol/L (98-107); Globulin 3.1 g/dL (2.4-3.5); Glucose 231 mg/dL (83-110); Potassium 4.8 mmol/L (3.5-5.1); Protein, Total 6.9 g/dL (5.8-8.1); Sodium 138 mmol/L (136-145)
[2020-11-13] MEDS: Piperacillin/Tazobactam 2.25 GM in Sodium Chloride 0.9% 100 ML IVPB SCH ×4 (04:39→21:08)
[2020-11-13] MEDS: Furosemide 40 MG/4 ML VIAL SLOW IVP SCH ×2 (05:08→14:22)
[2020-11-13] MEDS: HumaLOG 300 UNITS/3 ML VIAL SC PRN ×4 (05:45→21:10)
[2020-11-13] MEDS: Lantus 1000 UNITS/10 ML VIAL SC SCH (08:25)
[2020-11-13] MEDS: Pantoprazole 40 MG VIAL IVP SCH (08:26)
[2020-11-13] MEDS: Atorvastatin Calcium 20 MG TAB PO SCH (21:09)
[2020-11-14 03:42] LABS: Mean Corpuscular HGB CONC 30.6 g/dL (32.0-36.0); Mean Corpuscular Hemoglobin 28.5 pg (27.0-31.0); Mean Corpuscular Volume 92.9 fL (78.0-98.0); Mean Platelet Volume 8.5 fL (7.4-10.4); Platelet Count 232 thou/uL (130-400); RBC Distribution Width 16.2 % (11.5-14.5); White Blood Cell (WBC) Count 4.3 thou/uL (4.8-10.8)
[2020-11-14 03:50] LABS: ALT (SGPT) 13 U/L (8-55); AST (SGOT) 16 U/L (5-34); Albumin 3.6 g/dL (3.4-4.8); Alkaline Phosphatase 75 U/L (40-110); Anion Gap 18 mmol/L (10-20); BUN (Urea Nitrogen) 119 mg/dL (9.8-20.1); Bilirubin, Total 0.6 mg/dL (0.2-1.2); Calc. Creatinine Clearance 40 mL/min (70-130); Calcium 9.2 mg/dL (7.8-10.44); Carbon Dioxide 28 mmol/L (23-31); Chloride 100 mmol/L (98-107); Glucose 119 mg/dL (83-110); Potassium 4.4 mmol/L (3.5-5.1); Protein, Total 6.6 g/dL (5.8-8.1); Sodium 142 mmol/L (136-145)
[2020-11-14 03:59] LABS: Eosinophils 1 % (0-10); Lymphocytes 24 % (21-51); MDiff Complete? YES; Metamyelocyte 1 % (0-0); Monocytes 11 % (0-10); Neutrophil 63 % (42-75); Nucleated RBC 1 % (0); Platelet Morphology Comment Appears Adequate
[2020-11-14] MEDS: Piperacillin/Tazobactam 2.25 GM in Sodium Chloride 0.9% 100 ML IVPB SCH ×4 (04:36→21:24)
[2020-11-14] MEDS: Furosemide 40 MG/4 ML VIAL SLOW IVP SCH (05:02)
[2020-11-14] MEDS: predniSONE 20 MG TAB PO SCH (08:38)
[2020-11-14] MEDS: Cholecalciferol 1,000 UNITS (25 MCG) TAB PO SCH (08:38)
[2020-11-14] MEDS: Lantus 1000 UNITS/10 ML VIAL SC SCH (08:39)
[2020-11-14] MEDS: Glimepiride 1 MG TAB PO SCH (08:39)
[2020-11-14] MEDS ORDERED: Furosemide 20 MG TAB PO SCH (14:00)
[2020-11-14] MEDS: Furosemide 40 MG TAB PO SCH (14:46)
[2020-11-14] MEDS: HumaLOG 300 UNITS/3 ML VIAL SC PRN ×2 (16:49→21:25)
[2020-11-14] MEDS: Atorvastatin Calcium 20 MG TAB PO SCH (21:46)
[2020-11-15] MEDS: Piperacillin/Tazobactam 2.25 GM in Sodium Chloride 0.9% 100 ML IVPB SCH ×4 (03:11→21:05)
[2020-11-15 05:37] LABS: Band 1 % (5-11); Basophilic Stippling SLIGHT = 1-2 cells (100X) (None Seen); Eosinophils 3 % (0-10); Hemoglobin 10.3 g/dL (12.0-16.0); Lymphocytes 20 % (21-51); MDiff Complete? YES; Mean Corpuscular HGB CONC 30.5 g/dL (32.0-36.0); Mean Corpuscular Hemoglobin 28.2 pg (27.0-31.0); Mean Corpuscular Volume 92.7 fL (78.0-98.0); Mean Platelet Volume 8.5 fL (7.4-10.4); Monocytes 16 % (0-10); Neutrophil 60 % (42-75); Platelet Count 214 thou/uL (130-400); Platelet Morphology Comment Appears Adequate; RBC Distribution Width 16.3 % (11.5-14.5); Red Blood Cell (RBC) Count 3.66 mill/uL (4.20-5.40); White Blood Cell (WBC) Count 3.7 thou/uL (4.8-10.8)
[2020-11-15 05:53] LABS: ALT (SGPT) 15 U/L (8-55); AST (SGOT) 15 U/L (5-34); Albumin 3.4 g/dL (3.4-4.8); Alkaline Phosphatase 70 U/L (40-110); Anion Gap 15 mmol/L (10-20); BUN (Urea Nitrogen) 103 mg/dL (9.8-20.1); Bilirubin, Total 0.8 mg/dL (0.2-1.2); Calc. Creatinine Clearance 41 mL/min (70-130); Calcium 9.4 mg/dL (7.8-10.44); Carbon Dioxide 32 mmol/L (23-31); Chloride 97 mmol/L (98-107); Globulin 2.9 g/dL (2.4-3.5); Glucose 129 mg/dL (83-110); Potassium 4.1 mmol/L (3.5-5.1); Protein, Total 6.3 g/dL (5.8-8.1); Sodium 140 mmol/L (136-145)
[2020-11-15] MEDS: Cholecalciferol 1,000 UNITS (25 MCG) TAB PO SCH (09:12)
[2020-11-15] MEDS: Furosemide 40 MG TAB PO SCH (09:12)
[2020-11-15] MEDS: Glimepiride 1 MG TAB PO SCH (09:12)
[2020-11-15] MEDS: predniSONE 20 MG TAB PO SCH (10:41)
[2020-11-15] MEDS ORDERED: Non-Formulary Item 1 EACH (Diltiazem Hcl [Cardizem] 60 MG Tab) PO SCH (17:00)
[2020-11-15] MEDS: Atorvastatin Calcium 20 MG TAB PO SCH (20:09)
[2020-11-15] MEDS: Carvedilol 25 MG TAB PO SCH (20:09)
[2020-11-15] MEDS ORDERED: Diltiazem HCl SR 60 mg Capsule PO SCH (21:00)
[2020-11-16] MEDS: Piperacillin/Tazobactam 2.25 GM in Sodium Chloride 0.9% 100 ML IVPB SCH (03:50)
[2020-11-16 04:29] LABS: Mean Corpuscular HGB CONC 31.7 g/dL (32.0-36.0); Mean Corpuscular Hemoglobin 29.5 pg (27.0-31.0); Mean Corpuscular Volume 92.9 fL (78.0-98.0); Mean Platelet Volume 8.2 fL (7.4-10.4); Platelet Count 175 thou/uL (130-400); Red Blood Cell (RBC) Count 3.72 mill/uL (4.20-5.40); White Blood Cell (WBC) Count 3.8 thou/uL (4.8-10.8)
[2020-11-16 04:40] LABS: ALT (SGPT) 18 U/L (8-55); AST (SGOT) 19 U/L (5-34); Albumin 3.2 g/dL (3.4-4.8); Alkaline Phosphatase 66 U/L (40-110); Anion Gap 11 mmol/L (10-20); BUN (Urea Nitrogen) 84 mg/dL (9.8-20.1); Bilirubin, Total 0.7 mg/dL (0.2-1.2); Calc. Creatinine Clearance 43 mL/min (70-130); Calcium 9.1 mg/dL (7.8-10.44); Carbon Dioxide 37 mmol/L (23-31); Chloride 97 mmol/L (98-107); Globulin 2.7 g/dL (2.4-3.5); Glucose 87 mg/dL (83-110); Protein, Total 5.9 g/dL (5.8-8.1); Sodium 141 mmol/L (136-145)
[2020-11-16 04:53] LABS: Eosinophils 13 % (0-10); Lymphocytes 21 % (21-51); MDiff Complete? YES; Monocytes 6 % (0-10); Neutrophil 60 % (42-75); Platelet Morphology Comment Appears Adequate
[2020-11-16] MEDS ORDERED: Furosemide 40 MG TAB PO SCH (09:00)
[2020-11-16] MEDS: Carvedilol 25 MG TAB PO SCH (09:56)
[2020-11-16] MEDS: Cholecalciferol 1,000 UNITS (25 MCG) TAB PO SCH (09:56)
[2020-11-16] MEDS: Glimepiride 1 MG TAB PO SCH (10:03)
[2020-11-16] MEDS: hydrALAZINE 25 MG TAB PO SCH ×2 (15:40→20:44)
[2020-11-16] MEDS: HumaLOG 300 UNITS/3 ML VIAL SC PRN (17:23)
[2020-11-16] MEDS: Atorvastatin Calcium 20 MG TAB PO SCH (20:44)
[2020-11-16] MEDS ORDERED: Apixaban 5 MG TAB PO SCH (21:00)
[2020-11-17 05:46] LABS: Band 1 % (5-11); Eosinophils 2 % (0-10); Hemoglobin 11.1 g/dL (12.0-16.0); Hypochromia SLIGHT = 6-15 cells (100X) (0-5/hpf); Lymphocytes 13 % (21-51); MDiff Complete? YES; Mean Corpuscular HGB CONC 31.3 g/dL (32.0-36.0); Mean Corpuscular Hemoglobin 28.9 pg (27.0-31.0); Mean Corpuscular Volume 92.2 fL (78.0-98.0); Monocytes 2 % (0-10); Neutrophil 82 % (42-75); Platelet Count 179 thou/uL (130-400); Platelet Morphology Comment Appears Adequate; RBC Distribution Width 15.9 % (11.5-14.5); Red Blood Cell (RBC) Count 3.83 mill/uL (4.20-5.40); White Blood Cell (WBC) Count 3.9 thou/uL (4.8-10.8)
[2020-11-17 05:47] LABS: Anion Gap 15 mmol/L (10-20); BUN (Urea Nitrogen) 83 mg/dL (9.8-20.1); Bilirubin, Total 0.6 mg/dL (0.2-1.2); Calc. Creatinine Clearance 47 mL/min (70-130); Carbon Dioxide 33 mmol/L (23-31); Chloride 95 mmol/L (98-107); Glucose 73 mg/dL (83-110); Potassium 3.5 mmol/L (3.5-5.1); Protein, Total 5.7 g/dL (5.8-8.1); Sodium 139 mmol/L (136-145)
[2020-11-17 05:48] LABS: ALT (SGPT) 17 U/L (8-55); AST (SGOT) 18 U/L (5-34); Alkaline Phosphatase 72 U/L (40-110); Globulin 2.7 g/dL (2.4-3.5)
[2020-11-17] MEDS: hydrALAZINE 25 MG TAB PO SCH (08:44)
[2020-11-17] MEDS: Cholecalciferol 1,000 UNITS (25 MCG) TAB PO SCH (08:45)
[2020-11-17] MEDS ORDERED: Amlodipine 10 MG TAB PO SCH (09:00)
[2020-11-17] MEDS ORDERED: Furosemide 40 MG TAB PO SCH (09:00)
[2020-11-17] MEDS ORDERED: FERROUS GLUCONATE 240 MG PO SCH (09:00)
[2020-11-17] MEDS: Glimepiride 1 MG TAB PO SCH (10:29)
[2020-11-17 11:56] VITALS: BP 141/67; TEMP 97.6
== END 2020-11-17 13:18 | disposition home or self-care (01) | DRG 291 ==
LOC: IMCU/EMU 17:59 → 2NO 11-14 18:45
PROVIDERS: ADMIT Student in an Organized Health Care Education/Training Program; ATTEND Student in an Organized Health Care Education/Training Program
DX: I13.0 Hypertensive heart and chronic kidney disease with heart failure and stage 1 through stage 4 chronic kidney disease, or unspecified chronic kidney disease (principal); J96.01 Acute respiratory failure with hypoxia; J96.02 Acute respiratory failure with hypercapnia; I50.33 Acute on chronic diastolic (congestive) heart failure; I48.20 Chronic atrial fibrillation, unspecified; N18.4 Chronic kidney disease, stage 4 (severe); N17.9 Acute kidney failure, unspecified; E66.2 Morbid (severe) obesity with alveolar hypoventilation; E87.3 Alkalosis; Z68.41 Body mass index [BMI] 40.0-44.9, adult; I27.20 Pulmonary hypertension, unspecified; E78.5 Hyperlipidemia, unspecified; B96.20 Unspecified Escherichia coli [E. coli] as the cause of diseases classified elsewhere; I50.810 Right heart failure, unspecified; D63.1 Anemia in chronic kidney disease; E78.00 Pure hypercholesterolemia, unspecified; I25.10 Atherosclerotic heart disease of native coronary artery without angina pectoris; B96.1 Klebsiella pneumoniae [K. pneumoniae] as the cause of diseases classified elsewhere; Z86.16 Personal history of COVID-19; Z79.84 Long term (current) use of oral hypoglycemic drugs; Z79.899 Other long term (current) drug therapy; Z93.1 Gastrostomy status; Z93.0 Tracheostomy status; Z91.14 Patient's other noncompliance with medication regimen; Z86.718 Personal history of other venous thrombosis and embolism; N30.90 Cystitis, unspecified without hematuria
CPT/HCPCS: 36415; 36416; 36600; 71045; 78451; 80048; 80053; 82553; 82805; 83036; 83735; 84100; 85007; 85025; 85027; 87077; 87086; 87186; 93005; 93306; 93970; 94640; 94660; 94760; 96372; A9540; C9113; J1644; J1650; J1815; J1940; J2060; J2543; J2920; J2930; J3490; J7512; J7620; S0028; U0003; U0005

== ENCOUNTER 2021-07-10 12:18 | Inpatient (IN) | payer MEDICARE, BC ==
[2021-07-10 14:04] VITALS: BMI 34.6
[2021-07-10] MEDS ORDERED: Acetaminophen 325 MG TAB PO PRN (14:34)
[2021-07-10] MEDS ORDERED: Dextrose 5% in Water 1,000 ML IV PRN (14:47)
[2021-07-10] MEDS ORDERED: Dextrose 50% Abboject 50 ML SYRINGE SLOW IVP PRN (14:47)
[2021-07-10 14:52] LABS: Troponin I 0.069 ng/mL (< 0.028)
[2021-07-10] MEDS ORDERED: Potassium Chloride 20 MEQ TAB PO SCH (15:00)
[2021-07-10] MEDS: hydrALAZINE 25 MG TAB PO SCH ×2 (16:25→20:57)
[2021-07-10] MEDS ORDERED: Furosemide 40 MG/4 ML VIAL SLOW IVP SCH (17:00)
[2021-07-10 18:26] LABS: Magnesium 1.9 mg/dL (1.6-2.6)
[2021-07-10 18:31] LABS: Troponin I 0.048 ng/mL (< 0.028)
[2021-07-10] MEDS: Atorvastatin Calcium 40 MG TAB PO SCH (20:57)
[2021-07-11 04:45] LABS: #Basophils 0.1 thou/uL (0.0-0.2); #Lymphocytes 0.5 thou/uL (1.20-3.40); #Monocytes 0.8 thou/uL (0.11-0.59); #Neutrophils 8.6 thou/uL (1.40-6.50); %Basophils 0.9 % (0.0-1.0); %Eosinophils 0.4 % (0.0-10.0); %Monocytes 7.7 % (0.0-10.0); %Neutrophils 85.9 % (42.0-75.0); Hemoglobin 8.7 g/dL (12.0-16.0); Mean Corpuscular HGB CONC 33.2 g/dL (32.0-36.0); Mean Corpuscular Hemoglobin 29.6 pg (27.0-31.0); Mean Corpuscular Volume 89.1 fL (78.0-98.0); Mean Platelet Volume 8.4 fL (7.4-10.4); Platelet Count 214 thou/uL (130-400); Red Blood Cell (RBC) Count 2.93 mill/uL (4.20-5.40)
[2021-07-11 05:04] LABS: Anion Gap 14 mmol/L (10-20); BUN (Urea Nitrogen) 60 mg/dL (9.8-20.1); Calc. Creatinine Clearance 37 mL/min (70-130); Calcium 8.9 mg/dL (7.8-10.44); Carbon Dioxide 23 mmol/L (23-31); Chloride 101 mmol/L (98-107); Glucose 69 mg/dL (83-110); Potassium 3.2 mmol/L (3.5-5.1); Sodium 135 mmol/L (136-145)
[2021-07-11] MEDS ORDERED: Potassium Chloride 20 MEQ TAB PO SCH (06:00)
[2021-07-11 07:08] LABS: Magnesium 1.8 mg/dL (1.6-2.6)
[2021-07-11] MEDS ORDERED: Glimepiride 1 MG TAB PO SCH (08:00)
[2021-07-11] MEDS ORDERED: Enoxaparin Sodium 40 MG/0.4 ML SYRINGE SC SCH (09:00)
[2021-07-11] MEDS: hydrALAZINE 25 MG TAB PO SCH ×3 (09:26→20:58)
[2021-07-11] MEDS: Ferrous Gluconate 324 MG TAB PO SCH (09:27)
[2021-07-11] MEDS: Cholecalciferol 1,000 UNITS (25 MCG) TAB PO SCH (09:27)
[2021-07-11] MEDS: Amlodipine 10 MG TAB PO SCH (09:27)
[2021-07-11] MEDS ORDERED: Furosemide 40 MG/4 ML VIAL SLOW IVP SCH (10:15)
[2021-07-11 13:28] LABS: Anion Gap 14 mmol/L (10-20); BUN (Urea Nitrogen) 55 mg/dL (9.8-20.1); Calc. Creatinine Clearance 37 mL/min (70-130); Calcium 9.1 mg/dL (7.8-10.44); Carbon Dioxide 24 mmol/L (23-31); Chloride 102 mmol/L (98-107); Glucose 145 mg/dL (83-110); Potassium 3.7 mmol/L (3.5-5.1); Sodium 136 mmol/L (136-145)
[2021-07-11] MEDS ORDERED: Furosemide 20 MG/2 ML VIAL SLOW IVP SCH ×2 (17:15→20:45)
[2021-07-11] MEDS: Budesonide 0.25 MG/2 ML NEB INH SCH (19:14)
[2021-07-11] MEDS: Benzonatate 100 MG CAP PO PRN (20:58)
[2021-07-11] MEDS: Atorvastatin Calcium 40 MG TAB PO SCH (20:58)
[2021-07-12] MEDS ORDERED: Lactated Ringer's 500 ML IV SCH (02:15)
[2021-07-12 04:37] LABS: #Lymphocytes 0.6 thou/uL (1.20-3.40); #Monocytes 0.9 thou/uL (0.11-0.59); #Neutrophils 8.8 thou/uL (1.40-6.50); %Eosinophils 0.3 % (0.0-10.0); %Lymphocytes 5.7 % (21.0-51.0); %Monocytes 8.8 % (0.0-10.0); %Neutrophils 85.2 % (42.0-75.0); Hemoglobin 8.8 g/dL (12.0-16.0); Mean Corpuscular HGB CONC 32.1 g/dL (32.0-36.0); Mean Corpuscular Volume 90.4 fL (78.0-98.0); Mean Platelet Volume 7.7 fL (7.4-10.4); Platelet Count 238 thou/uL (130-400); RBC Distribution Width 17.1 % (11.5-14.5); Red Blood Cell (RBC) Count 3.02 mill/uL (4.20-5.40); White Blood Cell (WBC) Count 10.3 thou/uL (4.8-10.8)
[2021-07-12 05:00] LABS: Anion Gap 13 mmol/L (10-20); BUN (Urea Nitrogen) 53 mg/dL (9.8-20.1); Calc. Creatinine Clearance 40 mL/min (70-130); Calcium 9.1 mg/dL (7.8-10.44); Carbon Dioxide 25 mmol/L (23-31); Chloride 102 mmol/L (98-107); Glucose 121 mg/dL (83-110); Potassium 3.5 mmol/L (3.5-5.1); Sodium 136 mmol/L (136-145)
[2021-07-12] MEDS ORDERED: Furosemide 40 MG/4 ML VIAL SLOW IVP SCH (08:15)
[2021-07-12] MEDS: hydrALAZINE 25 MG TAB PO SCH ×3 (09:10→21:32)
[2021-07-12] MEDS: Amlodipine 10 MG TAB PO SCH (09:10)
[2021-07-12] MEDS: Cholecalciferol 1,000 UNITS (25 MCG) TAB PO SCH (09:11)
[2021-07-12] MEDS: Ferrous Gluconate 324 MG TAB PO SCH (09:11)
[2021-07-12] MEDS: Enoxaparin Sodium 30 MG/0.3 ML SYRINGE SC SCH (09:11)
[2021-07-12] MEDS: Budesonide 0.25 MG/2 ML NEB INH SCH ×2 (10:00→18:37)
[2021-07-12] MEDS ORDERED: hydrALAZINE 25 MG TAB PO SCH ×2 (10:25→10:45)
[2021-07-12] MEDS ORDERED: Metoprolol Tartrate 25 MG TAB PO SCH ×3 (10:30→21:00)
[2021-07-12 11:48] LABS: Magnesium 1.9 mg/dL (1.6-2.6)
[2021-07-12] MEDS: Furosemide 40 MG/4 ML VIAL SLOW IVP SCH (15:22)
[2021-07-12] MEDS: Benzonatate 100 MG CAP PO PRN (21:32)
[2021-07-12] MEDS: Atorvastatin Calcium 40 MG TAB PO SCH (21:32)
[2021-07-13] MEDS: Furosemide 40 MG/4 ML VIAL SLOW IVP SCH ×2 (04:51→13:34)
[2021-07-13 05:33] LABS: Anion Gap 16 mmol/L (10-20); BUN (Urea Nitrogen) 52 mg/dL (9.8-20.1); Calc. Creatinine Clearance 39 mL/min (70-130); Calcium 9.3 mg/dL (7.8-10.44); Carbon Dioxide 24 mmol/L (23-31); Chloride 100 mmol/L (98-107); Glucose 163 mg/dL (83-110); Magnesium 1.9 mg/dL (1.6-2.6); Potassium 3.5 mmol/L (3.5-5.1); Sodium 136 mmol/L (136-145)
[2021-07-13 05:35] LABS: Anisocytosis SLIGHT = 6-15 cells (100X) (0-5/hpf); Band 1 % (5-11); Eosinophils 1 % (0-10); Hemoglobin 9.5 g/dL (12.0-16.0); Hypochromia SLIGHT = 6-15 cells (100X) (0-5/hpf); Lymphocytes 8 % (21-51); MDiff Complete? YES; Mean Corpuscular HGB CONC 31.2 g/dL (32.0-36.0); Mean Corpuscular Hemoglobin 28.4 pg (27.0-31.0); Mean Platelet Volume 7.8 fL (7.4-10.4); Monocytes 8 % (0-10); Myelocyte 1 % (0-0); Neutrophil 81 % (42-75); Platelet Count 295 thou/uL (130-400); Platelet Morphology Comment Appears Adequate; Polychromasia SLIGHT = 2-3 cells (100X) (0-2/hpf); RBC Distribution Width 17.1 % (11.5-14.5); Red Blood Cell (RBC) Count 3.34 mill/uL (4.20-5.40)
[2021-07-13] MEDS: Budesonide 0.5 MG/2 ML NEB NEB SCH ×2 (06:46→19:27)
[2021-07-13 07:06] LABS: Actual Bicarbonate (HCO3a) 23.8 mEq/L (22-28); Base Excess (BEa) -0.1 mEq/L (-2.0 to +3.0); CO2 Tension 36.3 mmHg (35.0-45.0); Calcium, Ionized (arterial) 1.18 mmol/L (1.12-1.30); Carboxyhemoglobin (COHb) 0.7 gm% (0.0-3.0); O2 Tension (PaO2), arterial 66.6 mmHg (> 70.0); Potassium - ABG Lab 3.54 mmol/L (3.70-5.30); pH, Arterial 7.44 (7.35-7.45)
[2021-07-13 07:10] LABS: ALV-art Gradient 244.525 mmHg (0-20)
[2021-07-13 07:11] LABS: Puncture Site LRA
[2021-07-13] MEDS: Ferrous Gluconate 324 MG TAB PO SCH (08:00)
[2021-07-13] MEDS ORDERED: Metoprolol Tartrate 25 MG TAB PO SCH (08:38)
[2021-07-13] MEDS: Cholecalciferol 1,000 UNITS (25 MCG) TAB PO SCH (08:51)
[2021-07-13] MEDS: Dexamethasone 4 mg/ml Vial SLOW IVP SCH (08:52)
[2021-07-13] MEDS: hydrALAZINE 25 MG TAB PO SCH ×3 (08:52→20:17)
[2021-07-13] MEDS: Enoxaparin Sodium 30 MG/0.3 ML SYRINGE SC SCH (08:52)
[2021-07-13] MEDS: Amlodipine 10 MG TAB PO SCH (08:53)
[2021-07-13] MEDS: Metoprolol Tartrate 50 MG TAB PO SCH ×2 (08:53→20:17)
[2021-07-13] MEDS ORDERED: cefTRIAXone\\ROCEPHIN 1 GM VIAL IM SCH (11:00)
[2021-07-13] MEDS ORDERED: guaiFENesin 200 MG TAB PO PRN (11:28)
[2021-07-13] MEDS ORDERED: guaiFENesin 200 MG TAB PO SCH (11:30)
[2021-07-13] MEDS: Azithromycin 500 MG in Sodium Chloride 0.9% 250 ML 250 ML IVPB SCH (11:38)
[2021-07-13] MEDS: HumaLOG 300 UNITS/3 ML VIAL SC PRN ×2 (11:43→20:49)
[2021-07-13 17:27] LABS: Strep pneumo Urine Ag NEGATIVE (NEGATIVE)
[2021-07-13] MEDS: Atorvastatin Calcium 40 MG TAB PO SCH (20:17)
[2021-07-14] MEDS: Furosemide 40 MG/4 ML VIAL SLOW IVP SCH (05:34)
[2021-07-14 05:42] LABS: Anion Gap 17 mmol/L (10-20); BUN (Urea Nitrogen) 66 mg/dL (9.8-20.1); Calc. Creatinine Clearance 33 mL/min (70-130); Calcium 9.9 mg/dL (7.8-10.44); Carbon Dioxide 24 mmol/L (23-31); Chloride 100 mmol/L (98-107); Glucose 182 mg/dL (83-110); Magnesium 2.2 mg/dL (1.6-2.6); Potassium 4.1 mmol/L (3.5-5.1); Sodium 137 mmol/L (136-145)
[2021-07-14] MEDS: HumaLOG 300 UNITS/3 ML VIAL SC PRN ×4 (05:58→22:47)
[2021-07-14 06:16] LABS: Hemoglobin 8.9 g/dL (12.0-16.0); Mean Corpuscular HGB CONC 32.5 g/dL (32.0-36.0); Mean Corpuscular Hemoglobin 29.6 pg (27.0-31.0); Mean Corpuscular Volume 91.1 fL (78.0-98.0); Mean Platelet Volume 8.2 fL (7.4-10.4); Platelet Count 306 thou/uL (130-400); RBC Distribution Width 16.8 % (11.5-14.5); White Blood Cell (WBC) Count 10.8 thou/uL (4.8-10.8)
[2021-07-14 06:17] LABS: Band 9 % (5-11); Lymphocytes 2 % (21-51); MDiff Complete? YES; Monocytes 3 % (0-10); Neutrophil 86 % (42-75); Platelet Morphology Comment Appears Adequate
[2021-07-14] MEDS: Budesonide 0.5 MG/2 ML NEB NEB SCH ×2 (06:51→19:44)
[2021-07-14] MEDS: Amlodipine 10 MG TAB PO SCH (08:59)
[2021-07-14] MEDS: Ferrous Gluconate 324 MG TAB PO SCH (08:59)
[2021-07-14] MEDS: Dexamethasone 4 mg/ml Vial SLOW IVP SCH (09:00)
[2021-07-14] MEDS: Metoprolol Tartrate 50 MG TAB PO SCH ×2 (09:00→20:49)
[2021-07-14] MEDS: Enoxaparin Sodium 30 MG/0.3 ML SYRINGE SC SCH (09:00)
[2021-07-14] MEDS: Cholecalciferol 1,000 UNITS (25 MCG) TAB PO SCH (09:00)
[2021-07-14] MEDS: hydrALAZINE 25 MG TAB PO SCH ×3 (09:00→20:49)
[2021-07-14] MEDS: Azithromycin 500 MG in Sodium Chloride 0.9% 250 ML 250 ML IVPB SCH (11:29)
[2021-07-14] MEDS ORDERED: cefTRIAXone\\ROCEPHIN 1 GM in Sodium Chloride 0.9% 100 ML IVPB SCH (14:00)
[2021-07-14] MEDS: Atorvastatin Calcium 40 MG TAB PO SCH (20:49)
[2021-07-15 04:59] LABS: Anisocytosis MODERATE=16-30 cells (100X) (0-5/hpf); Band 3 % (5-11); Hemoglobin 8.2 g/dL (12.0-16.0); Hypochromia SLIGHT = 6-15 cells (100X) (0-5/hpf); Lymphocytes 9 % (21-51); MDiff Complete? YES; Mean Corpuscular Hemoglobin 29.3 pg (27.0-31.0); Mean Corpuscular Volume 91.8 fL (78.0-98.0); Mean Platelet Volume 8.3 fL (7.4-10.4); Monocytes 3 % (0-10); Neutrophil 85 % (42-75); Platelet Count 285 thou/uL (130-400); Platelet Morphology Comment Appears Adequate; Polychromasia SLIGHT = 2-3 cells (100X) (0-2/hpf); RBC Distribution Width 17.1 % (11.5-14.5); Red Blood Cell (RBC) Count 2.79 mill/uL (4.20-5.40); White Blood Cell (WBC) Count 7.5 thou/uL (4.8-10.8)
[2021-07-15 05:07] LABS: Anion Gap 18 mmol/L (10-20); BUN (Urea Nitrogen) 83 mg/dL (9.8-20.1); Calc. Creatinine Clearance 31 mL/min (70-130); Calcium 9.5 mg/dL (7.8-10.44); Carbon Dioxide 20 mmol/L (23-31); Chloride 100 mmol/L (98-107); Glucose 204 mg/dL (83-110); Potassium 3.9 mmol/L (3.5-5.1); Sodium 134 mmol/L (136-145)
[2021-07-15] MEDS: HumaLOG 300 UNITS/3 ML VIAL SC PRN ×4 (05:58→21:43)
[2021-07-15] MEDS: Budesonide 0.5 MG/2 ML NEB NEB SCH ×2 (07:19→22:53)
[2021-07-15] MEDS: Enoxaparin Sodium 30 MG/0.3 ML SYRINGE SC SCH (08:40)
[2021-07-15] MEDS: Cholecalciferol 1,000 UNITS (25 MCG) TAB PO SCH (08:40)
[2021-07-15] MEDS: Metoprolol Tartrate 50 MG TAB PO SCH ×2 (08:41→21:40)
[2021-07-15] MEDS: hydrALAZINE 25 MG TAB PO SCH ×3 (08:42→21:40)
[2021-07-15] MEDS: Ferrous Gluconate 324 MG TAB PO SCH (08:42)
[2021-07-15] MEDS: Amlodipine 10 MG TAB PO SCH (08:42)
[2021-07-15] MEDS: Dexamethasone 4 mg/ml Vial SLOW IVP SCH (08:42)
[2021-07-15] MEDS ORDERED: Cefdinir 300 MG CAP PO SCH (09:00)
[2021-07-15] MEDS ORDERED: Azithromycin 250 MG TAB PO SCH ×2 (12:00)
[2021-07-15] MEDS ORDERED: Metoprolol Tartrate 100 MG TAB PO SCH (21:00)
[2021-07-15] MEDS: Atorvastatin Calcium 40 MG TAB PO SCH (21:40)
[2021-07-16 05:38] LABS: Anion Gap 15 mmol/L (10-20); BUN (Urea Nitrogen) 97 mg/dL (9.8-20.1); Calc. Creatinine Clearance 29 mL/min (70-130); Calcium 9.4 mg/dL (7.8-10.44); Carbon Dioxide 23 mmol/L (23-31); Chloride 102 mmol/L (98-107); Glucose 163 mg/dL (83-110); Potassium 4.3 mmol/L (3.5-5.1); Sodium 136 mmol/L (136-145)
[2021-07-16 05:47] LABS: Hemoglobin 8.2 g/dL (12.0-16.0); Mean Corpuscular HGB CONC 32.4 g/dL (32.0-36.0); Mean Corpuscular Hemoglobin 29.3 pg (27.0-31.0); Mean Corpuscular Volume 90.4 fL (78.0-98.0); Mean Platelet Volume 8.3 fL (7.4-10.4); Platelet Count 313 thou/uL (130-400); RBC Distribution Width 17.1 % (11.5-14.5); Red Blood Cell (RBC) Count 2.79 mill/uL (4.20-5.40); White Blood Cell (WBC) Count 7.5 thou/uL (4.8-10.8)
[2021-07-16] MEDS: HumaLOG 300 UNITS/3 ML VIAL SC PRN ×4 (05:58→21:35)
[2021-07-16] MEDS: Budesonide 0.5 MG/2 ML NEB NEB SCH (07:55)
[2021-07-16 09:38] LABS: Band 3 % (5-11); Lymphocytes 10 % (21-51); MDiff Complete? YES; Monocytes 8 % (0-10); Neutrophil 79 % (42-75); Ovalocytes SLIGHT = 2-5 cells (100X) (0-1/hpf); Platelet Morphology Comment Appears Adequate; Polychromasia SLIGHT = 2-3 cells (100X) (0-2/hpf)
[2021-07-16] MEDS: Cefdinir 300 MG CAP PO SCH (09:49)
[2021-07-16] MEDS: Cholecalciferol 1,000 UNITS (25 MCG) TAB PO SCH (09:49)
[2021-07-16] MEDS: Dexamethasone 4 mg/ml Vial SLOW IVP SCH (09:49)
[2021-07-16] MEDS: Metoprolol Tartrate 50 MG TAB PO SCH ×2 (09:49→21:35)
[2021-07-16] MEDS: Enoxaparin Sodium 30 MG/0.3 ML SYRINGE SC SCH (09:49)
[2021-07-16] MEDS: guaiFENesin 200 MG TAB PO SCH ×2 (09:49→21:35)
[2021-07-16] MEDS: Amlodipine 10 MG TAB PO SCH (09:50)
[2021-07-16] MEDS: Ferrous Gluconate 324 MG TAB PO SCH (09:50)
[2021-07-16] MEDS: hydrALAZINE 25 MG TAB PO SCH ×3 (09:50→21:35)
[2021-07-16 10:45] LABS: Anion Gap 16 mmol/L (10-20); BUN (Urea Nitrogen) 102 mg/dL (9.8-20.1); Calc. Creatinine Clearance 29 mL/min (70-130); Calcium 9.2 mg/dL (7.8-10.44); Carbon Dioxide 23 mmol/L (23-31); Chloride 102 mmol/L (98-107); Glucose 191 mg/dL (83-110); Potassium 3.9 mmol/L (3.5-5.1); Sodium 137 mmol/L (136-145)
[2021-07-16] MEDS ORDERED: Lactated Ringer's 1,000 ML IV SCH ×2 (15:00→16:15)
[2021-07-16] MEDS: Atorvastatin Calcium 40 MG TAB PO SCH (21:34)
[2021-07-17] MEDS: Budesonide 0.5 MG/2 ML NEB NEB SCH ×3 (01:26→18:59)
[2021-07-17 05:00] LABS: Hemoglobin 8.6 g/dL (12.0-16.0); Mean Corpuscular HGB CONC 32.1 g/dL (32.0-36.0); Mean Corpuscular Hemoglobin 29.1 pg (27.0-31.0); Mean Corpuscular Volume 90.7 fL (78.0-98.0); Mean Platelet Volume 8.1 fL (7.4-10.4); Platelet Count 367 thou/uL (130-400); Red Blood Cell (RBC) Count 2.95 mill/uL (4.20-5.40); White Blood Cell (WBC) Count 7.5 thou/uL (4.8-10.8)
[2021-07-17 05:12] LABS: Anion Gap 14 mmol/L (10-20); BUN (Urea Nitrogen) 106 mg/dL (9.8-20.1); Calc. Creatinine Clearance 32 mL/min (70-130); Carbon Dioxide 24 mmol/L (23-31); Chloride 103 mmol/L (98-107); Glucose 168 mg/dL (83-110); Potassium 4.2 mmol/L (3.5-5.1); Sodium 137 mmol/L (136-145)
[2021-07-17 05:13] LABS: Band 3 % (5-11); Lymphocytes 5 % (21-51); MDiff Complete? YES; Monocytes 7 % (0-10); Neutrophil 85 % (42-75)
[2021-07-17] MEDS: Dexamethasone 4 mg/ml Vial SLOW IVP SCH (09:30)
[2021-07-17] MEDS: guaiFENesin 200 MG TAB PO SCH ×2 (09:30→20:34)
[2021-07-17] MEDS: Enoxaparin Sodium 30 MG/0.3 ML SYRINGE SC SCH (09:30)
[2021-07-17] MEDS: hydrALAZINE 25 MG TAB PO SCH ×3 (09:31→20:34)
[2021-07-17] MEDS: Amlodipine 10 MG TAB PO SCH (09:31)
[2021-07-17] MEDS: Ferrous Gluconate 324 MG TAB PO SCH (09:31)
[2021-07-17] MEDS: Cefdinir 300 MG CAP PO SCH (09:31)
[2021-07-17] MEDS: Cholecalciferol 1,000 UNITS (25 MCG) TAB PO SCH (09:31)
[2021-07-17] MEDS: Metoprolol Tartrate 50 MG TAB PO SCH ×2 (09:31→20:34)
[2021-07-17] MEDS: HumaLOG 300 UNITS/3 ML VIAL SC PRN ×3 (11:41→20:36)
[2021-07-17 14:16] LABS: SARS-CoV-2 PCR by NAA Not Detected (NotDetected)
[2021-07-17] MEDS: Atorvastatin Calcium 40 MG TAB PO SCH (20:34)
[2021-07-18 05:20] LABS: Hemoglobin 8.5 g/dL (12.0-16.0); Mean Corpuscular HGB CONC 31.1 g/dL (32.0-36.0); Mean Corpuscular Hemoglobin 28.4 pg (27.0-31.0); Mean Corpuscular Volume 91.4 fL (78.0-98.0); Mean Platelet Volume 7.7 fL (7.4-10.4); Platelet Count 342 thou/uL (130-400); Red Blood Cell (RBC) Count 2.99 mill/uL (4.20-5.40); White Blood Cell (WBC) Count 6.7 thou/uL (4.8-10.8)
[2021-07-18 05:30] LABS: Anion Gap 15 mmol/L (10-20); BUN (Urea Nitrogen) 102 mg/dL (9.8-20.1); Calc. Creatinine Clearance 34 mL/min (70-130); Calcium 9.4 mg/dL (7.8-10.44); Carbon Dioxide 24 mmol/L (23-31); Chloride 106 mmol/L (98-107); Glucose 147 mg/dL (83-110); Potassium 4.3 mmol/L (3.5-5.1); Sodium 141 mmol/L (136-145)
[2021-07-18 06:18] LABS: Band 4 % (5-11); Lymphocytes 10 % (21-51); MDiff Complete? YES; Monocytes 1 % (0-10); Neutrophil 85 % (42-75)
[2021-07-18] MEDS: Budesonide 0.5 MG/2 ML NEB NEB SCH (07:30)
[2021-07-18] MEDS: hydrALAZINE 25 MG TAB PO SCH (09:15)
[2021-07-18] MEDS: guaiFENesin 200 MG TAB PO SCH (09:15)
[2021-07-18] MEDS: Cefdinir 300 MG CAP PO SCH (09:15)
[2021-07-18] MEDS: Amlodipine 10 MG TAB PO SCH (09:15)
[2021-07-18] MEDS: Cholecalciferol 1,000 UNITS (25 MCG) TAB PO SCH (09:15)
[2021-07-18] MEDS: Metoprolol Tartrate 50 MG TAB PO SCH (09:15)
[2021-07-18] MEDS: Ferrous Gluconate 324 MG TAB PO SCH (09:16)
[2021-07-18] MEDS: Enoxaparin Sodium 30 MG/0.3 ML SYRINGE SC SCH (09:16)
[2021-07-18 10:02] VITALS: BP 154/82; TEMP 97.7
== END 2021-07-18 10:57 | disposition home health service (06) | DRG 193 ==
LOC: 2NO 12:18
PROVIDERS: ADMIT Student in an Organized Health Care Education/Training Program; ATTEND Student in an Organized Health Care Education/Training Program
DX: J18.9 Pneumonia, unspecified organism (principal); J96.01 Acute respiratory failure with hypoxia; I50.33 Acute on chronic diastolic (congestive) heart failure; I13.0 Hypertensive heart and chronic kidney disease with heart failure and stage 1 through stage 4 chronic kidney disease, or unspecified chronic kidney disease; N17.9 Acute kidney failure, unspecified; E87.1 Hypo-osmolality and hyponatremia; I48.20 Chronic atrial fibrillation, unspecified; J44.1 Chronic obstructive pulmonary disease with (acute) exacerbation; J44.0 Chronic obstructive pulmonary disease with (acute) lower respiratory infection; Z20.822 Contact with and (suspected) exposure to COVID-19; E11.22 Type 2 diabetes mellitus with diabetic chronic kidney disease; I27.20 Pulmonary hypertension, unspecified; G47.33 Obstructive sleep apnea (adult) (pediatric); E87.6 Hypokalemia; E78.5 Hyperlipidemia, unspecified; D50.9 Iron deficiency anemia, unspecified; I35.0 Nonrheumatic aortic (valve) stenosis; I25.10 Atherosclerotic heart disease of native coronary artery without angina pectoris; N18.30 Chronic kidney disease, stage 3 unspecified; M19.90 Unspecified osteoarthritis, unspecified site; Z79.899 Other long term (current) drug therapy; Z86.16 Personal history of COVID-19; Z86.718 Personal history of other venous thrombosis and embolism
CPT/HCPCS: 36415; 36416; 36600; 71045; 71046; 80048; 82570; 82805; 83735; 83880; 84145; 84540; 85007; 85025; 85027; 87040; 87449; 94640; J0456; J0696; J1100; J1650; J1815; J1940; J3475; J3490; J7050; J7120; J7620; J7626; U0003; U0005

== ENCOUNTER 2021-09-07 10:34 | Outpatient (CLI) | payer MEDICARE, BC | END 2021-09-07 10:35 | disposition home or self-care (01) | LOC: RAD 10:34 | PROVIDERS: ATTEND Internal Medicine Critical Care Medicine | DX: R06.00 Dyspnea, unspecified (principal) | CPT/HCPCS: 71046 ==

== ENCOUNTER 2021-12-14 13:03 | Outpatient (CLI) | payer MEDICARE, BC | END 2021-12-14 13:04 | disposition home or self-care (01) | LOC: RAD 13:03 | PROVIDERS: ATTEND Internal Medicine Critical Care Medicine | DX: R06.00 Dyspnea, unspecified (principal); I51.7 Cardiomegaly; R91.8 Other nonspecific abnormal finding of lung field | CPT/HCPCS: 71046 ==

== ENCOUNTER 2022-12-13 09:13 | Outpatient (CLI) | payer MEDICARE, BC | END 2022-12-13 09:14 | disposition home or self-care (01) | LOC: RAD 09:13 | PROVIDERS: ATTEND Internal Medicine Critical Care Medicine | DX: R06.00 Dyspnea, unspecified (principal) | CPT/HCPCS: 71046 ==

== ENCOUNTER 2023-08-28 12:07 | Inpatient (IN) | payer MEDICARE, BC ==
[2023-08-28 13:04] LABS: #Eosinphils 0.1 thou/uL (0.0-0.7); #Monocytes 0.4 thou/uL (0.11-0.59); #Neutrophils 3.5 thou/uL (1.40-6.50); %Basophils 0.2 % (0.0-1.0); %Eosinophils 1.5 % (0.0-10.0); %Lymphocytes 15.2 % (21.0-51.0); %Monocytes 7.9 % (0.0-10.0); %Neutrophils 75.2 % (42.0-75.0); Hematocrit 37.7 % (36.0-47.0); Hemoglobin 11.5 g/dL (12.0-16.0); Mean Corpuscular HGB CONC 30.5 g/dL (32.0-36.0); Mean Corpuscular Hemoglobin 30.2 pg (27.0-31.0); Mean Platelet Volume 10.9 fL (7.4-10.4); Platelet Count 201 10x3/uL (130-400); Red Blood Cell (RBC) Count 3.81 mill/uL (4.20-5.40); White Blood Cell (WBC) Count 4.7 10x3/uL (4.8-10.8)
[2023-08-28] MEDS ORDERED: Furosemide 40 MG (4 mL) VIAL ONE (13:16)
[2023-08-28 13:24] LABS: ALT (SGPT) 12 U/L (8-55); AST (SGOT) 21 U/L (5-34); Albumin 4.2 g/dL (3.4-4.8); Alkaline Phosphatase 115 U/L (40-110); Anion Gap 13 mmol/L (10-20); BUN (Urea Nitrogen) 46 mg/dL (9.8-20.1); Bilirubin, Total 1.2 mg/dL (0.2-1.2); Calc. Creatinine Clearance 0 mL/min (70-130); Calcium 9.7 mg/dL (7.8-10.44); Carbon Dioxide 22 mmol/L (23-31); Chloride 108 mmol/L (98-107); Estimated GFR 27; Globulin 2.8 g/dL (2.4-3.5); Glucose 108 mg/dL (83-110); Potassium 4.4 mmol/L (3.5-5.1); Sodium 139 mmol/L (136-145)
[2023-08-28 13:27] LABS: Troponin I 0.024 ng/mL (< 0.028)
[2023-08-28] MEDS ORDERED: Lactulose 20 GM (30 mL) UDCUP PO PRN (15:48)
[2023-08-28] MEDS ORDERED: Polyethylene Glycol 3350 17 GM Packet PO PRN (15:48)
[2023-08-28 16:36] LABS: Bacteria/HPF 4+ HPF (None Seen); Bilirubin Negative (Negative); Blood, Urine Negative (Negative); CAUTI Indications for Culture Dysuria,urgency,freq; Clarity Clear (Clear); Glucose, Urine (Dipstick) Normal (Negative); Ketone, Urine Negative (Negative); Leukocyte 75 Leu/uL (Negative); Nitrite Negative (Negative); Protein, Urine (Dipstick) 70 mg/dL (Neg-Trace); RBC/HPF 0-3 HPF (0-3); Specific Gravity, Urine 1.009 (1.002-1.036); Squamous Epithelial 0-3 HPF (0-3); Urobilinogen Normal mg/dL (Less than 2); pH, Urine 5.5 (5.0-9.0)
[2023-08-28 16:41] LABS: Urine Culture Reflex No No
[2023-08-28 18:59] LABS: Iron 36 ug/dL (50-170); Iron Binding Capacity, Total 211 mcg/dL (265-497)
[2023-08-28] MEDS: hydrALAZINE 25 MG TAB PO SCH (20:57)
[2023-08-28] MEDS: Atorvastatin Calcium 40 MG TAB PO SCH (20:58)
[2023-08-28] MEDS: Furosemide 40 MG (4 mL) VIAL SLOW IVP SCH (20:58)
[2023-08-29 03:54] LABS: #Eosinphils 0.1 thou/uL (0.0-0.7); #Monocytes 0.4 thou/uL (0.11-0.59); #Neutrophils 2.6 thou/uL (1.40-6.50); %Basophils 0.3 % (0.0-1.0); %Eosinophils 3.6 % (0.0-10.0); %Lymphocytes 17.9 % (21.0-51.0); %Monocytes 10.7 % (0.0-10.0); %Neutrophils 67.2 % (42.0-75.0); Hemoglobin 10.2 g/dL (12.0-16.0); Mean Corpuscular HGB CONC 30.9 g/dL (32.0-36.0); Mean Corpuscular Hemoglobin 30.3 pg (27.0-31.0); Mean Corpuscular Volume 97.9 fl (78.0-98.0); Mean Platelet Volume 11.2 fL (7.4-10.4); Platelet Count 179 10x3/uL (130-400); RBC Distribution Width 15.8 % (11.5-14.5); Red Blood Cell (RBC) Count 3.37 mill/uL (4.20-5.40); White Blood Cell (WBC) Count 3.9 10x3/uL (4.8-10.8)
[2023-08-29 04:32] LABS: ALT (SGPT) 12 U/L (8-55); AST (SGOT) 19 U/L (5-34); Albumin 3.6 g/dL (3.4-4.8); Alkaline Phosphatase 104 U/L (40-110); Anion Gap 12 mmol/L (10-20); BUN (Urea Nitrogen) 48 mg/dL (9.8-20.1); Bilirubin, Total 0.7 mg/dL (0.2-1.2); Calc. Creatinine Clearance 37 mL/min (70-130); Calcium 9.2 mg/dL (7.8-10.44); Carbon Dioxide 26 mmol/L (23-31); Chloride 107 mmol/L (98-107); Estimated GFR 25; Globulin 2.4 g/dL (2.4-3.5); Glucose 99 mg/dL (83-110); Potassium 4.1 mmol/L (3.5-5.1); Sodium 141 mmol/L (136-145)
[2023-08-29] MEDS: Furosemide 40 MG (4 mL) VIAL SLOW IVP SCH ×2 (05:21→18:20)
[2023-08-29] MEDS ORDERED: Communication Order-Pharmacy FS SCH (08:24)
[2023-08-29] MEDS: Ferrous Gluconate 324 MG TAB PO SCH (08:38)
[2023-08-29] MEDS: Calcium Carbonate 600 MG TAB PO SCH (08:38)
[2023-08-29] MEDS: Allopurinol 100 MG TAB PO SCH (08:39)
[2023-08-29] MEDS: Carvedilol 6.25 MG TAB PO SCH (08:39)
[2023-08-29] MEDS: Cholecalciferol 1,000 UNITS (25 MCG) TAB PO SCH (08:39)
[2023-08-29] MEDS: Amlodipine 10 MG TAB PO SCH (08:40)
[2023-08-29] MEDS: Aspirin 81 mg Enteric Coated Tablet PO SCH (08:40)
[2023-08-29 08:41] LABS: Hematocrit 34.6 % (36.0-47.0); Hemoglobin 10.5 g/dL (12.0-16.0); Platelet Count 174 10x3/uL (130-400)
[2023-08-29] MEDS: Enoxaparin 100 MG (1 mL) SYRINGE SC SCH (08:47)
[2023-08-29] MEDS ORDERED: Enoxaparin 40 MG (0.4 mL) SYRINGE SC SCH (09:00)
[2023-08-29] MEDS ORDERED: Enoxaparin 80 MG (0.8 mL) SYRINGE SC SCH (09:00)
[2023-08-30 05:39] LABS: #Eosinphils 0.1 thou/uL (0.0-0.7); #Monocytes 0.4 thou/uL (0.11-0.59); #Neutrophils 2.3 thou/uL (1.40-6.50); %Basophils 0.3 % (0.0-1.0); %Eosinophils 3.9 % (0.0-10.0); %Lymphocytes 18.8 % (21.0-51.0); %Neutrophils 65.7 % (42.0-75.0); Hematocrit 32.9 % (36.0-47.0); Hemoglobin 10.1 g/dL (12.0-16.0); Mean Corpuscular HGB CONC 30.7 g/dL (32.0-36.0); Mean Corpuscular Hemoglobin 30.2 pg (27.0-31.0); Mean Corpuscular Volume 98.5 fl (78.0-98.0); Mean Platelet Volume 11.2 fL (7.4-10.4); Platelet Count 173 10x3/uL (130-400); RBC Distribution Width 15.7 % (11.5-14.5); Red Blood Cell (RBC) Count 3.34 mill/uL (4.20-5.40); White Blood Cell (WBC) Count 3.6 10x3/uL (4.8-10.8)
[2023-08-30 06:05] LABS: ALT (SGPT) 9 U/L (8-55); AST (SGOT) 16 U/L (5-34); Albumin 3.4 g/dL (3.4-4.8); Alkaline Phosphatase 95 U/L (40-110); Anion Gap 13 mmol/L (10-20); BUN (Urea Nitrogen) 52 mg/dL (9.8-20.1); Bilirubin, Total 0.7 mg/dL (0.2-1.2); Calc. Creatinine Clearance 35 mL/min (70-130); Calcium 8.9 mg/dL (7.8-10.44); Carbon Dioxide 28 mmol/L (23-31); Cardiac Risk 3.3 (Less than 4.5); Chloride 105 mmol/L (98-107); Cholesterol 117 mg/dl (< 200 Desired); Estimated GFR 25; Globulin 2.3 g/dL (2.4-3.5); Glucose 94 mg/dL (83-110); HDL Cholesterol 35 mg/dL (>60 Neg Risk); LDL Cholesterol, Calculated 64 mg/dL; Protein, Total 5.7 g/dL (5.8-8.1); Sodium 142 mmol/L (136-145); Triglycerides 92 mg/dL (Less than 150)
[2023-08-31] MEDS: Furosemide 40 MG (4 mL) VIAL SLOW IVP SCH ×2 (00:04→23:50)
[2023-08-31 05:12] LABS: #Eosinphils 0.1 thou/uL (0.0-0.7); #Monocytes 0.5 thou/uL (0.11-0.59); #Neutrophils 2.5 thou/uL (1.40-6.50); %Eosinophils 3.6 % (0.0-10.0); %Lymphocytes 19.5 % (21.0-51.0); %Monocytes 11.6 % (0.0-10.0); Hematocrit 33.6 % (36.0-47.0); Hemoglobin 10.3 g/dL (12.0-16.0); Mean Corpuscular HGB CONC 30.7 g/dL (32.0-36.0); Mean Corpuscular Hemoglobin 29.5 pg (27.0-31.0); Mean Corpuscular Volume 96.3 fl (78.0-98.0); Mean Platelet Volume 11.3 fL (7.4-10.4); Platelet Count 165 10x3/uL (130-400); RBC Distribution Width 15.7 % (11.5-14.5); Red Blood Cell (RBC) Count 3.49 mill/uL (4.20-5.40); White Blood Cell (WBC) Count 3.9 10x3/uL (4.8-10.8)
[2023-08-31 05:38] LABS: ALT (SGPT) 9 U/L (8-55); AST (SGOT) 17 U/L (5-34); Albumin 3.4 g/dL (3.4-4.8); Alkaline Phosphatase 99 U/L (40-110); Anion Gap 14 mmol/L (10-20); BUN (Urea Nitrogen) 56 mg/dL (9.8-20.1); Bilirubin, Total 0.7 mg/dL (0.2-1.2); Calc. Creatinine Clearance 31 mL/min (70-130); Calcium 8.7 mg/dL (7.8-10.44); Carbon Dioxide 30 mmol/L (23-31); Chloride 101 mmol/L (98-107); Estimated GFR 22; Globulin 2.4 g/dL (2.4-3.5); Glucose 99 mg/dL (83-110); Potassium 4.1 mmol/L (3.5-5.1); Protein, Total 5.8 g/dL (5.8-8.1); Sodium 141 mmol/L (136-145)
[2023-08-31] MEDS ORDERED: [UNRECOGNIZED DRUG - REMARK] FS PRN (11:47)
[2023-09-01 05:00] LABS: #Eosinphils 0.2 thou/uL (0.0-0.7); #Monocytes 0.5 thou/uL (0.11-0.59); #Neutrophils 2.6 thou/uL (1.40-6.50); %Basophils 0.2 % (0.0-1.0); %Eosinophils 4.1 % (0.0-10.0); %Lymphocytes 19.5 % (21.0-51.0); %Monocytes 12.2 % (0.0-10.0); Hematocrit 34.4 % (36.0-47.0); Hemoglobin 10.7 g/dL (12.0-16.0); Mean Corpuscular HGB CONC 31.1 g/dL (32.0-36.0); Mean Corpuscular Volume 96.4 fl (78.0-98.0); Mean Platelet Volume 10.9 fL (7.4-10.4); Platelet Count 172 10x3/uL (130-400); RBC Distribution Width 15.8 % (11.5-14.5); Red Blood Cell (RBC) Count 3.57 mill/uL (4.20-5.40); White Blood Cell (WBC) Count 4.1 10x3/uL (4.8-10.8)
[2023-09-01 05:01] LABS: Hematocrit 34.7 % (36.0-47.0); Hemoglobin 10.8 g/dL (12.0-16.0); Platelet Count 180 10x3/uL (130-400)
[2023-09-01 05:23] LABS: ALT (SGPT) 9 U/L (8-55); AST (SGOT) 17 U/L (5-34); Albumin 3.5 g/dL (3.4-4.8); Alkaline Phosphatase 98 U/L (40-110); Anion Gap 12 mmol/L (10-20); BUN (Urea Nitrogen) 61 mg/dL (9.8-20.1); Bilirubin, Total 1.1 mg/dL (0.2-1.2); Calc. Creatinine Clearance 31 mL/min (70-130); Calcium 9.1 mg/dL (7.8-10.44); Carbon Dioxide 35 mmol/L (23-31); Chloride 97 mmol/L (98-107); Estimated GFR 23; Globulin 2.5 g/dL (2.4-3.5); Glucose 87 mg/dL (83-110); Potassium 4.1 mmol/L (3.5-5.1); Sodium 140 mmol/L (136-145)
[2023-09-01] MEDS: AcetaZOLAMIDE 250 MG TAB PO SCH ×2 (11:03→21:30)
[2023-09-01] MEDS ORDERED: Furosemide 40 MG (4 mL) VIAL SLOW IVP SCH (14:00)
[2023-09-01] MEDS: Furosemide 20 MG (2 mL) VIAL SLOW IVP SCH (15:31)
[2023-09-02 04:52] LABS: #Eosinphils 0.2 thou/uL (0.0-0.7); #Monocytes 0.6 thou/uL (0.11-0.59); #Neutrophils 3.2 thou/uL (1.40-6.50); %Basophils 0.2 % (0.0-1.0); %Eosinophils 3.3 % (0.0-10.0); %Lymphocytes 18.4 % (21.0-51.0); %Monocytes 12.9 % (0.0-10.0); Hematocrit 34.6 % (36.0-47.0); Hemoglobin 10.8 g/dL (12.0-16.0); Mean Corpuscular HGB CONC 31.2 g/dL (32.0-36.0); Mean Corpuscular Hemoglobin 30.3 pg (27.0-31.0); Mean Corpuscular Volume 96.9 fl (78.0-98.0); Mean Platelet Volume 11.6 fL (7.4-10.4); Platelet Count 177 10x3/uL (130-400); RBC Distribution Width 15.8 % (11.5-14.5); Red Blood Cell (RBC) Count 3.57 mill/uL (4.20-5.40); White Blood Cell (WBC) Count 4.9 10x3/uL (4.8-10.8)
[2023-09-02 05:24] LABS: ALT (SGPT) 24 U/L (8-55); AST (SGOT) 37 U/L (5-34); Albumin 3.6 g/dL (3.4-4.8); Alkaline Phosphatase 99 U/L (40-110); Anion Gap 12 mmol/L (10-20); BUN (Urea Nitrogen) 61 mg/dL (9.8-20.1); Bilirubin, Total 1.2 mg/dL (0.2-1.2); Calc. Creatinine Clearance 29 mL/min (70-130); Calcium 9.1 mg/dL (7.8-10.44); Carbon Dioxide 36 mmol/L (23-31); Chloride 95 mmol/L (98-107); Estimated GFR 22; Globulin 2.6 g/dL (2.4-3.5); Glucose 94 mg/dL (83-110); Potassium 4.1 mmol/L (3.5-5.1); Protein, Total 6.2 g/dL (5.8-8.1); Sodium 139 mmol/L (136-145)
[2023-09-02] MEDS ORDERED: Dextrose 50% Abboject 50 ML SYRINGE SLOW IVP PRN (08:29)
[2023-09-02] MEDS ORDERED: Dextrose 5% in Water 1,000 ML IV PRN (08:29)
[2023-09-02] MEDS ORDERED: Glucagon 1 MG/ML KIT IM PRN (08:29)
[2023-09-02] MEDS: predniSONE 20 MG TAB PO SCH (08:52)
[2023-09-02] MEDS: HumaLOG 300 UNITS/3 ML VIAL SC PRN (17:03)
[2023-09-02] MEDS ORDERED: Colchicine 0.6 MG TAB PO SCH (21:00)
[2023-09-02] MEDS: Colchicine 0.3 MG TAB PO SCH (21:57)
[2023-09-03 04:35] LABS: #Monocytes 0.5 thou/uL (0.11-0.59); #Neutrophils 3.5 thou/uL (1.40-6.50); %Basophils 0.2 % (0.0-1.0); %Lymphocytes 16.3 % (21.0-51.0); %Monocytes 9.7 % (0.0-10.0); %Neutrophils 73.4 % (42.0-75.0); Hematocrit 34.8 % (36.0-47.0); Hemoglobin 10.8 g/dL (12.0-16.0); Mean Corpuscular Hemoglobin 29.1 pg (27.0-31.0); Mean Corpuscular Volume 93.8 fl (78.0-98.0); Mean Platelet Volume 11.7 fL (7.4-10.4); Platelet Count 168 10x3/uL (130-400); RBC Distribution Width 15.2 % (11.5-14.5); Red Blood Cell (RBC) Count 3.71 mill/uL (4.20-5.40); White Blood Cell (WBC) Count 4.7 10x3/uL (4.8-10.8)
[2023-09-03 05:06] LABS: ALT (SGPT) 44 U/L (8-55); AST (SGOT) 55 U/L (5-34); Albumin 3.5 g/dL (3.4-4.8); Alkaline Phosphatase 100 U/L (40-110); Anion Gap 10 mmol/L (10-20); BUN (Urea Nitrogen) 68 mg/dL (9.8-20.1); Bilirubin, Total 0.9 mg/dL (0.2-1.2); Calc. Creatinine Clearance 27 mL/min (70-130); Calcium 9.3 mg/dL (7.8-10.44); Carbon Dioxide 37 mmol/L (23-31); Chloride 96 mmol/L (98-107); Estimated GFR 20; Glucose 144 mg/dL (83-110); Potassium 4.2 mmol/L (3.5-5.1); Protein, Total 6.5 g/dL (5.8-8.1); Sodium 139 mmol/L (136-145); Uric Acid 8.2 mg/dL (2.6-6.0)
[2023-09-03] MEDS ORDERED: predniSONE 20 MG TAB PO SCH (08:00)
[2023-09-03] MEDS: Colchicine 0.3 MG TAB PO SCH (10:50)
[2023-09-03] MEDS: Furosemide 40 MG TAB PO SCH (14:33)
[2023-09-04 04:39] LABS: #Monocytes 0.3 thou/uL (0.11-0.59); #Neutrophils 3.6 thou/uL (1.40-6.50); %Lymphocytes 15.9 % (21.0-51.0); %Monocytes 5.7 % (0.0-10.0); Hematocrit 32.7 % (36.0-47.0); Hemoglobin 10.4 g/dL (12.0-16.0); Mean Corpuscular HGB CONC 31.8 g/dL (32.0-36.0); Mean Corpuscular Hemoglobin 30.1 pg (27.0-31.0); Mean Corpuscular Volume 94.8 fl (78.0-98.0); Mean Platelet Volume 11.9 fL (7.4-10.4); Platelet Count 177 10x3/uL (130-400); RBC Distribution Width 15.2 % (11.5-14.5); Red Blood Cell (RBC) Count 3.45 mill/uL (4.20-5.40); White Blood Cell (WBC) Count 4.6 10x3/uL (4.8-10.8)
[2023-09-04 04:41] LABS: Hematocrit 32.8 % (36.0-47.0); Hemoglobin 10.4 g/dL (12.0-16.0); Platelet Count 171 10x3/uL (130-400)
[2023-09-04 05:06] LABS: ALT (SGPT) 67 U/L (8-55); AST (SGOT) 73 U/L (5-34); Albumin 3.8 g/dL (3.4-4.8); Alkaline Phosphatase 96 U/L (40-110); Anion Gap 15 mmol/L (10-20); BUN (Urea Nitrogen) 89 mg/dL (9.8-20.1); Bilirubin, Total 0.7 mg/dL (0.2-1.2); Calc. Creatinine Clearance 23 mL/min (70-130); Calcium 9.3 mg/dL (7.8-10.44); Carbon Dioxide 32 mmol/L (23-31); Chloride 93 mmol/L (98-107); Estimated GFR 18; Globulin 2.9 g/dL (2.4-3.5); Glucose 138 mg/dL (83-110); Potassium 4.5 mmol/L (3.5-5.1); Protein, Total 6.7 g/dL (5.8-8.1); Sodium 135 mmol/L (136-145)
[2023-09-04] MEDS: Sodium Chloride 0.9% 1,000 ML IV SCH (05:31)
[2023-09-04] MEDS ORDERED: Lidocaine 1% (PF) 30 ML VIAL ONE ×2 (08:56→10:00)
[2023-09-04] MEDS ORDERED: Gentamicin 80 MG/2 ML VIAL ONE (08:57)
[2023-09-04] MEDS ORDERED: CEFAZOLIN 1 GM VIAL ONE (08:57)
[2023-09-04] MEDS ORDERED: CEFAZOLIN 2 GM VIAL ONE (08:57)
[2023-09-04] MEDS ORDERED: Iopamidol 370 76% 100 ML VIAL ONE (09:40)
[2023-09-04] MEDS ORDERED: Midazolam HCl 2 mg/2 ml Vial ONE (09:41)
[2023-09-04] MEDS ORDERED: fentaNYL 50 mcg/mL 1 mL Vial ONE (09:41)
[2023-09-04] MEDS: Carvedilol 6.25 MG TAB PO SCH ×2 (12:02→16:12)
[2023-09-04] MEDS: Cephalexin 250 MG CAP PO SCH (16:11)
[2023-09-04] MEDS: AcetaZOLAMIDE 250 MG TAB PO SCH (21:03)
[2023-09-05 05:13] LABS: #Monocytes 0.8 thou/uL (0.11-0.59); #Neutrophils 5.9 thou/uL (1.40-6.50); %Lymphocytes 11.2 % (21.0-51.0); %Neutrophils 78.5 % (42.0-75.0); Hematocrit 34.7 % (36.0-47.0); Mean Corpuscular HGB CONC 31.7 g/dL (32.0-36.0); Mean Corpuscular Hemoglobin 30.1 pg (27.0-31.0); Mean Corpuscular Volume 94.8 fl (78.0-98.0); Mean Platelet Volume 11.4 fL (7.4-10.4); Platelet Count 202 10x3/uL (130-400); RBC Distribution Width 15.1 % (11.5-14.5); Red Blood Cell (RBC) Count 3.66 mill/uL (4.20-5.40); White Blood Cell (WBC) Count 7.5 10x3/uL (4.8-10.8)
[2023-09-05 05:40] LABS: ALT (SGPT) 38 U/L (8-55); AST (SGOT) 47 U/L (5-34); Albumin 3.7 g/dL (3.4-4.8); Alkaline Phosphatase 102 U/L (40-110); Anion Gap 14 mmol/L (10-20); BUN (Urea Nitrogen) 89 mg/dL (9.8-20.1); Bilirubin, Total 0.5 mg/dL (0.2-1.2); Calc. Creatinine Clearance 22 mL/min (70-130); Carbon Dioxide 29 mmol/L (23-31); Chloride 98 mmol/L (98-107); Estimated GFR 17; Globulin 2.9 g/dL (2.4-3.5); Glucose 157 mg/dL (83-110); Potassium 4.6 mmol/L (3.5-5.1); Protein, Total 6.6 g/dL (5.8-8.1); Sodium 136 mmol/L (136-145)
[2023-09-05] MEDS ORDERED: Acetaminophen 325 MG TAB PO PRN (09:02)
[2023-09-05 09:47] LABS: Hemoglobin A1c 6.2 % (4.0-6.0)
[2023-09-05] MEDS: Insulin Glargine 30 UNITS/0.3 ML VIAL SC SCH (11:01)
[2023-09-05] MEDS ORDERED: HumaLOG 300 UNITS/3 ML VIAL SC PRN (21:26)
[2023-09-06 04:43] LABS: #Monocytes 0.5 thou/uL (0.11-0.59); #Neutrophils 4.8 thou/uL (1.40-6.50); %Lymphocytes 12.3 % (21.0-51.0); %Monocytes 8.6 % (0.0-10.0); %Neutrophils 78.6 % (42.0-75.0); Hematocrit 34.6 % (36.0-47.0); Hemoglobin 10.9 g/dL (12.0-16.0); Mean Corpuscular HGB CONC 31.5 g/dL (32.0-36.0); Mean Corpuscular Hemoglobin 29.4 pg (27.0-31.0); Mean Corpuscular Volume 93.3 fl (78.0-98.0); Mean Platelet Volume 11.5 fL (7.4-10.4); Platelet Count 197 10x3/uL (130-400); RBC Distribution Width 14.9 % (11.5-14.5); Red Blood Cell (RBC) Count 3.71 mill/uL (4.20-5.40); White Blood Cell (WBC) Count 6.1 10x3/uL (4.8-10.8)
[2023-09-06 05:15] LABS: ALT (SGPT) 18 U/L (8-55); AST (SGOT) 29 U/L (5-34); Albumin 3.5 g/dL (3.4-4.8); Alkaline Phosphatase 92 U/L (40-110); Anion Gap 13 mmol/L (10-20); BUN (Urea Nitrogen) 92 mg/dL (9.8-20.1); Bilirubin, Total 0.4 mg/dL (0.2-1.2); Calc. Creatinine Clearance 27 mL/min (70-130); Calcium 8.8 mg/dL (7.8-10.44); Carbon Dioxide 28 mmol/L (23-31); Chloride 101 mmol/L (98-107); Estimated GFR 22; Globulin 2.7 g/dL (2.4-3.5); Glucose 164 mg/dL (83-110); Potassium 4.6 mmol/L (3.5-5.1); Protein, Total 6.2 g/dL (5.8-8.1); Sodium 137 mmol/L (136-145)
[2023-09-06] MEDS: Carvedilol 6.25 MG TAB PO SCH (09:45)
[2023-09-06 13:46] VITALS: TEMP 97.7
[2023-09-06 13:47] VITALS: BP 128/69
[2023-09-06 13:50] VITALS: BMI 20.6
== END 2023-09-06 15:09 | disposition home or self-care (01) | DRG 242 ==
LOC: ERS 12:07 → 2NO 14:24
PROVIDERS: ADMIT Family Medicine; ATTEND Family Medicine
PROC: 0JH604Z Insertion of Pacemaker, Single Chamber into Chest Subcutaneous Tissue and Fascia, Open Approach (ICD-10-PCS; principal; 2023-09-04)
PROC: 02HK3JZ Insertion of Pacemaker Lead into Right Ventricle, Percutaneous Approach (ICD-10-PCS; 2023-09-04)
PROC: B5171ZZ Fluoroscopy of Left Subclavian Vein using Low Osmolar Contrast (ICD-10-PCS; 2023-09-04)
DX: I13.0 Hypertensive heart and chronic kidney disease with heart failure and stage 1 through stage 4 chronic kidney disease, or unspecified chronic kidney disease (principal); I50.33 Acute on chronic diastolic (congestive) heart failure; J96.21 Acute and chronic respiratory failure with hypoxia; I48.20 Chronic atrial fibrillation, unspecified; J44.1 Chronic obstructive pulmonary disease with (acute) exacerbation; E87.3 Alkalosis; N18.4 Chronic kidney disease, stage 4 (severe); N17.9 Acute kidney failure, unspecified; E11.22 Type 2 diabetes mellitus with diabetic chronic kidney disease; I27.20 Pulmonary hypertension, unspecified; E78.5 Hyperlipidemia, unspecified; E66.9 Obesity, unspecified; G47.33 Obstructive sleep apnea (adult) (pediatric); I25.10 Atherosclerotic heart disease of native coronary artery without angina pectoris; R53.81 Other malaise; D63.1 Anemia in chronic kidney disease; D72.819 Decreased white blood cell count, unspecified; E78.00 Pure hypercholesterolemia, unspecified; K21.9 Gastro-esophageal reflux disease without esophagitis; I35.0 Nonrheumatic aortic (valve) stenosis; M10.9 Gout, unspecified; Z79.899 Other long term (current) drug therapy; Z68.20 Body mass index [BMI] 20.0-20.9, adult; Z98.890 Other specified postprocedural states; Z82.49 Family history of ischemic heart disease and other diseases of the circulatory system; Z83.3 Family history of diabetes mellitus
CPT/HCPCS: 33207; 36415; 36416; 71045; 80053; 80061; 81001; 82607; 82728; 83036; 83540; 83550; 83880; 84484; 84550; 85014; 85018; 85025; 85046; 85049; 93005; 93010; 93306; 93970; 94760; 96374; 97139; 99152; 99153; C1786; C1898; J0690; J1580; J1650; J1815; J1940; J2001; J2250; J3010; J7050; J7512; Q9967

== ENCOUNTER 2023-12-11 09:55 | Outpatient (CLI) | payer MEDICARE, BC | END 2023-12-11 09:56 | disposition home or self-care (01) | LOC: RAD 09:55 | PROVIDERS: ATTEND Internal Medicine Critical Care Medicine | DX: R06.00 Dyspnea, unspecified (principal); I51.7 Cardiomegaly; R09.89 Other specified symptoms and signs involving the circulatory and respiratory systems | CPT/HCPCS: 71046 ==